=== PATIENT | female | born 1950 | race Caucasian/White ===

== ENCOUNTER 2021-04-10 11:03 | Inpatient (IN) | payer MEDICARE, BC ==
[~2021-04-10] VITALS: Ht 165.1 cm; Wt 72.9 kg
[2021-04-10] MEDS ORDERED: METF-397 PO (12:20)
[2021-04-10] MEDS ORDERED: LEVO75CA5 PO (12:20)
[2021-04-10] MEDS ORDERED: HYDR200T46 PO (12:20)
[2021-04-10] MEDS ORDERED: ADAL80PE2 SQ (12:20)
[2021-04-10] MEDS ORDERED: MONT10TA32 PO (12:20)
[2021-04-10] MEDS ORDERED: CHOL-34 PO (12:20)
[2021-04-10] MEDS ORDERED: PREG75CA75 PO (12:20)
[2021-04-10] MEDS ORDERED: ASPI-1238 PO (12:20)
[2021-04-10] MEDS ORDERED: EZET10TA49 PO ×2 (12:20)
[2021-04-10] MEDS ORDERED: ROPI0.253 PO (12:20)
[2021-04-10] MEDS ORDERED: TRAM50TA3 PO (12:20)
[2021-04-10] MEDS ORDERED: MELO7.5T46 PO (12:20)
[2021-04-10] MEDS ORDERED: LEUC5TAB PO (12:20)
[2021-04-10] MEDS ORDERED: AMIT100T2 PO (12:20)
[2021-04-10] MEDS ORDERED: PANT40TA52 PO (12:20)
[2021-04-10] MEDS ORDERED: ZOLP10TA PO (12:20)
[2021-04-10] MEDS ORDERED: FOLI1TAB33 PO (12:20)
[2021-04-10] MEDS ORDERED: RT-ALBUINH IH (12:20)
[2021-04-10] MEDS ORDERED: METH25VI15 IJ (12:20)
[2021-04-10 15:51] VITALS: BP 121/81
--- OUTSIDE RECORDS SUMMARY | 2021-04-10 16:06 | XMS REPORT | Clinical Summary ---
Author Author [facility] Organization [facility] Address Unknown Phone Unavailable Care Team Providers Care [employer] Name Role Phone Dae Jacinto MD Unavailable Rigo Fierro MD PCP Anita Mondragon MD Unavailable Unavailable Source Comments Some departments are not documenting in the electronic medical record. If you d o not see the information that you expected, contact Release of Information in [facility] Information Management department at [phone] for further assistan ce in locating additional records.[facility] Allergies No Known Active Allergies Medications End Date Status Medication Sig Dispensed Refills Start Date Active pantoprazole DR Take 40 mg by 0 (PROTONIX) 40 mg tablet mouth twice daily. Active metFORMIN-XR(+) Take 500 mg 0 (GLUCOPHAGE XR) 500 mg by mouth tablet twice daily with meals. Active hydroxychloroquine Take 200 mg 0 (PLAQUENIL) 200 mg tablet by mouth twice daily. Active simvastatin (ZOCOR) 40 mg Take 40 mg by 0 tablet mouth at bedtime daily. Active levothyroxine (SYNTHROID) Take 50 mcg 0 50 mcg tablet by mouth daily. Active predniSONE (DELTASONE) 5 Take 7.5 mg 0 mg tablet by mouth daily. Patient takes 1 1/5 tabs daily Active nitrofurantoin SR Take 100 mg 0 (MACROBID) 100 mg capsule by mouth daily. Active traMADol (ULTRAM) 50 mg Take 50 mg by 0 tablet mouth twice daily. Active folic acid (FOLVITE) 1 mg Take 1 mg by 0 tablet mouth daily. Active amitriptyline (ELAVIL) 50 Take 50 mg by 0 mg tablet mouth at bedtime daily. Active montelukast (SINGULAIR) Take 10 mg by 0 10 mg tablet mouth daily. Active Leucovorin Calcium 10 mg Take 0.5 Tabs 0 tab by mouth every 7 days. Active methotrexate PF 25 mg/mL Inject 50 0 injection mg/m2 into area(s) as directed every 7 days. Active pregabalin (LYRICA) 75 mg Take 75 mg by 0 capsule mouth three times daily. Active sodium phosphate Insert or 0 (FLEET'S) 19-7 gram/118 Apply 1 Enema mL enema to rectal area as directed as directed. follow package directions and take every 3-4 days as needed for constipation Active lubiprostone (AMITIZA) 24 Take 1 Cap by 180 Cap 1 12/06/201 mcg cap mouth twice 6 daily with meals. Active Problems Problem Noted Date Urge incontinence 12/17/2015 Overview: Formatting of this note might be differ ent from the original. Extensive surgical hx including KATE, BS O, bladder neck sling, perirectal mass excision. L$/5 back surgery (no pe rineal sensation postop) Chronic constipation L ast Assessment & Plan: Formatting of this note might be differ ent from the original. - VUDS, patient to schedule closer to D ec - cysto - renal US - restart cic q3h Surgical History Surgery Date Site/Laterality Comments HX CHOLECYSTECTOMY 1993 HX SECTION 1976, 1978 HX APPENDECTOMY 1982 HX HYSTERECTOMY 1982 total abdominal LYSIS OF ADHESIONS 2009 HX ENDOSCOPY UPPER GASTROINTESTINAL 06/17/2016 N/A EGD, Fl ex Sig, ARM all in the same day nilda with ENDOSCOPY any provider for dysphagia and obstructive defecation performed by Matteo Jacinto MD at ENDO/GI SIGMOIDOSCOPY 06/17/2016 N/A Flex Sig, EGD, ARM all in the same day nilda with any provider for dysphagia and obstruct carmella defecation performed by Matteo Jacinto MD at ENDO/GI UPPER GASTROINTESTINAL 06/17/2016 N/A ESOPHAG OGASTRODUODENOSCOPY BALLOON DILATATION ENDOSCOPY performed by Manuel Jacinto MD at ENDO/GI UPPER GASTROINTESTINAL 06/17/2016 ESOPHAGOGASTROD UODENOSCOPY BIOPSY performed by ENDOSCOPY Dae Jacinto MD at END O/GI SIGMOIDOSCOPY 06/17/2016 SIGMOIDOSCOPY BIOPS Y performed by Dae Jacinto MD at ENDO/GI ANORECTAL MANOMETRY 06/17/2016 N/A MANOMETRY ANORECTAL, EGD, Flex Sig all on same day nilda with any provider for obstructive defecation and dysphagia per Dr. Jacinto perform ed by Sonia Doyle MD at ENDO/GI Medical History Medical History Date Comments Type II diabetes mellitus (HCC) Essential hypertension Acid reflux Asthma Arthritis 2011 rheumatoid Depression Hyperlipemia Thyroid disorder Family History Medical History Relation Name Comments Autoimmune Disease Daughter lupus Autoimmune Disease Daughter esosinophilic esoph agitis Emphysema Father Autoimmune Disease Maternal rheumtatoid Grandmother Autoimmune Disease Mother rheumatoid GI Cancer Mother Pancreatic Relation Name Status Comments Brother Alive Brother Alive Daughter Alive Daughter Alive Father Maternal Grandfather Maternal Grandmother Mother Paternal Grandfather Paternal Grandmother Social History Date Tobacco Use Types Packs/Day Years Used Never Smoker Smokeless Tobacco: Never Used Comments Alcohol Use Standard Drinks/Week No 0 (1 standard drink = 0.6 o z pure alcohol) Sex Assigned at Date Recorded Not on file Last Filed Vital Signs Reading Time Taken Comments Vital Sign 120/80 06/17/2016 3:11 PM [employer] Blood Pressure 82 06/17/2016 3:11 PM [employer]IST Pulse 37 C (98.6 F) 06/17/2016 1:56 PM [employer] SPECIALIST Temperature 14 04/23/2016 9:56 AM CDT Respiratory Rate 97% 06/17/2016 3:11 PM [employer] SPECIALIST Oxygen Saturation - - Inhaled Oxygen Concentration 74.8 kg (165 lb) 06/17/2016 1:56 PM [employer] SPECIALIST Weight 165.1 cm (5' 5") 06/17/2016 1:56 PM [employer] SPECIALIST Height 27.46 06/17/2016 1:56 PM [employer] SPECIALIST Body Mass Index Plan of Treatment Health Maintenance Due Date Last Done Comments DTAP/TDAP VACCINES (1 - 1969 Tdap) HEPATITIS C SCREENING 1969 PHYSICAL (COMPREHENSIVE) 1969 EXAM BREAST CANCER SCREENING 1991 COLORECTAL CANCER 2001 SCREENING SHINGLES RECOMBINANT 2001 VACCINE (1 of 2) OSTEOPOROSIS 2016 SCREENING/MONITORING PNEUMONIA (PPSV23) 2016 VACCINE (1 of 1 - PPSV23) INFLUENZA VACCINE 02/03/2021 Results Not on filefrom Last 3 Months Insurance Type Payer Benefit Subscriber ID Effective Phone Address Plan / Dates Group PPO BCBS TEDDY BCBS TEDDY [id number] 2001- FED EMP Present PROGRAM Medicare MEDICARE MEDICARE [id number] 2016- PART A AND Present B Advance Directives 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
--- OUTSIDE RECORDS SUMMARY | 2021-04-10 16:06 | XMS REPORT | Clinical Summary ---
Author Author [facility] Organization [facility] Address Unknown Phone Unavailable Care Team Providers Care [employer] Name Role Phone PCP Unavailable Allergies Not on File Medications Not on file Active Problems Not on file Social History Date Tobacco Use Types Packs/Day Years Used Never Assessed Sex Assigned at Date Recorded Not on file Last Filed Vital Signs Not on file Plan of Treatment Not on file Results Not on filefrom Last 3 Months
[2021-04-10] MEDS ORDERED: BISACODYL 10 MG SUPP (DULCOLAX) PR PRN (17:00)
[2021-04-10] MEDS ORDERED: guaiFENesin/CODEINE (ROBITUSSIN AC) 10ML UDC PO PRN (17:00)
[2021-04-10] MEDS ORDERED: DOCUSATE SODIUM 100 MG (COLACE) CAP PO PRN (17:00)
[2021-04-10] MEDS ORDERED: LOPERAMIDE 2 MG (IMODIUM) TABLET PO PRN (17:00)
[2021-04-10] MEDS ORDERED: LACTULOSE SYRUP 10GM/15ML (ENULOSE) 30ML UDC PO PRN (17:00)
[2021-04-10] MEDS ORDERED: ALPRAZolam 0.25 MG (XANAX) TAB PO PRN (17:00)
[2021-04-10] MEDS ORDERED: CALCIUM CARBONATE 500 MG (TUMS) TAB.CHEW PO PRN (17:00)
[2021-04-10] MEDS ORDERED: ONDANSETRON 4 MG (ZOFRAN) ORAL DISSOLVE TAB PO PRN (17:00)
[2021-04-10] MEDS ORDERED: FLEET ENEMA ADULT 1 EA BTL PR PRN (17:00)
[2021-04-10] MEDS ORDERED: diphenhydrAMINE 25 MG TAB (BENADRYL) PO PRN (17:00)
[2021-04-10] MEDS ORDERED: MELATONIN 3 MG TABLET PO PRN (17:00)
[2021-04-10] MEDS ORDERED: METHOTREXATE 50 MG/2 ML PF IJ SCH (17:15)
[2021-04-10] MEDS ORDERED: RT-ALBUTEROL SULF 2.5 MG/3 ML PRE-MIX VIAL IH PRN (17:15)
[2021-04-10] MEDS ORDERED: ACETAMINOPHEN 500 MG TAB (TYLENOL) PO PRN (17:15)
[2021-04-10] MEDS ORDERED: NON-FORMULARY MEDICATION 1 EA EA (Zolpidem Tartrate (Ambien) 10 MG) PO PRN (17:15)
[2021-04-10] MEDS ORDERED: ACETAMINOPHEN 325 MG TABLET PO PRN (17:15)
[2021-04-10] MEDS ORDERED: ADALIMUMAB 40 MG SQ SCH (17:15)
[2021-04-10] MEDS ORDERED: LEUCOVORIN CALCIUM 5 MG PO SCH (17:15)
[2021-04-10] MEDS: MELOXICAM 7.5 MG (MOBIC) TABLET PO SCH (18:26)
[2021-04-10] MEDS: metFORMIN 500 MG (GLUCOPHAGE) TAB PO SCH (18:26)
[2021-04-10] MEDS: HYDROXYCHLOROQUINE 200 MG (PLAQUENIL) TAB PO SCH (18:26)
--- NOTE | 2021-04-10 18:34 | History & Physical ---
ILIRSepidehKHAI LAMBERT 04/10/21 1834: History of Present Illness History of Present Illness Reason for visit/HPI CC: Fall resulting in L closed femur fx s/p MICHAEL HPI: Estefania Erazo is a 70 yo female with a history of RA, T2DM, GERD, hypothyroidism, and hypercholesterolemia, who presents of evaluation and management of rehabilitation s/p MICHAEL. 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 Estefania also states that she has had multiple falls in the recent past d/t L foot deformity 2/2 RA, as well as general gait instability. She since had a MICHAEL on 04/08/[address] Montalvo. Estefania further states that Dr. Montalvo recommended referral to a hand surgeon within the next couple of weeks to address RA-related debility of hands. She states she has a history of constipation, and has not had a bowel movement since Thursday, but has passed flatus. Her appetite is currently good, and is pleasant to converse with. Today she is accompanied by her daughter, who is a pharmacist. 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 She enjoys gardening, and states that she is normally independent and active. CLOF consists of minimal gait (25ft, b/l platform walker), and minimal bed mobility. Date of Admission Apr 10, 2021 at 15:35 Date Seen by a Provider: Apr 10, 2021 Time Seen by a Provider: 17:22 I consulted on this patient on 04/10/21 18:22 Attending Physician Delphine Vargas DO Admitting Physician Pravin Pfeiffer MD Consult Allergies and Home Medications Allergies Coded Allergies: No Known Drug Allergies (Unverified , 04/10/21) Patient Home Medication List Home Medication List Reviewed: Yes Adalimumab (Humira(Cf) Pen) 80 Mg/0.8 Ml Pen.ij.kit, 40 MG SQ EVERY 2 WEEKS, (Reported) Entered as Reported by: CHINTAN COWART on 04/10/21 1220 Last Action: Converted Albuterol Sulfate (Proair Hfa) 1 Puff Puff, 2 PUFF IH Q6H PRN for SHORTNESS OF BREATH, (Reported) Entered as Reported by: CHINTAN COWART on 04/10/211219 Last Action: Continued Amitriptyline HCl (Amitriptyline HCl) 100 Mg Tablet, 100 MG PO HS, (Reported) Entered as Reported by: CHINTAN COWART on 04/10/211219 Last Action: Converted Aspirin (Aspirin EC) 81 Mg Tablet.dr, 81 MG PO BID, (Reported) Entered as Reported by: CHINTAN COWART on 04/10/211219 Last Action: Continued Cholecalciferol (Vitamin D3) (Vitamin D3) 25 Mcg Tablet, 25 MCG PO DAILY, (Reported) Entered as Reported by: CHINTAN COWART on 04/10/211219 Last Action: Continued Ezetimibe (Ezetimibe) 10 Mg Tablet, 10 MG PO DAILY, (Reported) Entered as Reported by: CHINTAN COWART on 04/10/211219 Last Action: Continued Folic Acid (Folic Acid) 1 Mg Tablet, 1 MG PO DAILY, (Reported) Entered as Reported by: CHINTAN COWART on 04/10/211219 Last Action: Continued Hydroxychloroquine Sulfate (Hydroxychloroquine Sulfate) 200 Mg Tablet, 200 MG PO BID, (Reported) Entered as Reported by: CHINTAN COWART on 04/10/211219 Last Action: Continued Leucovorin Calcium (Leucovorin Calcium) 5 Mg Tablet, 5 MG PO FRI, (Reported) Entered as Reported by: CHINTAN COWART on 04/10/211219 Last Action: Converted Levothyroxine Sodium (Levothyroxine) 75 Mcg Capsule, 75 MCG PO DAILY, (Reported) Entered as Reported by: CHINTAN COWART on 04/10/211219 Last Action: Converted Meloxicam (Meloxicam) 7.5 Mg Tablet, 7.5 MG PO Q12H, (Reported) Entered as Reported by: CHINTAN COWART on 04/10/211219 Last Action: Continued Metformin HCl (Metformin HCl) 500 Mg Tablet, 500 MG PO BID, (Reported) Entered as Reported by: CHINTAN COWART on 04/10/211219 Last Action: Continued Methotrexate Sodium/Pf (Methotrexate 25 mg/ml Vial) 25 Mg/1 Ml Vial, 20 MG IJ FRI, (Reported) Entered as Reported by: CHINTAN COWART on 04/10/211219 Last Action: Continued Montelukast Sodium (Montelukast Sodium) 10 Mg Tablet, 10 MG PO DAILY, (Reported) Entered as Reported by: CHINTAN COWART on 04/10/211219 Last Action: Continued Pantoprazole Sodium (Pantoprazole Sodium) 40 Mg Tablet.dr, 40 MG PO BID, (Reported) Entered as Reported by: CHINTAN COWART on 04/10/211219 Last Action: Continued Pregabalin (Pregabalin) 75 Mg Capsule, 75 MG PO Q8H, (Reported) Entered as Reported by: CHINTAN COWART on 04/10/211219 Last Action: Continued Ropinirole HCl (Ropinirole HCl) 0.25 Mg Tablet, 0.25 MG PO HS, (Reported) Entered as Reported by: CHINTAN COWART on 04/10/211219 Last Action: Continued Tramadol HCl (Tramadol HCl) 50 Mg Tablet, 50 MG PO Q6H PRN for PAIN-MODERATE (5- 7), (Reported) Entered as Reported by: CHINTAN COWART on 04/10/211219 Last Action: Continued Zolpidem Tartrate (Ambien) 10 Mg Tablet, 10 MG PO HS PRN for INSOMNIA, (Reported) Entered as Reported by: CHINTAN COWART on 04/10/211219 Last Action: Converted Discontinued Medications Ezetimibe (Ezetimibe) 10 Mg Tablet, 10 MG PO DAILY, (Reported) Discontinued Reason: Duplicate Order Entered as Reported by: CHINTAN COWART on 04/10/211219 Last Action: Discontinued Past Czimsnl-Nbpwmt-Eentse Hx Patient Social History Number of Children: 2 Employed/Student: retired Tobacco Use?: No Use of E-Cig and/or Vaping dev: No Substance use?: No Alcohol Use?: No Pt feels they are or have been: No Current Status Advance Directives: Yes Advance Directive Location: Family to bring in copy Communicates: Verbally Primary Language: Niuean Preferred Spoken Language: Niuean Is interpretation needed?: No Sensory deficits: Vision impairment Implanted or Applied Medical D: None Past Medical History Surgeries: Orthopedic, Rectal Currently Using BIPAP: No (Needs sleep study, and states she requires oxygen at night per Dr. Montalvo) Hypertension Chronic Constipation Degenerate Disk Disease, Rheumatoid Arthritis, Chronic Back Pain, Fractures Hypothyroidsim Review of Systems Constitutional: see HPI Respiratory: cough (Has tickle in throat, causing cough. Daughter wishes to have this monitored) Cardiovascular: no symptoms reported Physical Exam Vital Signs Vital Signs - First Documented 04/10/21 15:51 Temp 36.4 Pulse 91 Resp 20 B/P (MAP) 121/81 (94) Pulse Ox 93 O2 Delivery Room Air Capillary Refill : Height, Weight, BMI Height: '" Weight: lbs. oz. kg; 26.34 BMI Method: General Appearance: No Apparent Distress, WD/WN Respiratory: Lungs Clear, No Accessory Muscle Use, No Respiratory Distress Cardiovascular: Regular Rate, Rhythm Extremity: Normal Capillary Refill Neurologic/Psychiatric: Alert, Oriented x3, Normal Mood/Affect Skin: Pallor (Patient states she has been anemic ) Assessment/Plan Assessment and Plan Debility and minimal gait 2/2 fall resulting in L closed femur fracture s/p MICHAEL 1. Improve mobility, strengthen gait and endurance 2. Follow PT and OT 3. [facility] goal of independence and improved mobility Admission Diagnosis Debility and minimal gait 2/2 fall resulting in L closed femur fracture s/p MICHAEL Admission Status: Other (Inpatient Rehab) DELPHINE VARGAS DO 04/11/21 0558: Allergies and Home Medications Allergies Coded Allergies: No Known Drug Allergies (Unverified , 04/10/21) Patient Home Medication List Adalimumab (Humira(Cf) Pen) 80 Mg/0.8 Ml Pen.ij.kit, 40 MG SQ EVERY 2 WEEKS, (Reported) Entered as Reported by: CHINTAN COWART on 04/10/211219 Last Action: Converted Albuterol Sulfate (Proair Hfa) 1 Puff Puff, 2 PUFF IH Q6H PRN for SHORTNESS OF BREATH, (Reported) Entered as Reported by: CHINTAN COWART on 04/10/211219 Last Action: Continued Amitriptyline HCl (Amitriptyline HCl) 100 Mg Tablet, 100 MG PO HS, (Reported) Entered as Reported by: CHINTAN COWART on 04/10/211219 Last Action: Converted Aspirin (Aspirin EC) 81 Mg Tablet.dr, 81 MG PO BID, (Reported) Entered as Reported by: CHINTAN COWART on 04/10/211219 Last Action: Continued Cholecalciferol (Vitamin D3) (Vitamin D3) 25 Mcg Tablet, 25 MCG PO DAILY, (Reported) Entered as Reported by: CHINTAN COWART on 04/10/211219 Last Action: Continued Ezetimibe (Ezetimibe) 10 Mg Tablet, 10 MG PO DAILY, (Reported) Entered as Reported by: CHINTAN COWART on 04/10/211219 Last Action: Continued Folic Acid (Folic Acid) 1 Mg Tablet, 1 MG PO DAILY, (Reported) Entered as Reported by: CHINTAN COWART on 04/10/211219 Last Action: Continued Hydroxychloroquine Sulfate (Hydroxychloroquine Sulfate) 200 Mg Tablet, 200 MG PO BID, (Reported) Entered as Reported by: CHINTAN COWART on 04/10/211219 Last Action: Continued Leucovorin Calcium (Leucovorin Calcium) 5 Mg Tablet, 5 MG PO FRI, (Reported) Entered as Reported by: CHINTAN COWART on 04/10/211219 Last Action: Converted Levothyroxine Sodium (Levothyroxine) 75 Mcg Capsule, 75 MCG PO DAILY, (Reported) Entered as Reported by: CHINTAN COWART on 04/10/211219 Last Action: Converted Meloxicam (Meloxicam) 7.5 Mg Tablet, 7.5 MG PO Q12H, (Reported) Entered as Reported by: CHINTAN COWART on 04/10/211219 Last Action: Continued Metformin HCl (Metformin HCl) 500 Mg Tablet, 500 MG PO BID, (Reported) Entered as Reported by: CHINTAN COWART on 04/10/211219 Last Action: Continued Methotrexate Sodium/Pf (Methotrexate 25 mg/ml Vial) 25 Mg/1 Ml Vial, 20 MG IJ FRI, (Reported) Entered as Reported by: CHINTAN COWART on 04/10/211219 Last Action: Continued Montelukast Sodium (Montelukast Sodium) 10 Mg Tablet, 10 MG PO DAILY, (Reported) Entered as Reported by: CHINTAN COWART on 04/10/211219 Last Action: Continued Pantoprazole Sodium (Pantoprazole Sodium) 40 Mg Tablet.dr, 40 MG PO BID, (Reported) Entered as Reported by: CHINTAN COWART on 04/10/211219 Last Action: Continued Pregabalin (Pregabalin) 75 Mg Capsule, 75 MG PO Q8H, (Reported) Entered as Reported by: CHINTAN COWART on 04/10/211219 Last Action: Continued Ropinirole HCl (Ropinirole HCl) 0.25 Mg Tablet, 0.25 MG PO HS, (Reported) Entered as Reported by: CHINTAN COWART on 04/10/211219 Last Action: Continued Tramadol HCl (Tramadol HCl) 50 Mg Tablet, 50 MG PO Q6H PRN for PAIN-MODERATE (5- 7), (Reported) Entered as Reported by: CHINTAN COWART on 04/10/211219 Last Action: Continued Zolpidem Tartrate (Ambien) 10 Mg Tablet, 10 MG PO HS PRN for INSOMNIA, (Reported) Entered as Reported by: CHINTAN COWART on 04/10/211219 Last Action: Converted Discontinued Medications Ezetimibe (Ezetimibe) 10 Mg Tablet, 10 MG PO DAILY, (Reported) Discontinued Reason: Duplicate Order Entered as Reported by: CHINTAN COWART on 04/10/211219 Last Action: Discontinued Supervisory-Addendum Brief Verification & Attestation Participated in pt care: history, MDM, physical Personally performed: exam, history, MDM, supervision of care Care discussed with: Medical Student Procedures: n/a Results interpretation: Verified all documentation Verification and Attestation of Medical Student E/M Service A medical student performed and documented this service in my presence. I reviewed and verified all information documented by the medical student and made modifications to such information, when appropriate. I personally performed the physical exam and medical decision making. Delphine Vargas, Apr 11, 2021,05:58 KHAI HDZ Apr 10, 2021 18:34 DELPHINE VARGAS DO Apr 11, 2021 05:58
[2021-04-10 20:38] VITALS: BP 147/71
--- NOTE | 2021-04-10 20:41 | PM&R Post Admission Assessment ---
PM&R HP Date of Visit: Apr 10, 2021 Time of Visit: 18:00 History of Present Illness CC: Left femur fracture repair HPI: This is a 70yoWF pt of Dr. Pfeiffer who sustained a fall and a closed left femur fracture s/p left total hip arthroplasty by Dr. Montalvo. She has a hx of rheumatoid arthritis, DM, GERD, hypothyroidism, and hyperlipidemia. 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 Her current level of functioning is minimal, gait 25 feet, and she will go home alone. History and physical from medical student Cayla Salamanca, [facility] CC: Fall resulting in L closed femur fx s/p MICHAEL HPI: Estefania Erazo is a 70 yo female with a history of RA, T2DM, GERD, hypothyroidism, and hypercholesterolemia, who presents of evaluation and management of rehabilitation s/p MICHAEL. 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 Estefania also states that she has had multiple falls in the recent past d/t L foot deformity 2/2 RA, as well as general gait instability. She since had a MICHAEL on 04/08/[address] Montalvo. Estefania further states that Dr. Montalvo recommended referral to a hand surgeon within the next couple of weeks to address RA-related debility of hands. She states she has a history of constipation, and has not had a bowel movement since Thursday, but has passed flatus. Her appetite is currently good, and is pleasant to converse with. Today she is accompanied by her daughter, who is a pharmacist. 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 She enjoys gardening, and states that she is normally independent and active. CLOF consists of minimal gait (25ft, b/l platform walker), and minimal bed mobility. Past Kanotfz-Yzzjat-Czoqhz Hx Past Med/Social Hx: Reviewed Nursing Past Med/Soc Hx, Reviewed and Corrections made Patient Social History Marrital Status: single Number of Children: 2 Employed/Student: retired Smoking Status: Never a Smoker Past Medical History Surgeries: Orthopedic, Rectal Currently Using BIPAP: No (Needs sleep study, and states she requires oxygen at night per Dr. Montalvo) Cardiac: Hypertension Gastrointestinal: Chronic Constipation Musculoskeletal: Degenerate Disk Disease, Rheumatoid Arthritis, Chronic Back Pain, Fractures Endocrine: Hypothyroidsim PM&R Allergy/Meds/Data Review Allergies Coded Allergies: No Known Drug Allergies (Unverified , 04/10/21) Home Medications Scheduled Adalimumab (Humira(Cf) Pen), 40 MG SQ EVERY 2 WEEKS, (Reported) Amitriptyline HCl (Amitriptyline HCl), 100 MG PO HS, (Reported) Aspirin (Aspirin EC), 81 MG PO BID, (Reported) Cholecalciferol (Vitamin D3) (Vitamin D3), 25 MCG PO DAILY, (Reported) Ezetimibe (Ezetimibe), 10 MG PO DAILY, (Reported) Folic Acid (Folic Acid), 1 MG PO DAILY, (Reported) Hydroxychloroquine Sulfate (Hydroxychloroquine Sulfate), 200 MG PO BID, (Reported) Leucovorin Calcium (Leucovorin Calcium), 5 MG PO FRI, (Reported) Levothyroxine Sodium (Levothyroxine), 75 MCG PO DAILY, (Reported) Meloxicam (Meloxicam), 7.5 MG PO Q12H, (Reported) Metformin HCl (Metformin HCl), 500 MG PO BID, (Reported) Methotrexate Sodium/Pf (Methotrexate 25 mg/ml Vial), 20 MG IJ FRI, (Reported) Montelukast Sodium (Montelukast Sodium), 10 MG PO DAILY, (Reported) Pantoprazole Sodium (Pantoprazole Sodium), 40 MG PO BID, (Reported) Pregabalin (Pregabalin), 75 MG PO Q8H, (Reported) Ropinirole HCl (Ropinirole HCl), 0.25 MG PO HS, (Reported) Scheduled PRN Albuterol Sulfate (Proair Hfa), 2 PUFF IH Q6H PRN for SHORTNESS OF BREATH, (Reported) Tramadol HCl (Tramadol HCl), 50 MG PO Q6H PRN for PAIN-MODERATE (5-7), (Reported) Zolpidem Tartrate (Ambien), 10 MG PO HS PRN for INSOMNIA, (Reported) Discontinued Medications Ezetimibe (Ezetimibe), 10 MG PO DAILY, (Reported) Discontinued Reason: Duplicate Order Current Medications Current Medications Reviewed Review of Systems Constitutional: see HPI, malaise, weakness EENTM: no symptoms reported Respiratory: no symptoms reported Cardiovascular: no symptoms reported Gastrointestinal: no symptoms reported Genitourinary: no symptoms reported Musculoskeletal: back pain, joint pain, muscle pain, muscle stiffness, muscle cramps Skin: no symptoms reported Psychiatric/Neurological: No Symptoms Reported All Other Systems Reviewed Negative Unless Noted: Yes Physical Exam Physical Exam Vital Signs Vital Signs - First Documented 04/10/21 15:51 Temp 36.4 Pulse 91 Resp 20 B/P (MAP) 121/81 (94) Pulse Ox 93 O2 Delivery Room Air Capillary Refill : Height, Weight, BMI Height: '" Weight: lbs. oz. kg; 26.34 BMI Method: General Appearance: No Apparent Distress, WD/WN, Chronically ill HEENT: PERRL/EOMI, Normal ENT Inspection, Pharynx Normal Neck: Full Range of Motion, Normal Inspection, Non Tender, Supple, Carotid Bruit Respiratory: Chest Non Tender, Lungs Clear, Normal Breath Sounds, No Accessory Muscle Use, No Respiratory Distress Cardiovascular: Regular Rate, Rhythm, No Edema, No Gallop, No JVD, No Murmur Back: Normal Inspection, No CVA Tenderness, No Vertebral Tenderness Extremity: Normal Capillary Refill, Normal Inspection, Normal Range of Motion (Except left leg), Non Tender, No Calf Tenderness Neurologic/Psychiatric: Alert, Oriented x3, No Motor/Sensory Deficits, Normal Mood/Affect, Abnormal Gait, Motor Weakness (Generalized) Skin: Pallor (Patient states she has been anemic ) PM&R Medical Assessment & Plan REHAB/MEDICAL ASSESSMENT AND PLAN: REHAB IMPAIRMENT GROUP: Left hip fracture ETIOLOGIC DIAGNOSIS: Left hip fracture The comorbidities that impact the patients function and/or functional outcome by: Severe arthritis rheumatoid type, immunosuppression holding, dislocated thumbs REHAB PLAN: The patient is being admitted to our comprehensive inpatient rehabilitation facility and can tolerate the intensity of service consisting of at least: 180 minutes of therapy a day, 5 out of 7 days a week Rehab treatment will consist of: PT and OT will focus on increasing the use of assistive devices in order to regain independence and ambulatory skills and independent ADLs in order to return home The patient/family has a good understanding of our discharge process and will benefit from an interdisciplinary inpatient rehabilitation program. The patient has potential to make improvement and is in need of at least two of the following multidisciplinary therapies including but not limited to physical, occupational, speech, and prosthetics and orthotics. Additionally the patient will need services from respiratory, nutritional services, wound care, psychology, etc. (Customize this to each patient). Given the patients complex condition and risk of further medical complications, rehabilitation services cannot be safely or effectively provided at a lower level of care such as a nursing home facility. BARRIERS TO DISCHARGE: Severe RA ESTIMATED LOS: 2 weeks DISPOSITION: Home RELEVANT CHANGES SINCE PREADMISSION SCREENING: I have compared the patients medical and functional status at the time of the preadmission screening and there are: No changes PROGNOSIS: Good REHABILITATION GOALS: 1. PT and OT will focus on increasing the use of assistive devices in order to regain independence and ambulatory skills and independent ADLs in order to return home All the above goals were reviewed with the patient and he/she is in agreement. By signing this document, I acknowledge that I have personally performed a full physical examination on this patient within 24 hours of admission to this inpatient rehabilitation facility and have determined the patient to be able to tolerate the above course of treatment at an intensive level for a reasonable period of time. I will be completing a detailed individualized Plan of Care for this patient by day #4 of the patients stay based upon the Preadmission Screen, the Post-Admission Evaluation, and the therapy evaluations. Admission Dx/Comorbidities: (1) Hip fracture ICD Codes: S72.009A - Fracture of unspecified part of neck of unspecified femur , initial encounter for closed fracture Assessment/Plan Assessment and Plan Assess & Plan/Chief Complaint Assessment: Left hip fracture status post repair by Dr. Montalvo uncomplicated Severe rheumatoid arthritis Holding immunosuppressive meds Constipation Hypothyroidism GERD Hyperlipidemia Dislocated thumbs from RA getting x-ray and referral with Dr. GAMBLE Plan: Inpatient rehab protocol Supportive care Monitor pain Bowel regimen LU VARGAS DO Apr 10, 2021 20:41
[2021-04-10] MEDS ORDERED: NON-FORMULARY MEDICATION 1 EA EA (Amitriptyline HCl 100 MG) PO SCH (21:00)
[2021-04-10] MEDS: SENNA W/DOCUSATE (SENOKOT S) TABLET PO SCH (21:02)
[2021-04-10] MEDS: AMITRIPTYLINE 50 MG (ELAVIL) TAB PO SCH (21:03)
[2021-04-10] MEDS: PREGABALIN 75 MG (LYRICA) CAP PO SCH (21:04)
[2021-04-10] MEDS: ZOLPIDEM 5 MG (AMBIEN) TAB PO PRN (21:04)
[2021-04-10] MEDS: ASPIRIN E.C. 81 MG (ECOTRIN) TAB PO SCH (21:04)
[2021-04-10] MEDS: DOCUSATE SODIUM 100 MG (COLACE) CAP PO SCH (21:04)
[2021-04-10] MEDS: PANTOPRAZOLE 40 MG (PROTONIX) TAB PO SCH (21:05)
[2021-04-10] MEDS: polyethylene glycoL POWDER 17 GM (MIRALAX) PACK PO SCH (21:05)
[2021-04-10] MEDS: rOPINIRole 0.25 MG (REQUIP) TAB PO SCH (21:05)
[2021-04-11] MEDS: PREGABALIN 75 MG (LYRICA) CAP PO SCH ×3 (06:01→21:01)
[2021-04-11] MEDS: MELOXICAM 7.5 MG (MOBIC) TABLET PO SCH ×2 (06:03→17:39)
[2021-04-11] MEDS: LEVOTHYROXINE 75 MCG (LEVOTHROID) TABLET PO SCH (06:03)
[2021-04-11 06:30] LABS: BASOPHILS # (AUTO) 0.1 10^3/uL (0.0-0.1); BASOPHILS % (AUTO) 1 % (0-10); EOSINOPHILS # (AUTO) 0.4 10^3/uL (0.0-0.3); EOSINOPHILS % (AUTO) 4 % (0-10); HEMATOCRIT 25 % (35-52); HEMOGLOBIN 7.9 g/dL (11.5-16.0); LYMPHOCYTES # (AUTO) 3.3 10^3/uL (1.0-4.0); LYMPHOCYTES % (AUTO) 34 % (12-44); MEAN CORPUSCULAR HEMOGLOBIN 26 pg (25-34); MEAN CORPUSCULAR HGB CONC 32 g/dL (32-36); MEAN CORPUSCULAR VOLUME 84 fL (80-99); MEAN PLATELET VOLUME 11.7 fL (9.0-12.2); MONOCYTES % (AUTO) 10 % (0-12); NEUTROPHILS # (AUTO) 4.9 10^3/uL (1.8-7.8); NEUTROPHILS % (AUTO) 50 % (42-75); PLATELET COUNT 227 10^3/uL (130-400); WHITE BLOOD COUNT 9.9 10^3/uL (4.3-11.0)
[2021-04-11 06:43] LABS: ALBUMIN 3.4 GM/DL (3.2-4.5); POTASSIUM 4.2 MMOL/L (3.6-5.0)
[2021-04-11 06:44] LABS: CALCIUM 9.1 MG/DL (8.5-10.1)
[2021-04-11 06:45] LABS: TOTAL PROTEIN 6.2 GM/DL (6.4-8.2)
[2021-04-11 06:47] LABS: BILIRUBIN,TOTAL 0.4 MG/DL (0.1-1.0)
[2021-04-11 06:49] LABS: CREATININE SERUM 0.78 MG/DL (0.60-1.30)
[2021-04-11 07:58] VITALS: BP 129/74
[2021-04-11] MEDS: ASPIRIN E.C. 81 MG (ECOTRIN) TAB PO SCH ×2 (08:16→20:42)
[2021-04-11] MEDS: PANTOPRAZOLE 40 MG (PROTONIX) TAB PO SCH ×2 (08:16→20:41)
[2021-04-11] MEDS: VITAMIN D3 25 MCG (1,000 UNITS) TABLET PO SCH (08:16)
[2021-04-11] MEDS: HYDROXYCHLOROQUINE 200 MG (PLAQUENIL) TAB PO SCH ×2 (08:17→17:39)
[2021-04-11] MEDS: FOLIC ACID 1 MG TAB PO SCH (08:17)
[2021-04-11] MEDS: metFORMIN 500 MG (GLUCOPHAGE) TAB PO SCH ×2 (08:17→17:39)
[2021-04-11] MEDS: SENNA W/DOCUSATE (SENOKOT S) TABLET PO SCH ×2 (08:17→20:42)
[2021-04-11] MEDS: eZETimibe 10 MG (ZETIA) TABLET PO SCH (08:17)
[2021-04-11] MEDS: MONTELUKAST 10 MG (SINGULAIR) TAB PO SCH (08:17)
[2021-04-11] MEDS: DOCUSATE SODIUM 100 MG (COLACE) CAP PO SCH ×2 (08:17→20:42)
[2021-04-11] MEDS: polyethylene glycoL POWDER 17 GM (MIRALAX) PACK PO SCH ×2 (08:18→20:59)
[2021-04-11 08:44] VITALS: BP 126/72
[2021-04-11] MEDS ORDERED: NON-FORMULARY MEDICATION 1 EA EA (Levothyroxine Sodium (Levothyroxine) 75 MCG) PO SCH (09:00)
--- NOTE | 2021-04-11 09:00 | Occupational Therapy Eval ---
OT Evaluation-General/PLF Medical Diagnosis Admission Date Apr 10, 2021 at 15:35 Medical Diagnosis: L MICHAEL Onset Date: Apr 08, 2021 Therapy Diagnosis Therapy Diagnosis: decreased ADL status Precautions Precautions/Isolations: Fall Prevention, Standard Precautions Weight Bear Status Weight Bearing Restriction: Weight Bearing/Tolerated Location Restriction: L LE Referral Physician: Kathy Lieberman Reason: Evaluation/Treatment Medical History Pertinent Medical History: Arthritis, DM, GERD Additional Medical History asthma, broken nose, depression, HLD, thyroid disease, R carpal tunnel surgery, b/l rotator cuff surgery, lumbar disc surgery. 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 She has everything she needs on main level. ADL-Prior Level of Function SCALE: Activities may be completed with or without assistive devices. 9-Dispfsowfg-rhqbkdi completes the activity by him/herself with no assistance from a helper. 5-Set-up or Clean-up Assistance-helper sets up or cleans up; patient completes activity. [place] assists only prior to or following the activity. 4-Supervision or Touching Assistance-helper provides verbal cues and/or touching/steadying and/or contact guard assistance as patient completes activity. Assistance may be provided throughout the activity or intermittently. 3-Partial/Moderate Assistance-helper does LESS THAN HALF the effort. [place] lifts, holds or supports trunk or limbs, but provides less than half the effort. 2-Substantial/Maximal Assistance-helper does MORE THAN HALF the effort. [place] lifts or holds trunk or limbs and provides more than half the effort. 1-Rhcawijdo-fplxhc does ALL the effort. Patient does none of the effort to complete the activity. Or, the assistance of 2 or more helpers is required for the patient to complete the activity. If activity was not attempted, code reason: 7-Patient Refused. 9-Not Applicable-not attempted and the patient did not perform the activity before the current illness, exacerbation or injury. 10-Not Attempted due to Environmental Limitations-(lack of equipment, weather restraints, etc.). 88-Not Attempted due to Medical Conditions or Safety Concerns. ADL PLOF Comments IND with I/ADLs at PLOF and IND with functional mobility. She has a walking stick she uses outside but has been unable to hold onto it lately due to RA and ruptured tendons at thumb. Self Care: Independent Functional Cognition: Independent DME/Equipment: Bath Chair, Grab Bars, Shower OT Current Status Subjective Pt in bed, agreeable to OT Tx. Pt did not verbalize pain rating, but states she has pain only at incision. Mental Status/Objective Patient Orientation: Person, Place, Time, Situation Current Glasses/Contacts: Yes Hearing Aids: No Dentures/Partials: No Hand Dominance: Right Upper Extremity ROM WFL at shoulders, BUE shoulder flexion to approx 140 degrees, WFL at elbows. Decreased gross grasp bilaterally, and decreased thumb movements bilaterally due to ruptured tendons. Pt unable to make full fist bilaterally. Upper Extremity Coordination decreased. Upper Extremity Sensation WFL Upper Extremity Strength grossly 3+/5 ADL-Treatment Eating (QC): 5 (set up assistance. Pt able to use universal cuff to eat meals. Requires assistance opening containers and cutting food.) Oral Hygiene (QC): 4 (CGA in standing. Pt able to put toothpaste onto toothbrush and brush teeth. pt required assistance turning off electric toothbrush. ) Shower/Bathe Self (QC): 3 (Assist LLE lower legs/feet. Pt able to wash all other parts, CGA in stand to wash buttocks.) Upper Body Dressing (QC): 5 (set up ) Lower Body Dressing (QC): 3 (Assistance doffing/donning LLE, pt able to manage RLE and pant hike.) On/Off Footwear (QC): 3 (Mod A. Pt able to complete RLE, assistance LLE) Toileting Hygiene (QC): 3 (Min A standing balance during pant hike. Pt able to complete hyiene.) Other Treatments Pt in bed, transferred supine to sit EOB at [facility]. Pt used bilateral platform walker in order to perform functional mobility to bathroom and onto RI, [facility]. Pt doffed clothes, completed shower, then transferred to chair to dry off and don clothes. Pt stood at sink to complete oral care, required clean up assistance in order to turn off electric toothbrush. Pt attempted to turn it off but unable to push button hard enough. Pt used platform walker to return to recliner, CGA. Post tx, pt seated in recliner, call light in reach and all needs met. Education OT Patient Education: Correct positioning, Energy conservation, Modified ADL techniques, Progress toward Goal/Update tx plan, Purpose of tx/functional activities, Rehab process Teaching Recipient: Patient Teaching Methods: Discussion Response to Teaching: Verbalize Understanding OT Short Term Goals Short Term Goals Time Frame: Apr 19, 2021 Toileting hygiene: 4 Shower/bathe self: 4 Lower body dressin Putting on/taking off footwear: 4 OT Call Or Contact Centre Manager Goals Fdc Goals Time Frame: May 03, 2021 Eating (QC): 6 Oral Hygiene (QC): 6 Toileting Hygiene (QC): 6 Shower/Bathe Self (QC): 6 Upper Body Dressing (QC): 6 Lower Body Dressing (QC): 6 On/Off Footwear (QC): 6 Additional Goals: 1-Demonstrate ADL Tasks, 2-Verbalize Understanding, 3- ImproveStrength/Juan 1=Demonstrate adherence to instructed precautions during ADL tasks. 2=Patient will verbalize/demonstrate understanding of assistive devices/modifications for ADL. 3=Patient will improve strength/tolerance for activity to enable patient to perform ADL's. OT Education/Plan Problem List/Assessment Assessment: Decreased Activ Tolerance, Decreased UE Strength, Impaired Funct Balance, Impaired I ADL's, Impaired Self-Care Skills, Restricted Funct UE ROM Discharge Recommendations Plan/Recommendations: Continue POC Treatment Plan/Plan of Care Patient would benefit from OT for education, treatment and training to promote independence in ADL's, mobility, safety and/or upper extremity function for ADL' s. Plan of Care: ADL Retraining, Functional Mobility, Group Exercise/Act as Ind, UE Funct Exercise/Act Treatment Duration: May 03, 2021 Frequency: At least 5 of 7 days/Wk (IRF) Estimated Hrs Per Day: 1.5 hours per day Time/GCodes Start Time: 08:00 Stop Time: 09:00 Total Time Billed (hr/min): 60 Billed Treatment Time 1, EVM (10'), ADL 3 (50') SARAN RODRIGUEZ OT Apr 11, 2021 09:00
--- NOTE | 2021-04-11 09:59 | PM&R Progress Note ---
Subjective HPI/CC On Admission Date Seen by Provider: Apr 11, 2021 Time Seen by Provider: 10:00 Subjective/Events-last exam 04/11/2021: Patient doing pretty well Hemoglobin 7.9 Oxygen at night used Hand x-rays reviewed with Dr. Mcnamara who will see her as an outpatient Pain is pretty significant since she is on her third day status post hip fracture repair Checking iron Review of Systems General: Fatigue, Malaise Musculoskeletal: leg pain, foot pain Objective Exam Vital Signs Vital Signs Date Time Temp Pulse Resp B/P (MAP) Pulse Ox O2 Delivery O2 Flow Rate FiO2 04/11/21 18:30 37.7 04/11/21 09:48 Room Air 04/11/21 08:44 103 16 126/72 (90) 92 Capillary Refill : General Appearance: No Apparent Distress, WD/WN, Chronically ill HEENT: PERRL/EOMI, Normal ENT Inspection, Pharynx Normal Neck: Full Range of Motion, Normal Inspection, Non Tender, Supple, Carotid Bruit Respiratory: Chest Non Tender, Lungs Clear, Normal Breath Sounds, No Accessory Muscle Use, No Respiratory Distress Cardiovascular: Regular Rate, Rhythm, No Edema, No Gallop, No JVD, No Murmur Back: Normal Inspection, No CVA Tenderness, No Vertebral Tenderness Extremity: Normal Capillary Refill, Normal Inspection, Normal Range of Motion (Except left leg), Non Tender, No Calf Tenderness Neurologic/Psychiatric: Alert, Oriented x3, No Motor/Sensory Deficits, Normal Mood/Affect, Abnormal Gait, Motor Weakness (Generalized) Skin: Pallor (Patient states she has been anemic ) Results/Procedures Lab Laboratory Tests 04/11/21 05:19 Patient resulted labs reviewed. FIM Transfers Therapy Code Descriptions/Definitions Functional [place] Measure: 0=Not Assessed/NA 4=Minimal Assistance 1=Total Assistance 5=Supervision or Setup 2=Maximal Assistance 6=Modified [place] 3=Moderate Assistance 7=Complete IndependenceSCALE: Activities may be completed with or without assistive devices. 4-Jfjtnztzkr-qakptnr completes the activity by him/herself with no assistance from a helper. 5-Set-up or Clean-up Assistance-helper sets up or cleans up; patient completes activity. [place] assists only prior to or following the activity. 4-Supervision or Touching Assistance-helper provides verbal cues and/or touching/steadying and/or contact guard assistance as patient completes activity. Assistance may be provided throughout the activity or intermittently. 3-Partial/Moderate Assistance-helper does LESS THAN HALF the effort. [place] lifts, holds or supports trunk or limbs, but provides less than half the effort. 2-Substantial/Maximal Assistance-helper does MORE THAN HALF the effort. [place] lifts or holds trunk or limbs and provides more than half the effort. 6-Tnzpncwat-bxbpdh does ALL the effort. Patient does none of the effort to complete the activity. Or, the assistance of 2 or more helpers is required for the patient to complete the activity. If activity was not attempted, code reason: 7-Patient Refused. 9-Not Applicable-not attempted and the patient did not perform the activity before the current illness, exacerbation or injury. 10-Not Attempted due to Environmental Limitations-(lack of equipment, weather restraints, etc.). 88-Not Attempted due to Medical Conditions or Safety Concerns. ADL-Treatment Eating (QC): 5 (set up assistance. Pt able to use universal cuff to eat meals. Requires assistance opening containers and cutting food.) Oral Hygiene (QC): 4 (CGA in standing. Pt able to put toothpaste onto toothbrush and brush teeth. pt required assistance turning off electric toothbrush. ) Shower/Bathe Self (QC): 3 (Assist LLE lower legs/feet. Pt able to wash all other parts, CGA in stand to wash buttocks.) Upper Body Dressing (QC): 5 (set up ) Lower Body Dressing (QC): 3 (Assistance doffing/donning LLE, pt able to manage RLE and pant hike.) On/Off Footwear (QC): 3 (Mod A. Pt able to complete RLE, assistance LLE) Toileting Hygiene (QC): 3 (Min A standing balance during pant hike. Pt able to complete hyiene.) Assessment/Plan Assessment and Plan Assess & Plan/Chief Complaint Assessment: Left hip fracture status post repair by Dr. Montalvo uncomplicated Severe rheumatoid arthritis Holding immunosuppressive meds Constipation Hypothyroidism GERD Hyperlipidemia Dislocated thumbs from RA getting x-ray and referral with Dr. GAMBLE Plan: Inpatient rehab protocol Supportive care Monitor pain Bowel regimen 04/11/2021: Monitor hemoglobin Check iron level Check B12 level (1) Hip fracture LU VARGAS DO Apr 11, 2021 09:59
--- NOTE | 2021-04-11 10:39 | Diagnostic Imaging Report ---
HISTORY: Rheumatoid arthritis, thumb dislocation. TECHNIQUE: 3 views of the right and left hands COMPARISON: None FINDINGS: Right hand: No acute fracture is seen in the right hand. There is slight ulnar deviation at the 2nd and 3rd PIP joints, otherwise alignment appears normal. There is severe, end-stage osteoarthritis at the base of the thumb and the triscaphe joint with severe degenerative changes in the distal interphalangeal joints as well as the 2nd, 3rd, and 5th proximal interphalangeal joints. The MCP joints and the radiocarpal joint are relatively preserved. Left hand: No acute fracture seen in the left hand. There is severe, end-stage osteoarthritis of the base of the left thumb with marked flattening and remodeling of the articular surfaces. There are severe degenerative changes in the distal interphalangeal joints and proximal interphalangeal joints of the 2nd through 5th fingers. MCP joints and radiocarpal joint are relatively preserved. Alignment otherwise appears normal. IMPRESSION: 1. 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 Dictated by: Dictated on workstation # [id number]
--- NOTE | 2021-04-11 11:51 | Physical Therapy Evaluation ---
PT Evaluation-General Medical Diagnosis Admission Date Apr 10, 2021 at 15:35 Medical Diagnosis: L MICHAEL (anterior) Onset Date: Apr 08, 2021 Therapy Diagnosis Therapy Diagnosis: impaired mobility, strength, endurance Precautions Precautions/Isolations: Fall Prevention, Standard Precautions Weight Bear Status Left Lower Extremity: Left Weight Bearing/Tolerated Referral Physician: Delphine Chavez DO Medical History Pertinent Medical History: Arthritis, DM, GERD, Rheumatoid Arthritis Additional Medical History depression, HLD, thyroid disease, R carpal tunnel surgery, b/l rotator cuff surgery, lumbar disc surgery Reviewed History: Yes Social History Home: Multilevel Current Living Status: Alone Entry Into Home: Stairs With Railing PT Steps Into Home: 2 Prior Prior Level of Function SCALE: Activities may be completed with or without assistive devices. 8-Gapskhpiva-tczihzt completes the activity by him/herself with no assistance from a helper. 5-Set-up or Clean-up Assistance-helper sets up or cleans up; patient completes activity. [place] assists only prior to or following the activity. 4-Supervision or Touching Assistance-helper provides verbal cues and/or touching/steadying and/or contact guard assistance as patient completes activity. Assistance may be provided throughout the activity or intermittently. 3-Partial/Moderate Assistance-helper does LESS THAN HALF the effort. [place] lifts, holds or supports trunk or limbs, but provides less than half the effort. 2-Substantial/Maximal Assistance-helper does MORE THAN HALF the effort. [place] lifts or holds trunk or limbs and provides more than half the effort. 4-Ftwcsfrnk-uworsl does ALL the effort. Patient does none of the effort to complete the activity. Or, the assistance of 2 or more helpers is required for the patient to complete the activity. If activity was not attempted, code reason: 7-Patient Refused. 9-Not Applicable-not attempted and the patient did not perform the activity before the current illness, exacerbation or injury. 10-Not Attempted due to Environmental Limitations-(lack of equipment, weather restraints, etc.). 88-Not Attempted due to Medical Conditions or Safety Concerns. Bed Mobility: 6 Transfers (B,C,W/C): 6 Gait: 6 Stairs: 6 Indoor Mobility (Ambulation): Independent Stairs: Independent PT Evaluation-Current Subjective Patient in recliner pre tx, agrees to PT, has 3/10 pain in left hip. She has some unrated low back pain too. Pt/Family Goals to be independent at home Objective Patient Orientation: Person, Place, Situation ROM/Strength ROM Lower Extremities WNL on RLE, LLE WNL but hip not tested due to pain Sensory Vision: Wears Glasses Hearing: Functional Hand Dominance: Right Sensation Right Lower Extremit: Intact Sensation Left Lower Extremity: Intact Transfers Roll Left & Right (QC): 6 Sit to Lying (QC): 3 Lying to Sitting/Side of Bed(Q: 3 Sit to Stand (QC): 3 Chair/Tft-ya-Hgxwo Xfer(QC): 4 Toilet Transfer (QC): 4 Car Transfer (QC): 3 Patient performs bed mobility with independence, supine <-> sit min assist, sit <-> stand min assist from lower surfaces but CGA for higher surfaces, transfers CGA, car transfer min assist. Cues for positioning and safety. Gait Does the Patient Walk?: Yes Mode of Locomotion: Walk Anticipated Mode of Locomotion: Walk Walk 10 feet (QC): 4 Walk 50 ft with 2 Turns(QC): 4 Walk 150 ft (QC): 4 Walking 10ft/uneven surface-QC: 4 Distance: 20', 150' Gait Assistive Device: Walker Platform (bilateral platform) Comments/Gait Description Patient can ambulate 150' with a rolling bilateral platform walker with CGA (including 50' with at least 2 turns of 90 degrees and 10' over an uneven surface), gait is slow and antalgic but she has good step through and weight bearing, patient has to use a bilateral platform walker because she cannot cut off man a normal walker's handles. Wheelchair Training Does the Pt Use a Wheelchair?: No Wheel 50 ft with 2 turns (QC): 9 Wheel 150 ft (QC): 9 Stairs #of Steps: 1 1 Step (curb) (QC): 4 4 Steps (QC): 88 12 Steps (QC): 88 Walking Assistive Device: Walker Patient can go up and down 1 step using a bilateral platform walker with CGA, cues for foot placement Balance Sitting Static: Normal Sitting Dynamic: Normal Standing Static: Good Standing Dynamic: Good Picking up an Object (QC): 88 Treatment supine total anterior hip protocol x20 (AP, QS, GS, HS, SAQ) Assessment/Needs Patient in bed post tx with nurse call, phone, tray, all needs met. Patient has impaired mobility, strength, endurance. She uses a bilateral platform walker for transfers and ambulation, needs min assist to stand from lower surfaces. Rehab Potential: Fair PT Short Term Goals Short Term Goals Time Frame: Apr 18, 2021 Roll Left & Right: 6 Sit to lyin Lying to sitting on side of be: 4 Sit to stand: 4 Walk 10 feet: 4 Walk 50 feet with two turns: 4 Walk 150 feet: 4 PT Learning Strategist Goals Learning Strategist Goals PT Learning Strategist Goals Time Frame: May 02, 2021 Roll Left & Right (QC): 6 Sit to Lying (QC): 6 Lying-Sitting on Side/Bed(QC): 6 Sit to Stand (QC): 6 Chair/Xpc-rb-Nzszg Xfer(QC): 6 Toilet Transfer (QC): 6 Car Transfer (QC): 6 Does the Patient Walk: Yes Walk 10 feet (QC): 6 Walk 50ft with 2 Turns (QC): 6 Walk 150 ft (QC): 6 Walking 10ft on Uneven Surface: 6 1 Step (curb) (QC): 4 4 Steps (QC): 4 12 Steps (QC): 88 Picking up an Object (QC): 88 Wheel 50 feet with 2 turns (QC: 9 Wheel 150 feet: 9 PT Plan Problem List Problem List: Activity Tolerance, Functional Strength, Safety, Balance, Gait, Transfer, Bed Mobility, ROM Treatment/Plan Treatment Plan: Continue Plan of Care Treatment Plan: Bed Mobility, Education, Functional Activity Juan, Functional Strength, Group Therapy, Gait, Safety, Therapeutic Exercise, Transfers Treatment Duration: May 02, 2021 Frequency: At least 5 of 7 days/Wk (IRF) Estimated Hrs Per Day: 1.5 hours per day Patient and/or Family Agrees t: Yes Safety Risks/Education Patient Education: Gait Training, Transfer Techniques, Steps, Reviewed Precautions, Correct Positioning, Safety Issues Teaching Recipient: Patient Teaching Methods: Demonstration, Discussion Response to Teaching: Reinforcement Needed Discharge Recommendations Plan Patient will perform bed mobility and transfer training, balance and endurance training, functional strengthening, stair training, gait training, and education, to improve functional mobility and independence at home. Therapy Discharge Recommendati: Home & Family, Post Acute PT Time/GCodes Time In: 1100 Time Out: 1200 Total Billed Treatment Time: 60 Total Billed Treatment 1 visit EVM 30' EX 15' FA 15' SHAY GIL PT Apr 11, 2021 11:51
--- NOTE | 2021-04-11 13:37 | IRF PAI BIMS ---
BIMS BIMS IRF ROXANE BIMS: IRF ROXANE BIMS Response (Comments) Value Expression of Ideas and Wants (Verbal/Non Verbal) Without Difficulty Understanding Verbal Content Understands Should Brief Interview for Mental Status be Conducted Yes 1 Repitition of Three Words Three 3 Year Correct Month Accurate Within 5 Days Day Correct Recalls Socks Yes, No Cue Required 2 Recalls Blue Yes, No Cue Required 2 Recalls Bed Yes, No Cue Required 2 Total 10 Notes: Pt correct with year (score 3), month (score 2), and day (score 1). Total score should be 15/15 SARAN RODRIGUEZ OT Apr 11, 2021 13:37
--- NOTE | 2021-04-11 14:19 | Occupational Ther Daily Note ---
OT Current Status-Daily Note Subjective Pt was setting up in bed upon OT arrival. Pt stated she was ready for her tx session today. Pt also stated she needed to use the bathroom during tx session. Mental Status/Objective Patient Orientation: Person, Place, Situation ADL-Treatment Therapy Code Descriptions/Definitions Functional [place] Measure: 0=Not Assessed/NA 4=Minimal Assistance 1=Total Assistance 5=Supervision or Setup 2=Maximal Assistance 6=Modified [place] 3=Moderate Assistance 7=Complete IndependenceSCALE: Activities may be completed with or without assistive devices. 3-Vgskmmhsuq-omfqhjv completes the activity by him/herself with no assistance from a helper. 5-Set-up or Clean-up Assistance-helper sets up or cleans up; patient completes activity. [place] assists only prior to or following the activity. 4-Supervision or Touching Assistance-helper provides verbal cues and/or touching/steadying and/or contact guard assistance as patient completes activity. Assistance may be provided throughout the activity or intermittently. 3-Partial/Moderate Assistance-helper does LESS THAN HALF the effort. [place] lifts, holds or supports trunk or limbs, but provides less than half the effort. 2-Substantial/Maximal Assistance-helper does MORE THAN HALF the effort. [place] lifts or holds trunk or limbs and provides more than half the effort. 5-Afudrmosq-rlrixp does ALL the effort. Patient does none of the effort to complete the activity. Or, the assistance of 2 or more helpers is required for the patient to complete the activity. If activity was not attempted, code reason: 7-Patient Refused. 9-Not Applicable-not attempted and the patient did not perform the activity before the current illness, exacerbation or injury. 10-Not Attempted due to Environmental Limitations-(lack of equipment, weather restraints, etc.). 88-Not Attempted due to Medical Conditions or Safety Concerns. Toileting Hygiene (QC): 4 (Pt able to complete hygiene and clothing management, CGA in stand for balance.) Toilet Transfer (QC): 4 (CGA on/off BSC over toilet) Other Treatment Pt was setting up in bed upon OT arrival. Pt stated she was ready for her tx session today. OT educated pt on AE devices available to purchase in order to increase pt's independence with ADLs/IADLs at home. Education provided on sock aide and dressing stick, rocker knife, and button hook, along with other items. Pt requested to use the bathroom. Pt participated in bed mobility from seated in bed to EOB at SBA. Pt transferred from EOB to standing w/ bilateral platform walker at [facility]. Pt then transferred into bathroom, see above for toileting task QCs. Pt then returned to bed, able to transfer sit to supine with SBA. Post tx, pt in bed, call light in reach and all needs met. Education OT Patient Education: Correct positioning, Energy conservation, Progress toward Goal/Update tx plan, Purpose of tx/functional activities, Safety issues, Transfer techniques Teaching Recipient: Patient Teaching Methods: Discussion Response to Teaching: Verbalize Understanding OT Short Term Goals Short Term Goals Time Frame: Apr 19, 2021 Toileting hygiene: 4 Shower/bathe self: 4 Lower body dressin Putting on/taking off footwear: 4 OT Stenciler Goals Stenciler Goals Time Frame: May 03, 2021 Eating (QC): 6 Oral Hygiene (QC): 6 Toileting Hygiene (QC): 6 Shower/Bathe Self (QC): 6 Upper Body Dressing (QC): 6 Lower Body Dressing (QC): 6 On/Off Footwear (QC): 6 Additional Goals: 1-Demonstrate ADL Tasks, 2-Verbalize Understanding, 3- ImproveStrength/Juan 1=Demonstrate adherence to instructed precautions during ADL tasks. 2=Patient will verbalize/demonstrate understanding of assistive devices/modifications for ADL. 3=Patient will improve strength/tolerance for activity to enable patient to perform ADL's. OT Education/Plan Problem List/Assessment Assessment: Decreased Activ Tolerance, Decreased UE Strength, Impaired Coordination, Impaired Funct Balance, Impaired I ADL's, Impaired Self-Care Skills Discharge Recommendations Plan/Recommendations: Continue POC Treatment Plan/Plan of Care Patient would benefit from OT for education, treatment and training to promote independence in ADL's, mobility, safety and/or upper extremity function for ADL's. Plan of Care: ADL Retraining, Functional Mobility, Group Exercise/Act as Ind, UE Funct Exercise/Act Treatment Duration: May 03, 2021 Frequency: At least 5 of 7 days/Wk (IRF) Estimated Hrs Per Day: 1.5 hours per day Rehab Potential: Fair Time/GCodes Start Time: 13:30 Stop Time: 14:10 Total Time Billed (hr/min): 40 Billed Treatment Time 1 Visit, ADL 3 (40') SARAN RODRIGUEZ OT Apr 11, 2021 14:19
--- NOTE | 2021-04-11 15:24 | Physical Therapy Daily Note ---
PT Daily Note-Current Subjective Patient reports almost no pain at this time. She states that she experiences some tightness in the incision, however reports that weight bearing doesn't aggravate the pain. Mental Status Patient Orientation: Person Transfers SCALE: Activities may be completed with or without assistive devices. 9-Xpucltpdko-aqadvgz completes the activity by him/herself with no assistance from a helper. 5-Set-up or Clean-up Assistance-helper sets up or cleans up; patient completes activity. [place] assists only prior to or following the activity. 4-Supervision or Touching Assistance-helper provides verbal cues and/or touching/steadying and/or contact guard assistance as patient completes activity. Assistance may be provided throughout the activity or intermittently. 3-Partial/Moderate Assistance-helper does LESS THAN HALF the effort. [place] lifts, holds or supports trunk or limbs, but provides less than half the effort. 2-Substantial/Maximal Assistance-helper does MORE THAN HALF the effort. [place] lifts or holds trunk or limbs and provides more than half the effort. 7-Hyozhnmsd-nomejl does ALL the effort. Patient does none of the effort to complete the activity. Or, the assistance of 2 or more helpers is required for the patient to complete the activity. If activity was not attempted, code reason: 7-Patient Refused. 9-Not Applicable-not attempted and the patient did not perform the activity before the current illness, exacerbation or injury. 10-Not Attempted due to Environmental Limitations-(lack of equipment, weather restraints, etc.). 88-Not Attempted due to Medical Conditions or Safety Concerns. Roll Left & Right (QC): 4 Sit to Lying (QC): 4 Lying to Sitting/Side of Bed(Q: 4 Sit to Stand (QC): 4 Chair/Bnp-lm-Beqex Xfer(QC): 4 Weight Bearing Left Lower Extremity: Left Weight Bearing/Tolerated Gait Training Does the Patient Walk?: Yes Distance: 75 feet x 2 Walk 10 feet (QC): 4 Walk 50 ft with 2 Turns(QC): 4 Gait Persons Needed: 1 Gait Assistive Device: FWW Exercises Supine Ex: Ankle pumps, Quad Set, Glut sets Supine Reps: 20 NuStep Minutes: 10 NuStep Workload: 4 Treatments Visit, Gait, Ex Assessment Current Status: Fair Progress Patient tolerated treatment well. Demonstrates SBA with with all observed bed mobility and transfers. She is able to use her right LE to assist her left LE into the bed. Patient ambulates 75 feet x 2 with platform FWW, with SBA and verbal cues for safety in progression. Patient ambulates from room to the PT gym to perform the Nu Step, then ambulates back to her room. Patient performs LE therapeutic exercise in supine as listed above. Patient in bed post treatment with all needs met, nursing notified, call light in reach. PT Short Term Goals Short Term Goals Time Frame: Apr 18, 2021 Roll Left & Right: 6 Sit to lyin Lying to sitting on side of be: 4 Sit to stand: 4 Walk 10 feet: 4 Walk 50 feet with two turns: 4 Walk 150 feet: 4 PT Manager Of Tax Goals Nursing Home Goals PT Nursing Home Goals Time Frame: May 02, 2021 Roll Left & Right (QC): 6 Sit to Lying (QC): 6 Lying-Sitting on Side/Bed(QC): 6 Sit to Stand (QC): 6 Chair/Asm-fy-Oucqf Xfer(QC): 6 Toilet Transfer (QC): 6 Car Transfer (QC): 6 Does the Patient Walk: Yes Walk 10 feet (QC): 6 Walk 50ft with 2 Turns (QC): 6 Walk 150 ft (QC): 6 Walking 10ft on Uneven Surface: 6 1 Step (curb) (QC): 4 4 Steps (QC): 4 12 Steps (QC): 88 Picking up an Object (QC): 88 Wheel 50 feet with 2 turns (QC: 9 Wheel 150 feet: 9 PT Plan Treatment/Plan Treatment Plan: Continue Plan of Care Treatment Plan: Bed Mobility, Education, Functional Activity Juan, Functional Strength, Group Therapy, Gait, Safety, Therapeutic Exercise, Transfers Treatment Duration: May 02, 2021 Frequency: At least 5 of 7 days/Wk (IRF) Estimated Hrs Per Day: 1.5 hours per day Patient and/or Family Agrees t: Yes Safety Risks/Education Patient Education: Gait Training, Transfer Techniques, Safety Issues Teaching Recipient: Patient, Family Teaching Methods: Demonstration, Discussion Response to Teaching: Verbalize Understanding, Return Demonstration Time/GCodes Time In: 1430 Time Out: 1500 Total Billed Treatment Time: 30 Total Billed Treatment Visit, gait, Ex JAMEY LUZ PT Apr 11, 2021 15:24
[2021-04-11] MEDS ORDERED: FLU QUAD HIGH DOSE 240 MCG/0.7 ML 2021-22 (FLUZONE) IM ONE (15:45)
[2021-04-11 20:00] VITALS: BP 143/74
[2021-04-11] MEDS: ZOLPIDEM 5 MG (AMBIEN) TAB PO PRN (20:40)
[2021-04-11] MEDS: AMITRIPTYLINE 50 MG (ELAVIL) TAB PO SCH (20:41)
[2021-04-11] MEDS: rOPINIRole 0.25 MG (REQUIP) TAB PO SCH (20:55)
[2021-04-12] MEDS: PREGABALIN 75 MG (LYRICA) CAP PO SCH ×3 (05:58→20:45)
[2021-04-12] MEDS: LEVOTHYROXINE 75 MCG (LEVOTHROID) TABLET PO SCH (05:58)
[2021-04-12] MEDS: MELOXICAM 7.5 MG (MOBIC) TABLET PO SCH ×2 (05:58→17:48)
[2021-04-12] MEDS ORDERED: CYANOCOBALAMIN INJ 1000 MCG/ML IM ONE (06:00)
[2021-04-12] MEDS: CYANOCOBALAMIN 1,000 MCG (VITAMIN B-12) TABLET PO SCH (06:24)
[2021-04-12 07:51] VITALS: BP 118/59
[2021-04-12] MEDS: FOLIC ACID 1 MG TAB PO SCH (08:05)
[2021-04-12] MEDS: metFORMIN 500 MG (GLUCOPHAGE) TAB PO SCH ×2 (08:06→17:48)
[2021-04-12] MEDS: VITAMIN D3 25 MCG (1,000 UNITS) TABLET PO SCH (08:06)
[2021-04-12] MEDS: PANTOPRAZOLE 40 MG (PROTONIX) TAB PO SCH ×2 (08:06→20:37)
[2021-04-12] MEDS: MONTELUKAST 10 MG (SINGULAIR) TAB PO SCH (08:06)
[2021-04-12] MEDS: ASPIRIN E.C. 81 MG (ECOTRIN) TAB PO SCH ×2 (08:06→20:36)
[2021-04-12] MEDS: HYDROXYCHLOROQUINE 200 MG (PLAQUENIL) TAB PO SCH ×2 (08:06→17:48)
[2021-04-12] MEDS: SENNA W/DOCUSATE (SENOKOT S) TABLET PO SCH ×2 (08:07→20:36)
[2021-04-12] MEDS: DOCUSATE SODIUM 100 MG (COLACE) CAP PO SCH ×2 (08:07→20:36)
[2021-04-12] MEDS: eZETimibe 10 MG (ZETIA) TABLET PO SCH (08:07)
[2021-04-12] MEDS: IRON SUCROSE 200 MG/10 ML (VENOFER) VIAL IV SCH (08:07)
[2021-04-12] MEDS: polyethylene glycoL POWDER 17 GM (MIRALAX) PACK PO SCH ×2 (08:09→20:43)
--- NOTE | 2021-04-12 08:16 | Individualized Plan of Care ---
Individualized Plan of Care Rehab Nursing IPOC Order Admission Date Apr 10, 2021 at 15:35 Current Orders Orders Admission Arrival Bed Request (04/10/21 15:28) Cho 60g/M 1snack (16-2000 Vern) (04/10/21 Dinner) Admission Order(Inpt,Obs,Sdc) (04/10/21 16:59) Vital Signs: Per Unit Policy ( , (04/10/21 16:59) Nico Hose (04/10/21 16:59) Sequential Compression Device .admit (04/10/21 16:59) Technical Assistance Consultant-Inpt Rehab Con (04/10/21 16:59) Rehab Nursing Orders-Ipoc (04/10/21 16:59) Physical Therapy Rehab Orders (04/10/21 16:59) Occupational Therapy Rehab Ord (04/10/21 16:59) Speech Therapy Rehab Orders (04/10/21 16:59) Cbc With Automated Diff (04/11/21 06:00) Comprehensive Metabolic Panel (04/11/21 06:00) Precautions (Aru) (04/10/21 16:59) Weekly Weight WEEK (04/10/21 16:59) Rehab-Intensity Of Therapy (04/10/21 16:59) Initiate Admission Nursing Pro .admission (04/10/21 16:59) Alprazolam Tablet (Xanax Tablet) (04/10/21 17:00) Calcium Carbonate Chew Tablet (Antacid C (04/10/21 17:00) Diphenhydramine Tablet (Benadryl Tablet) (04/10/21 17:00) Docusate Sodium Capsule (Colace Capsule) (04/10/21 21:00) Docusate Sodium Capsule (Colace Capsule) (04/10/21 17:00) Bisacodyl Suppository (Dulcolax Supposit (04/10/21 17:00) Lactulose Oral Solution (Enulose Oral So (04/10/21 17:00) Na Phos/Na Biphos Enema (Fleet Enema Arun (04/10/21 17:00) Guaifenesin/Codeine Syrup (Robitussin Ac (04/10/21 17:00) Loperamide Tablet (Imodium Tablet) (04/10/21 17:00) Melatonin Tablet (Melatonin Tablet) (04/10/21 17:00) Polyethylene Glycol Powder Pkt (Miralax (04/10/21 21:00) Ondansetron Oral Dissolve Tab (Zofran (04/10/21 17:00) Senna S Tablet (Senokot S Tablet) (04/10/21 21:00) Initiate Admission Nursing Pro .admission (04/10/21 16:59) Albuterol Pre-Mix Nebs (Rt) (Proventil (04/10/21 17:15) Aspirin Enteric Coated Tablet (Ecotrin T (04/10/21 21:00) Cholecalciferol Capsule/Tablet (Vitamin (04/11/21 09:00) Ezetimibe Tablet (Zetia Tablet) (04/11/21 09:00) Folic Acid Tablet (Folic Acid Tablet) (04/11/21 09:00) Hydroxychloroquine Sulfate (Plaquenil) (04/10/21 18:00) Meloxicam Tablet (Mobic Tablet) (04/10/21 18:00) Metformin Tablet (Glucophage Tablet) (04/10/21 18:00) Methotrexate Pf Injection (Methotrexate (04/10/21 17:15) Montelukast Tablet (Singulair Tablet) (04/11/21 09:00) Pantoprazole Tablet (Protonix Tablet) (04/10/21 21:00) Pregabalin Capsule (Lyrica Capsule) (04/10/21 22:00) Ropinirole Tablet (Requip Tablet) (04/10/21 21:00) Rx-Tramadol Hcl (Rx-Ultram) (04/10/21 17:15) (Nf) Adalimumab (Humira(Cf) Pen) (04/10/21 17:15) (Nf) Amitriptyline Hcl (04/10/21 21:00) (Nf) Leucovorin Calcium (04/10/21 17:15) (Nf) Levothyroxine Sodium (Levothyroxine (04/11/21 09:00) (Nf) Zolpidem Tartrate (Ambien) (04/10/21 17:15) Acetaminophen Tablet (Tylenol Tablet) (04/10/21 17:15) Acetaminophen Tablet/Caplet (Tylenol T (04/10/21 17:15) Levothyroxine Tablet (Synthroid Tablet) (04/11/21 06:30) Amitriptyline Tablet (Elavil Tablet) (04/10/21 21:00) Tramadol Tablet (Ultram Tablet) (04/10/21 17:30) Zolpidem Tablet (Ambien Tablet) (04/10/21 17:30) Hand, 3 Views, Bilateral (04/11/21 08:00) Iron Test (Fe) (04/11/21 10:13) Vitamin B 12 (04/11/21 10:13) Follow-Up Appointment (04/11/21 14:49) Nursing Communication (Order) (04/11/21 14:55) Patient Visit (04/11/21 ) Pt Eval Moderate Complexity (04/11/21 ) Exercise Therap, Ea 15 Min (04/11/21 ) Functional Activities, Ea 15 (04/11/21 ) Patient Visit (04/11/21 ) Gait Training, Ea 15 Min (04/11/21 ) Exercise Therap, Ea 15 Min (04/11/21 ) Flu Quad High Dose [id number] (Fluzone Hi (04/11/21 15:45) Incentive Spirometry Initial (04/11/21 17:40) Incentive Spirometry (Nursing) Q2H (04/11/21 17:40) Iron Sucrose Injection (Venofer Injectio (04/12/21 09:00) Cyanocobalamin Injection (Vitamin B-12 I (04/12/21 06:00) Cyanocobalamin Tablet (Vitamin B-12 Tabl (04/12/21 07:00) Diclofenac 1% Gel (Voltaren 1% Gel) (04/12/21 09:15) Patient Visit (04/12/21 ) Gait Training, Ea 15 Min (04/12/21 ) Exercise Therap, Ea 15 Min (04/12/21 ) Ex Neuromuscular, Ea 15 Min (04/12/21 ) Rehab Nursing Orders: Ongoing Assess. of Cognitive Status, Ongoing Assess. of Function Status, Bladder Management, Bladder Scan, Bladder Training, Bowel Management, Bowel Training, Disease Management & Educaiton, DVT Prophylaxis, Fall Prevention, Fluid/Electrolyte/Nutrition Mgmt, Infection Prevention, Medication Management & Education, Management of Risks & Complications, Management of Skin Intergrity, Nutrition Management, Pain Management, Patient/Family Support, Safety Management Intensity of Therapy to be met Patient to be seen: Min.3h per day/5 of 7d PT IPOC Problem List: Activity Tolerance, Functional Strength, Safety, Balance, Gait, Transfer, Bed Mobility, ROM Treatment Plan: Continue Plan of Care Bed Mobility, Education, Functional Activity Juan, Functional Strength, Group Therapy, Gait, Safety, Therapeutic Exercise, Transfers Treatment Duration: May 02, 2021 Frequency: At least 5 of 7 days/Wk (IRF) Estimated Hrs Per Day: 1.5 hours per day OT IPOC Problems: Decreased Activ Tolerance, Decreased UE Strength, Impaired Coordination, Impaired Funct Balance, Impaired I ADL's, Impaired Self-Care Skills OT Treatment, Training and Edu: Yes Plan of Care: ADL Retraining, Functional Mobility, Group Exercise/Act as Ind, UE Funct Exercise/Act Treatment Duration: May 03, 2021 Frequency: At least 5 of 7 days/Wk (IRF) Estimated Hrs Per Day: 1.[address] IPOC Speech Therapy Treatment Plan: Discontinue ST Treatment Duration: Apr 11, 2021 Frequency: Modified Program (IRF) Estimated Hrs Per Day: Other Technical Assistance Consultant/Case Mgmt Technical Assistance Consultant/Case Managemen: Discharge Planning Dietitian/Cigar Packing Examiner Dietitian/Cigar Packing Examiner to monitor nutritional status and make changes and/or recommendations as needed and work with speech pathology on dietary upgrades as the occur. Physician IPOC Medical Issues being managed closely and that require the 24 hour availability of a physician: Recent hip fracture with severe rheumatoid osteoarthritis causing significant debility due to hand dysfunction with postoperatively weakness from anemia requiring iron infusions will require close monitoring Medical Issues: Bowel/Bladder Function, DVT Prophylaxis, Falls Precautions, Fluid/Electrolyte/Nutrition Balance, Infection Protection, Pain Management, Wou nd Care Brief Synthesis of Preadmission Screen, Post-Admission Evaluation, and Therapy Evaluations: PT and OT will focus on regaining function with use of assistive devices in order to regain independent function of ADLs in order to return back to [facility] living Medical Prognosis: Good Anticipated Length of Stay: 10 days LU VARGAS DO Apr 12, 2021 08:16
--- NOTE | 2021-04-12 08:16 | PM&R Progress Note ---
Subjective HPI/CC On Admission Date Seen by Provider: Apr 12, 2021 Time Seen by Provider: 05:45 Subjective/Events-last exam 04/12/2021: Patient doing well Diclofenac gel will be used on hands Updated her on x-ray results and Dr. Davis evaluation for thumbs not to be dislocated just RA severe changes he will see her as an outpatient Hemoglobin will be checked periodically to prevent phlebotomy Ordered iron 04/11/2021: Patient doing pretty well Hemoglobin 7.9 Oxygen at night used Hand x-rays reviewed with Dr. Davis who will see her as an outpatient Pain is pretty significant since she is on her third day status post hip fracture repair Checking iron Review of Systems Musculoskeletal: arm pain, leg pain Objective Exam Vital Signs Vital Signs Date Time Temp Pulse Resp B/P (MAP) Pulse Ox O2 Delivery O2 Flow Rate FiO2 04/12/21 08:41 Room Air 04/12/21 07:51 36.6 88 16 118/59 (78) 92 04/11/21 21:29 2.00 Capillary Refill : General Appearance: No Apparent Distress, WD/WN, Chronically ill HEENT: PERRL/EOMI, Normal ENT Inspection, Pharynx Normal Neck: Full Range of Motion, Normal Inspection, Non Tender, Supple, Carotid Bruit Respiratory: Chest Non Tender, Lungs Clear, Normal Breath Sounds, No Accessory Muscle Use, No Respiratory Distress Cardiovascular: Regular Rate, Rhythm, No Edema, No Gallop, No JVD, No Murmur Back: Normal Inspection, No CVA Tenderness, No Vertebral Tenderness Extremity: Normal Capillary Refill, Normal Inspection, Normal Range of Motion (Except left leg), Non Tender, No Calf Tenderness Neurologic/Psychiatric: Alert, Oriented x3, No Motor/Sensory Deficits, Normal Mood/Affect, Abnormal Gait, Motor Weakness (Generalized) Skin: Pallor (Patient states she has been anemic ) Results/Procedures Lab Patient resulted labs reviewed. FIM Transfers Therapy Code Descriptions/Definitions Functional [place] Measure: 0=Not Assessed/NA 4=Minimal Assistance 1=Total Assistance 5=Supervision or Setup 2=Maximal Assistance 6=Modified [place] 3=Moderate Assistance 7=Complete IndependenceSCALE: Activities may be completed with or without assistive devices. 6-Drzrjscizx-tnzxcbi completes the activity by him/herself with no assistance from a helper. 5-Set-up or Clean-up Assistance-helper sets up or cleans up; patient completes activity. [place] assists only prior to or following the activity. 4-Supervision or Touching Assistance-helper provides verbal cues and/or touching/steadying and/or contact guard assistance as patient completes activity. Assistance may be provided throughout the activity or intermittently. 3-Partial/Moderate Assistance-helper does LESS THAN HALF the effort. [place] lifts, holds or supports trunk or limbs, but provides less than half the effort. 2-Substantial/Maximal Assistance-helper does MORE THAN HALF the effort. [place] lifts or holds trunk or limbs and provides more than half the effort. 5-Adexalwvq-grrzyt does ALL the effort. Patient does none of the effort to complete the activity. Or, the assistance of 2 or more helpers is required for the patient to complete the activity. If activity was not attempted, code reason: 7-Patient Refused. 9-Not Applicable-not attempted and the patient did not perform the activity before the current illness, exacerbation or injury. 10-Not Attempted due to Environmental Limitations-(lack of equipment, weather restraints, etc.). 88-Not Attempted due to Medical Conditions or Safety Concerns. Roll Left to Right (QC): 4 Sit to Lying (QC): 4 Sit to Stand (QC): 4 Chair/Pha-ky-Ihtfm Xfer(QC): 4 Car Transfer (QC): 3 Gait Training Does the Patient Walk?: Yes Distance: 75 feet x 2 Walk 10 feet (QC): 4 Walk 50 ft with 2 Turns(QC): 4 Walk 150 ft (QC): 4 Walking 10ft/uneven surface-QC: 4 Gait Persons Needed: 1 Gait Assistive Device: FWW Wheelchair Training Does the Pt Use a Wheelchair?: No Wheel 50 ft with 2 turns (QC): 9 Wheel 150 ft (QC): 9 Stair Training #of Steps: 1 1 Step (curb) (QC): 4 4 Steps (QC): 88 12 Steps (QC): 88 Balance Picking up an Object (QC): 88 ADL-Treatment Eating (QC): 5 (set up assistance. Pt able to use universal cuff to eat meals. Requires assistance opening containers and cutting food.) Oral Hygiene (QC): 4 (CGA in standing. Pt able to put toothpaste onto toothbrush and brush teeth. pt required assistance turning off electric toothbrush. ) Shower/Bathe Self (QC): 3 (Assist LLE lower legs/feet. Pt able to wash all other parts, CGA in stand to wash buttocks.) Upper Body Dressing (QC): 5 (set up ) Lower Body Dressing (QC): 3 (Assistance doffing/donning LLE, pt able to manage RLE and pant hike.) On/Off Footwear (QC): 3 (Mod A. Pt able to complete RLE, assistance LLE) Toileting Hygiene (QC): 4 (Pt able to complete hygiene and clothing management, CGA in stand for balance.) Toilet Transfer (QC): 4 (CGA on/off BSC over toilet) Assessment/Plan Assessment and Plan Assess & Plan/Chief Complaint Assessment: Left hip fracture status post repair by Dr. 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 DAVIS as an outpatient Plan: Inpatient rehab protocol Supportive care Monitor pain Bowel regimen 04/11/2021: Monitor hemoglobin Check iron level Check B12 level 04/12/2021: Iron infusions Hemoglobin checks periodically (1) Hip fracture LU VARGAS DO Apr 12, 2021 08:16
--- NOTE | 2021-04-12 10:58 | Physical Therapy Daily Note ---
PT Daily Note-Current Subjective Pt in bed and agrees to tx. Pt states pain in L hip 08/15, states post tx it's a little sore and only a slight increase in pain. Pain Numeric Pain Scale: 2 Location: Right Mental Status Patient Orientation: Person, Place, Time, Situation Transfers SCALE: Activities may be completed with or without assistive devices. 0-Vhxjecliwj-zkupmff completes the activity by him/herself with no assistance from a helper. 5-Set-up or Clean-up Assistance-helper sets up or cleans up; patient completes activity. [place] assists only prior to or following the activity. 4-Supervision or Touching Assistance-helper provides verbal cues and/or touching/steadying and/or contact guard assistance as patient completes activity. Assistance may be provided throughout the activity or intermittently. 3-Partial/Moderate Assistance-helper does LESS THAN HALF the effort. [place] lifts, holds or supports trunk or limbs, but provides less than half the effort. 2-Substantial/Maximal Assistance-helper does MORE THAN HALF the effort. [place] lifts or holds trunk or limbs and provides more than half the effort. 3-Hahvlsjvj-pitmik does ALL the effort. Patient does none of the effort to complete the activity. Or, the assistance of 2 or more helpers is required for the patient to complete the activity. If activity was not attempted, code reason: 7-Patient Refused. 9-Not Applicable-not attempted and the patient did not perform the activity before the current illness, exacerbation or injury. 10-Not Attempted due to Environmental Limitations-(lack of equipment, weather restraints, etc.). 88-Not Attempted due to Medical Conditions or Safety Concerns. Sit to Lying (QC): 5 Lying to Sitting/Side of Bed(Q: 5 Sit to Stand (QC): 3 CGA/Lance for sit to stand, dependent on height of surface Weight Bearing Left Lower Extremity: Left Weight Bearing/Tolerated Gait Training Does the Patient Walk?: Yes Distance: 250', 150' Walk 10 feet (QC): 4 Walk 50 ft with 2 Turns(QC): 4 Walk 150 ft (QC): 4 Gait Persons Needed: 1 Gait Assistive Device: Walker Platform Pt amb w/ steady gait, slight antalgic tendency d/t L sided pain Exercises NuStep Minutes: 15 NuStep Workload: 4 Treatments Pt supine to sit to stand from bed, Lance sit to stand and amb to bathroom. Pt able to doff/don pants, clean self, and wash hands CGA. Pt amb 150' on ARU to therapy gym and completes NuStep. Pt then completes dynamic standing balance activity, tossing 13 bridges bags x2. First set pt is supported w/ L UE and CGA, second set pt is unsupported from UE and CGA. Pt then amb 250' on ARU and returns to room. Pt EOB to supine SBA and is left with all needs met, call light in hand. Assessment Current Status: Good Progress Pt motivated to improve and go home. SBA/CGA for all transfers and amb, but CGA/Lance for sit to stand dependent on height of surface. PT Short Term Goals Short Term Goals Time Frame: Apr 18, 2021 Roll Left & Right: 6 Sit to lyin Lying to sitting on side of be: 4 Sit to stand: 4 Walk 10 feet: 4 Walk 50 feet with two turns: 4 Walk 150 feet: 4 PT Alf Goals Alf Goals PT Delic[employer]essen Slicer Goals Time Frame: May 02, 2021 Roll Left & Right (QC): 6 Sit to Lying (QC): 6 Lying-Sitting on Side/Bed(QC): 6 Sit to Stand (QC): 6 Chair/Kjl-ob-Carse Xfer(QC): 6 Toilet Transfer (QC): 6 Car Transfer (QC): 6 Does the Patient Walk: Yes Walk 10 feet (QC): 6 Walk 50ft with 2 Turns (QC): 6 Walk 150 ft (QC): 6 Walking 10ft on Uneven Surface: 6 1 Step (curb) (QC): 4 4 Steps (QC): 4 12 Steps (QC): 88 Picking up an Object (QC): 88 Wheel 50 feet with 2 turns (QC: 9 Wheel 150 feet: 9 PT Plan Treatment/Plan Treatment Plan: Continue Plan of Care Treatment Plan: Bed Mobility, Education, Functional Activity Juan, Functional Strength, Group Therapy, Gait, Safety, Therapeutic Exercise, Transfers Treatment Duration: May 02, 2021 Frequency: At least 5 of 7 days/Wk (IRF) Estimated Hrs Per Day: 1.5 hours per day Patient and/or Family Agrees t: Yes Time/GCodes Time In: 1000 Time Out: 1100 Total Billed Treatment Time: 60 Total Billed Treatment 1, GT x2, EX, NM AVERY,[facility] SENIOR MARKETING SPECIALIST Apr 12, 2021 10:58
--- NOTE | 2021-04-12 12:40 | Occupational Ther Daily Note ---
OT Current Status-Daily Note Subjective Pt seen in room, up in bed, agreeable to OT. No specific pain rated but she described pain in hands with use, R hand pain more acute than L. Appearance Alert, cooperative ADL-Treatment Pt described adaptations that she has made in her ADLs and IADLs but said things have been more difficult recently due to relatively new rupture of tendons R thumb. She does have some distal thumb flex/ext but is limited in abd/add and flex/ext at CMC joint. Discussed many optional adaptations and equipment that may be helpful, including seat belt extensions, bidet for toileting, walk-in bathtub with door. Pt concerned about being able to get in/out of tractor once she goes home. Verbalized loss of many ADLs and IADLs due to RA and other medical conditions, including gardening and lele, cooking with certain utensils, difficulty walking. She has been pleased with use of universal cuff for holding silverware. Pt left up in bed, all needs met. Therapy Code Descriptions/Definitions Functional [place] Measure: 0=Not Assessed/NA 4=Minimal Assistance 1=Total Assistance 5=Supervision or Setup 2=Maximal Assistance 6=Modified [place] 3=Moderate Assistance 7=Complete IndependenceSCALE: Activities may be completed with or without assistive devices. 3-Usmgmqbsgm-gsiffqp completes the activity by him/herself with no assistance from a helper. 5-Set-up or Clean-up Assistance-helper sets up or cleans up; patient completes activity. [place] assists only prior to or following the activity. 4-Supervision or Touching Assistance-helper provides verbal cues and/or touchin g/steadying and/or contact guard assistance as patient completes activity. Assistance may be provided throughout the activity or intermittently. 3-Partial/Moderate Assistance-helper does LESS THAN HALF the effort. [place] lifts, holds or supports trunk or limbs, but provides less than half the effort. 2-Substantial/Maximal Assistance-helper does MORE THAN HALF the effort. [place] lifts or holds trunk or limbs and provides more than half the effort. 7-Mmkivcnax-zderre does ALL the effort. Patient does none of the effort to complete the activity. Or, the assistance of 2 or more helpers is required for the patient to complete the activity. If activity was not attempted, code reason: 7-Patient Refused. 9-Not Applicable-not attempted and the patient did not perform the activity before the current illness, exacerbation or injury. 10-Not Attempted due to Environmental Limitations-(lack of equipment, weather restraints, etc.). 88-Not Attempted due to Medical Conditions or Safety Concerns. Education OT Patient Education: Modified ADL techniques, Purpose of tx/functional activities, Use of adapted equipment Teaching Recipient: Patient Teaching Methods: Discussion Response to Teaching: Verbalize Understanding OT Short Term Goals Short Term Goals Time Frame: Apr 19, 2021 Toileting hygiene: 4 Shower/bathe self: 4 Lower body dressin Putting on/taking off footwear: 4 OT Jail Goals Jail Goals Time Frame: May 03, 2021 Eating (QC): 6 Oral Hygiene (QC): 6 Toileting Hygiene (QC): 6 Shower/Bathe Self (QC): 6 Upper Body Dressing (QC): 6 Lower Body Dressing (QC): 6 On/Off Footwear (QC): 6 Additional Goals: 1-Demonstrate ADL Tasks, 2-Verbalize Understanding, 3- ImproveStrength/Juan 1=Demonstrate adherence to instructed precautions during ADL tasks. 2=Patient will verbalize/demonstrate understanding of assistive misty mitul/modifications for ADL. 3=Patient will improve strength/tolerance for activity to enable patient to perform ADL's. OT Education/Plan Discharge Recommendations Plan/Recommendations: Continue POC Treatment Plan/Plan of Care Patient would benefit from OT for education, treatment and training to promote independence in ADL's, mobility, safety and/or upper extremity function for ADL's. Plan of Care: ADL Retraining, Functional Mobility, Group Exercise/Act as Ind, UE Funct Exercise/Act Treatment Duration: May 03, 2021 Frequency: At least 5 of 7 days/Wk (IRF) Estimated Hrs Per Day: 1.5 hours per day Rehab Potential: Fair Time/GCodes Start Time: 11:00 Stop Time: 12:00 Total Time Billed (hr/min): 60 Billed Treatment Time visit, 60 minutes ADL RAFAEL MUELLER OT Apr 12, 2021 12:40
--- NOTE | 2021-04-12 15:12 | Physical Therapy Daily Note ---
PT Daily Note-Current Subjective Pt in bed upon arrival and agrees to tx. Pt states pain is low in L LE, doesn't rate out of 10. Mental Status Patient Orientation: Person, Place, Situation Transfers SCALE: Activities may be completed with or without assistive devices. 6-Jywhqhaong-eyldvzw completes the activity by him/herself with no assistance from a helper. 5-Set-up or Clean-up Assistance-helper sets up or cleans up; patient completes activity. [place] assists only prior to or following the activity. 4-Supervision or Touching Assistance-helper provides verbal cues and/or touching/steadying and/or contact guard assistance as patient completes activity. Assistance may be provided throughout the activity or intermittently. 3-Partial/Moderate Assistance-helper does LESS THAN HALF the effort. [place] lifts, holds or supports trunk or limbs, but provides less than half the effort. 2-Substantial/Maximal Assistance-helper does MORE THAN HALF the effort. [place] lifts or holds trunk or limbs and provides more than half the effort. 0-Dwzggavni-cfdjmv does ALL the effort. Patient does none of the effort to complete the activity. Or, the assistance of 2 or more helpers is required for the patient to complete the activity. If activity was not attempted, code reason: 7-Patient Refused. 9-Not Applicable-not attempted and the patient did not perform the activity before the current illness, exacerbation or injury. 10-Not Attempted due to Environmental Limitations-(lack of equipment, weather restraints, etc.). 88-Not Attempted due to Medical Conditions or Safety Concerns. Sit to Lying (QC): 4 Lying to Sitting/Side of Bed(Q: 4 Sit to Stand (QC): 3 sit to stand CGA/Lance dependent on height of surface and pt fatigue Weight Bearing Left Lower Extremity: Left Weight Bearing/Tolerated Gait Training Does the Patient Walk?: Yes Distance: 200' x2 Walk 10 feet (QC): 4 Walk 50 ft with 2 Turns(QC): 4 Walk 150 ft (QC): 4 Gait Assistive Device: Walker Platform Exercises Supine Ex: Ankle pumps Seated Therapy Exercises: Ankle pumps, Sit to stand, Long arc quads, Hip flexion Seated Reps: 10 Hip flexion AAROM on L LE Treatments Pt supine to sit to stand Lance and amb 200' to therapy gym. Pt completes seated ex and amb back to room. Pt sit to supine CGA and remains in bed, all needs met and call light in hand. Assessment Current Status: Good Progress Pt overall increasing strength, endurance, and mobility PT Short Term Goals Short Term Goals Time Frame: Apr 18, 2021 Roll Left & Right: 6 Sit to lyin Lying to sitting on side of be: 4 Sit to stand: 4 Walk 10 feet: 4 Walk 50 feet with two turns: 4 Walk 150 feet: 4 PT Fpc Goals Fpc Goals PT Fpc Goals Time Frame: May 02, 2021 Roll Left & Right (QC): 6 Sit to Lying (QC): 6 Lying-Sitting on Side/Bed(QC): 6 Sit to Stand (QC): 6 Chair/Uez-kv-Opdhq Xfer(QC): 6 Toilet Transfer (QC): 6 Car Transfer (QC): 6 Does the Patient Walk: Yes Walk 10 feet (QC): 6 Walk 50ft with 2 Turns (QC): 6 Walk 150 ft (QC): 6 Walking 10ft on Uneven Surface: 6 1 Step (curb) (QC): 4 4 Steps (QC): 4 12 Steps (QC): 88 Picking up an Object (QC): 88 Wheel 50 feet with 2 turns (QC: 9 Wheel 150 feet: 9 PT Plan Treatment/Plan Treatment Plan: Continue Plan of Care Treatment Plan: Bed Mobility, Education, Functional Activity Juan, Functional Strength, Group Therapy, Gait, Safety, Therapeutic Exercise, Transfers Treatment Duration: May 02, 2021 Frequency: At least 5 of 7 days/Wk (IRF) Estimated Hrs Per Day: 1.5 hours per day Patient and/or Family Agrees t: Yes Time/GCodes Time In: 1430 Time Out: 1500 Total Billed Treatment Time: 30 Total Billed Treatment 1, GT, Ex HESHAM AVERY CLINICAL SPECIALIST Apr 12, 2021 15:12
--- NOTE | 2021-04-12 15:42 | Occupational Ther Daily Note ---
OT Current Status-Daily Note Subjective Pt seen in room, up in bed, agreeable to OT. No pain mentioned but pain behaviors observed with some UE movements. Appearance Alert, cooperative ADL-Treatment Pt able to get to EOB with difficulty but not therapist assistance. Sat EOB without loss of balance. Able to take shirt off and don clean shirt with setup. Some discomfort R hand when reaching around to her back. Stood min assist at mynor tform walker but then able to maintain standing with SBA, with bed elevated. Able to push pants down, then sit to kick them off herself. Able to get feet into underwear and slacks with SBA, with more difficulty with underwear due to its smaller size. Min assist sit to stand, then able to pull pants up over bottom and tie string on pants waist, using platform walker. Pt education use of sock aid and she was able to don first sock. She needed a little help palming second sock onto device but was able to get sock over foot. Will work a little easier with not new socks. She was able to get her legs back into bed without help and was left up in bed, all needs met. Therapy Code Descriptions/Definitions Functional [place] Measure: 0=Not Assessed/NA 4=Minimal Assistance 1=Total Assistance 5=Supervision or Setup 2=Maximal Assistance 6=Modified [place] 3=Moderate Assistance 7=Complete IndependenceSCALE: Activities may be completed with or without assistive devices. 0-Smqrqnaaoj-nithurd completes the activity by him/herself with no assistance from a helper. 5-Set-up or Clean-up Assistance-helper sets up or cleans up; patient completes activity. [place] assists only prior to or following the activity. 4-Supervision or Touching Assistance-helper provides verbal cues and/or touching/steadying and/or contact guard assistance as patient completes activity. Assistance may be provided throughout the activity or intermittently. 3-Partial/Moderate Assistance-helper does LESS THAN HALF the effort. [place] lifts, holds or supports trunk or limbs, but provides less than half the effort. 2-Substantial/Maximal Assistance-helper does MORE THAN HALF the effort. [place] l ifts or holds trunk or limbs and provides more than half the effort. 2-Otauzjmyo-xnapgn does ALL the effort. Patient does none of the effort to complete the activity. Or, the assistance of 2 or more helpers is required for the patient to complete the activity. If activity was not attempted, code reason: 7-Patient Refused. 9-Not Applicable-not attempted and the patient did not perform the activity before the current illness, exacerbation or injury. 10-Not Attempted due to Environmental Limitations-(lack of equipment, weather restraints, etc.). 88-Not Attempted due to Medical Conditions or Safety Concerns. Education OT Patient Education: Modified ADL techniques, Purpose of tx/functional activities, Use of adapted equipment Teaching Recipient: Patient Teaching Methods: Demonstration, Discussion Response to Teaching: Verbalize Understanding, Return Demonstration, Reinforcement Needed OT Short Term Goals Short Term Goals Time Frame: Apr 19, 2021 Toileting hygiene: 4 Shower/bathe self: 4 Lower body dressin Putting on/taking off footwear: 4 OT Gold Wheel Blocker And Polisher Goals Halfway Goals Time Frame: May 03, 2021 Eating (QC): 6 Oral Hygiene (QC): 6 Toileting Hygiene (QC): 6 Shower/Bathe Self (QC): 6 Upper Body Dressing (QC): 6 Lower Body Dressing (QC): 6 On/Off Footwear (QC): 6 Additional Goals: 1-Demonstrate ADL Tasks, 2-Verbalize Understanding, 3- ImproveStrength/Juan 1=Demonstrate adherence to instructed precautions during ADL tasks. 2=Patient will verbalize/demonstrate understanding of assistive devices/modifications for ADL. 3=Patient will improve strength/tolerance for activity to enable patient to perform ADL's. OT Education/Plan Discharge Recommendations Plan/Recommendations: Continue POC Treatment Plan/Plan of Care Patient would benefit from OT for education, treatment and training to promote independence in ADL's, mobility, safety and/or upper extremity function for ADL's. Plan of Care: ADL Retraining, Functional Mobility, Group Exercise/Act as Ind, UE Funct Exercise/Act Treatment Duration: May 03, 2021 Frequency: At least 5 of 7 days/Wk (IRF) Estimated Hrs Per Day: 1.5 hours per day Rehab Potential: Fair Time/GCodes Start Time: 14:00 Stop Time: 14:30 Total Time Billed (hr/min): 30 Billed Treatment Time visit, 30 minutes ADL RAFAEL MUELLER OT Apr 12, 2021 15:42
[2021-04-12 19:56] VITALS: BP 142/67
[2021-04-12] MEDS: ZOLPIDEM 5 MG (AMBIEN) TAB PO PRN (20:37)
[2021-04-12] MEDS: rOPINIRole 0.25 MG (REQUIP) TAB PO SCH (20:42)
[2021-04-12] MEDS: AMITRIPTYLINE 50 MG (ELAVIL) TAB PO SCH (20:44)
--- NOTE | 2021-04-13 05:57 | PM&R Progress Note ---
Subjective HPI/CC On Admission Date Seen by Provider: Apr 13, 2021 Time Seen by Provider: 05:50 Subjective/Events-last exam 04/13/2021: Patient doing well Updated her on the iron infusion and B12 injection Talked about hand surgeon consult Denies any new issues 04/12/2021: Patient doing well Diclofenac gel will be used on hands Updated her on x-ray results and Dr. aDvis evaluation for thumbs not to be dislocated just RA severe changes he will see her as an outpatient Hemoglobin will be checked periodically to prevent phlebotomy Ordered iron 04/11/2021: Patient doing pretty well Hemoglobin 7.9 Oxygen at night used Hand x-rays reviewed with Dr. Davis who will see her as an outpatient Pain is pretty significant since she is on her third day status post hip fracture repair Checking iron Review of Systems General: Fatigue, Malaise Musculoskeletal: leg pain Objective Exam Vital Signs Vital Signs Date Time Temp Pulse Resp B/P (MAP) Pulse Ox O2 Delivery O2 Flow Rate FiO2 04/13/21 08:00 Room Air 04/13/21 07:30 36.6 82 20 110/64 (79) 93 04/11/21 21:29 2.00 Capillary Refill : Less Than 3 Seconds General Appearance: No Apparent Distress, WD/WN, Chronically ill HEENT: PERRL/EOMI, Normal ENT Inspection, Pharynx Normal Neck: Full Range of Motion, Normal Inspection, Non Tender, Supple, Carotid Bruit Respiratory: Chest Non Tender, Lungs Clear, Normal Breath Sounds, No Accessory Muscle Use, No Respiratory Distress Cardiovascular: Regular Rate, Rhythm, No Edema, No Gallop, No JVD, No Murmur Back: Normal Inspection, No CVA Tenderness, No Vertebral Tenderness Extremity: Normal Capillary Refill, Normal Inspection, Normal Range of Motion (Except left leg), Non Tender, No Calf Tenderness Neurologic/Psychiatric: Alert, Oriented x3, No Motor/Sensory Deficits, Normal Mood/Affect, Abnormal Gait, Motor Weakness (Generalized) Skin: Pallor (Patient states she has been anemic ) Results/Procedures Lab Patient resulted labs reviewed. FIM Transfers Therapy Code Descriptions/Definitions Functional [place] Measure: 0=Not Assessed/NA 4=Minimal Assistance 1=Total Assistance 5=Supervision or Setup 2=Maximal Assistance 6=Modified [place] 3=Moderate Assistance 7=Complete IndependenceSCALE: Activities may be completed with or without assistive devices. 1-Sqadpmnbtn-vypoviu completes the activity by him/herself with no assistance from a helper. 5-Set-up or Clean-up Assistance-helper sets up or cleans up; patient completes activity. [place] assists only prior to or following the activity. 4-Supervision or Touching Assistance-helper provides verbal cues and/or touching/steadying and/or contact guard assistance as patient completes activity. Assistance may be provided throughout the activity or intermittently. 3-Partial/Moderate Assistance-helper does LESS THAN HALF the effort. [place] lifts, holds or supports trunk or limbs, but provides less than half the effort. 2-Substantial/Maximal Assistance-helper does MORE THAN HALF the effort. [place] lifts or holds trunk or limbs and provides more than half the effort. 1-Coofxqwpk-jxsolb does ALL the effort. Patient does none of the effort to complete the activity. Or, the assistance of 2 or more helpers is required for the patient to complete the activity. If activity was not attempted, code reason: 7-Patient Refused. 9-Not Applicable-not attempted and the patient did not perform the activity b efore the current illness, exacerbation or injury. 10-Not Attempted due to Environmental Limitations-(lack of equipment, weather restraints, etc.). 88-Not Attempted due to Medical Conditions or Safety Concerns. Roll Left to Right (QC): 4 Sit to Lying (QC): 4 Sit to Stand (QC): 3 Chair/Zbz-cr-Fmigf Xfer(QC): 4 Car Transfer (QC): 3 Gait Training Does the Patient Walk?: Yes Distance: 200' x2 Walk 10 feet (QC): 4 Walk 50 ft with 2 Turns(QC): 4 Walk 150 ft (QC): 4 Walking 10ft/uneven surface-QC: 4 Gait Persons Needed: 1 Gait Assistive Device: Walker Platform Wheelchair Training Does the Pt Use a Wheelchair?: No Wheel 50 ft with 2 turns (QC): 9 Wheel 150 ft (QC): 9 Stair Training #of Steps: 1 1 Step (curb) (QC): 4 4 Steps (QC): 88 12 Steps (QC): 88 Balance Picking up an Object (QC): 88 ADL-Treatment Eating (QC): 5 (set up assistance. Pt able to use universal cuff to eat meals. Requires assistance opening containers and cutting food.) Oral Hygiene (QC): 4 (CGA in standing. Pt able to put toothpaste onto toothbrush and brush teeth. pt required assistance turning off electric toothbrush. ) Shower/Bathe Self (QC): 3 (Assist LLE lower legs/feet. Pt able to wash all other parts, CGA in stand to wash buttocks.) Upper Body Dressing (QC): 5 (set up ) Lower Body Dressing (QC): 3 (Assistance doffing/donning LLE, pt able to manage RLE and pant hike.) On/Off Footwear (QC): 3 (Mod A. Pt able to complete RLE, assistance LLE) Toileting Hygiene (QC): 4 (Pt able to complete hygiene and clothing management, CGA in stand for balance.) Toilet Transfer (QC): 4 (CGA on/off BSC over toilet) Assessment/Plan Assessment and Plan Assess & Plan/Chief Complaint Assessment: Left hip fracture status post repair by Dr. 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 DAVIS as an outpatient Plan: Inpatient rehab protocol Supportive care Monitor pain Bowel regimen 04/11/2021: Monitor hemoglobin Check iron level Check B12 level 04/12/2021: Iron infusions Hemoglobin checks periodically 04/13/2021: Continue iron infusions Pain control Monitor closely (1) Hip fracture LU VARGAS DO Apr 13, 2021 05:57
[2021-04-13] MEDS: PREGABALIN 75 MG (LYRICA) CAP PO SCH ×3 (06:13→20:28)
[2021-04-13] MEDS: CATHETER FLUSH 10 ML SYR IV SCH ×3 (06:13→20:31)
[2021-04-13] MEDS: LEVOTHYROXINE 75 MCG (LEVOTHROID) TABLET PO SCH (06:13)
[2021-04-13] MEDS: CYANOCOBALAMIN 1,000 MCG (VITAMIN B-12) TABLET PO SCH (06:13)
[2021-04-13] MEDS: MELOXICAM 7.5 MG (MOBIC) TABLET PO SCH ×2 (06:13→17:34)
[2021-04-13 07:30] VITALS: BP 110/64
[2021-04-13] MEDS: HYDROXYCHLOROQUINE 200 MG (PLAQUENIL) TAB PO SCH ×2 (09:27→17:34)
[2021-04-13] MEDS: metFORMIN 500 MG (GLUCOPHAGE) TAB PO SCH ×2 (09:27→17:34)
[2021-04-13] MEDS: MONTELUKAST 10 MG (SINGULAIR) TAB PO SCH (09:27)
[2021-04-13] MEDS: ASPIRIN E.C. 81 MG (ECOTRIN) TAB PO SCH ×2 (09:27→20:28)
[2021-04-13] MEDS: FOLIC ACID 1 MG TAB PO SCH (09:27)
[2021-04-13] MEDS: SENNA W/DOCUSATE (SENOKOT S) TABLET PO SCH ×2 (09:27→20:28)
[2021-04-13] MEDS: eZETimibe 10 MG (ZETIA) TABLET PO SCH (09:27)
[2021-04-13] MEDS: VITAMIN D3 25 MCG (1,000 UNITS) TABLET PO SCH (09:27)
[2021-04-13] MEDS: DOCUSATE SODIUM 100 MG (COLACE) CAP PO SCH ×2 (09:27→20:29)
--- NOTE | 2021-04-13 09:27 | Physical Therapy Daily Note ---
PT Daily Note-Current Subjective Pt says she slept well. Pain rated 3/10 (L) LE. Mental Status Patient Orientation: Person, Place, Situation Transfers SCALE: Activities may be completed with or without assistive devices. 7-Zsgqshgtzn-uyepctj completes the activity by him/herself with no assistance from a helper. 5-Set-up or Clean-up Assistance-helper sets up or cleans up; patient completes activity. [place] assists only prior to or following the activity. 4-Supervision or Touching Assistance-helper provides verbal cues and/or to uching/steadying and/or contact guard assistance as patient completes activity. Assistance may be provided throughout the activity or intermittently. 3-Partial/Moderate Assistance-helper does LESS THAN HALF the effort. [place] lifts, holds or supports trunk or limbs, but provides less than half the effort. 2-Substantial/Maximal Assistance-helper does MORE THAN HALF the effort. [place] lifts or holds trunk or limbs and provides more than half the effort. 0-Eufudczzo-kajbtd does ALL the effort. Patient does none of the effort to complete the activity. Or, the assistance of 2 or more helpers is required for the patient to complete the activity. If activity was not attempted, code reason: 7-Patient Refused. 9-Not Applicable-not attempted and the patient did not perform the activity before the current illness, exacerbation or injury. 10-Not Attempted due to Environmental Limitations-(lack of equipment, weather restraints, etc.). 88-Not Attempted due to Medical Conditions or Safety Concerns. Weight Bearing Left Lower Extremity: Left Weight Bearing/Tolerated Exercises Supine Ex: Ankle pumps, Quad Set, Short Arc Quads Supine Reps: 20 Treatments Pt performed (R) LE heel slide and hip abd x 20 Assessment Current Status: Good Progress [place] well. Pt resting in bed in care of OT. PT Short Term Goals Short Term Goals Time Frame: Apr 18, 2021 Roll Left & Right: 6 Sit to lyin Lying to sitting on side of be: 4 Sit to stand: 4 Walk 10 feet: 4 Walk 50 feet with two turns: 4 Walk 150 feet: 4 PT Skilled Nursing Goals [place] Operator Goals PT Skilled Nursing Goals Time Frame: May 02, 2021 Roll Left & Right (QC): 6 Sit to Lying (QC): 6 Lying-Sitting on Side/Bed(QC): 6 Sit to Stand (QC): 6 Chair/Qgp-fr-Rypoy Xfer(QC): 6 Toilet Transfer (QC): 6 Car Transfer (QC): 6 Does the Patient Walk: Yes Walk 10 feet (QC): 6 Walk 50ft with 2 Turns (QC): 6 Walk 150 ft (QC): 6 Walking 10ft on Uneven Surface: 6 1 Step (curb) (QC): 4 4 Steps (QC): 4 12 Steps (QC): 88 Picking up an Object (QC): 88 Wheel 50 feet with 2 turns (QC: 9 Wheel 150 feet: 9 PT Plan Treatment/Plan Treatment Plan: Continue Plan of Care Treatment Plan: Bed Mobility, Education, Functional Activity Juan, Functional Strength, Group Therapy, Gait, Safety, Therapeutic Exercise, Transfers Treatment Duration: May 02, 2021 Frequency: At least 5 of 7 days/Wk (IRF) Estimated Hrs Per Day: 1.5 hours per day Patient and/or Family Agrees t: Yes Time/GCodes Time In: 815 Time Out: 830 Total Billed Treatment Time: 15 Total Billed Treatment 1, ther ex 15' SIOBHAN PEÑA CPTA Apr 13, 2021 09:27
[2021-04-13] MEDS: polyethylene glycoL POWDER 17 GM (MIRALAX) PACK PO SCH ×2 (09:28→20:30)
[2021-04-13] MEDS: PANTOPRAZOLE 40 MG (PROTONIX) TAB PO SCH ×2 (09:28→20:29)
--- NOTE | 2021-04-13 10:26 | Occupational Ther Daily Note ---
OT Current Status-Daily Note Subjective Pt seen in bed, agreeable to OT. Wants to shower this am. Pain not mentioned until pt reported some discomfort during shower and nursing notified to please check on meds. Appearance Alert, cooperative ADL-Treatment Pt able to get to sit EOB without help and was able to sit to stand with SBA when bed elevated, unable to push up from bed due to hand pain. Walked SBA with FWW with platforms to bathroom and transferred to shower bench with CGA. Used grab bars to assist with sitting down. Pt provided with dressing stick to try to use to help take pants and socks off and she said it worked well. Also provided pt with long handled sponge to use to wash her lower legs. Pt educ on how to use it to dry lower legs as well. Pt found this very useful. She was able to wash and dry all parts except her back, using shower bench, grab bars, hand held shower. SBA when drying bottom. Sit to stand with min assist due to lower seat. She walked SBA, FWW to BSC over toilet to dress and toilet. Toilet transfer SBA. Managed clothing and hygiene with SBA. Used dressing stick to don panties and slacks with SBA when pulling pants up. Donned shirt with setup. Pt found BSC a little low so traded it out for a taller one which worked well. Pt transferred to chair with arms with SBA and was seated at sink. She was able to brush teeth, comb hair, dry her hair independently. Min assist needed to get up out of chair with arms. Walked back to bed to don socks. Pt was pale and fatigued after shower and requested to lie down for a few minutes. Vitals taken and nursing notified. While she recovered, we discussed transfer tub benches and bedside commodes and, per her request, sample photos send to her daughter. Pt sat EOB and was able to don both slipper socks with supervision, using sock aid, using palming motions to position socks on device. Pt was left up in bed, with all needs met. Staff researching making her a short thumb spica splint for L hand to stabilize and position L thumb in some flexion/abduction for functional use. Therapy Code Descriptions/Definitions Functional [place] Measure: 0=Not Assessed/NA 4=Minimal Assistance 1=Total Assistance 5=Supervision or Setup 2=Maximal Assistance 6=Modified [place] 3=Moderate Assistance 7=Complete IndependenceSCALE: Activities may be completed with or without assistive devices. 8-Zjpzvnxmcg-rbjuxbj completes the activity by him/herself with no assistance from a helper. 5-Set-up or Clean-up Assistance-helper sets up or cleans up; patient completes activity. [place] assists only prior to or following the activity. 4-Supervision or Touching Assistance-helper provides verbal cues and/or touching/steadying and/or contact guard assistance as patient completes a ctivity. Assistance may be provided throughout the activity or intermittently. 3-Partial/Moderate Assistance-helper does LESS THAN HALF the effort. [place] lifts, holds or supports trunk or limbs, but provides less than half the effort. 2-Substantial/Maximal Assistance-helper does MORE THAN HALF the effort. [place] lifts or holds trunk or limbs and provides more than half the effort. 0-Frtvylvrq-vfyirq does ALL the effort. Patient does none of the effort to complete the activity. Or, the assistance of 2 or more helpers is required for the patient to complete the activity. If activity was not attempted, code reason: 7-Patient Refused. 9-Not Applicable-not attempted and the patient did not perform the activity before the current illness, exacerbation or injury. 10-Not Attempted due to Environmental Limitations-(lack of equipment, weather restraints, etc.). 88-Not Attempted due to Medical Conditions or Safety Concerns. Oral Hygiene (QC): 6 Shower/Bathe Self (QC): 4 (SBA to dry bottom) Upper Body Dressing (QC): 5 Lower Body Dressing (QC): 4 (SBA to pull pants up) On/Off Footwear: 4 (supervision) Toileting Hygiene (QC): 4 (SBA) Toilet Transfer (QC): 4 (SBA) Education OT Patient Education: Modified ADL techniques, Progress toward Goal/Update tx plan, Purpose of tx/functional activities, Transfer techniques, Use of adapted equipment Teaching Recipient: Patient Teaching Methods: Demonstration, Discussion Response to Teaching: Verbalize Understanding, Return Demonstration OT Short Term Goals Short Term Goals Time Frame: Apr 19, 2021 Toileting hygiene: 4 Shower/bathe self: 4 Lower body dressin Putting on/taking off footwear: 4 OT Care Attendant Goals Long-Term Goals Time Frame: May 03, 2021 Eating (QC): 6 Oral Hygiene (QC): 6 Toileting Hygiene (QC): 6 Shower/Bathe Self (QC): 6 Upper Body Dressing (QC): 6 Lower Body Dressing (QC): 6 On/Off Footwear (QC): 6 Additional Goals: 1-Demonstrate ADL Tasks, 2-Verbalize Understanding, 3- ImproveStrength/Juan 1=Demonstrate adherence to instructed precautions during ADL tasks. 2=Patient will verbalize/demonstrate understanding of assistive devices/modifications for ADL. 3=Patient will improve strength/tolerance for activity to enable patient to perform ADL's. OT Education/Plan Discharge Recommendations Plan/Recommendations: Continue POC Treatment Plan/Plan of Care Patient would benefit from OT for education, treatment and training to promote independence in ADL's, mobility, safety and/or upper extremity function for ADL's. Plan of Care: ADL Retraining, Functional Mobility, Group Exercise/Act as Ind, UE Funct Exercise/Act Treatment Duration: May 03, 2021 Frequency: At least 5 of 7 days/Wk (IRF) Estimated Hrs Per Day: 1.5 hours per day Rehab Potential: Fair Time/GCodes Start Time: 08:30 Stop Time: 10:03 Total Time Billed (hr/min): 93 Billed Treatment Time visit, 93 minutes ADL RAFAEL MUELLER OT Apr 13, 2021 10:26
--- NOTE | 2021-04-13 11:37 | Physical Therapy Daily Note ---
PT Daily Note-Current Subjective Pt denies pain. Pt says "I am doing really well. I am just weaker today." Pt agreeable to treatment. Mental Status Patient Orientation: Person, Place, Situation Transfers SCALE: Activities may be completed with or without assistive devices. 0-Etfownzuwg-udervbd completes the activity by him/herself with no assistance from a helper. 5-Set-up or Clean-up Assistance-helper sets up or cleans up; patient completes activity. [place] assists only prior to or following the activity. 4-Supervision or Touching Assistance-helper provides verbal cues and/or touching/steadying and/or contact guard assistance as patient completes ac tivity. Assistance may be provided throughout the activity or intermittently. 3-Partial/Moderate Assistance-helper does LESS THAN HALF the effort. [place] lifts, holds or supports trunk or limbs, but provides less than half the effort. 2-Substantial/Maximal Assistance-helper does MORE THAN HALF the effort. [place] lifts or holds trunk or limbs and provides more than half the effort. 9-Wdhlcyabp-eiyajc does ALL the effort. Patient does none of the effort to complete the activity. Or, the assistance of 2 or more helpers is required for the patient to complete the activity. If activity was not attempted, code reason: 7-Patient Refused. 9-Not Applicable-not attempted and the patient did not perform the activity before the current illness, exacerbation or injury. 10-Not Attempted due to Environmental Limitations-(lack of equipment, weather restraints, etc.). 88-Not Attempted due to Medical Conditions or Safety Concerns. Pt mod (I) with transfers Weight Bearing Left Lower Extremity: Left Weight Bearing/Tolerated Gait Training Gait Assistive Device: Walker Platform Pt amb with PW and CGA 4 x 200' Exercises NuStep Minutes: 25 NuStep Workload: 2 Treatments seated ther ex 2 x 20 reps, heel raise, LAQ Assessment Current Status: Good Progress Pt barney very well with rest breaks as needed. Pt back to bed with call light and all needs met. Daughter present. PT Short Term Goals Short Term Goals Time Frame: Apr 18, 2021 Roll Left & Right: 6 Sit to lyin Lying to sitting on side of be: 4 Sit to stand: 4 Walk 10 feet: 4 Walk 50 feet with two turns: 4 Walk 150 feet: 4 PT Pellet Preparation Operator Goals Correction Goals PT Pellet Preparation Operator Goals Time Frame: May 02, 2021 Roll Left & Right (QC): 6 Sit to Lying (QC): 6 Lying-Sitting on Side/Bed(QC): 6 Sit to Stand (QC): 6 Chair/Wzj-sw-Vrhny Xfer(QC): 6 Toilet Transfer (QC): 6 Car Transfer (QC): 6 Does the Patient Walk: Yes Walk 10 feet (QC): 6 Walk 50ft with 2 Turns (QC): 6 Walk 150 ft (QC): 6 Walking 10ft on Uneven Surface: 6 1 Step (curb) (QC): 4 4 Steps (QC): 4 12 Steps (QC): 88 Picking up an Object (QC): 88 Wheel 50 feet with 2 turns (QC: 9 Wheel 150 feet: 9 PT Plan Treatment/Plan Treatment Plan: Continue Plan of Care Treatment Plan: Bed Mobility, Education, Functional Activity Juan, Functional Strength, Group Therapy, Gait, Safety, Therapeutic Exercise, Transfers Treatment Duration: May 02, 2021 Frequency: At least 5 of 7 days/Wk (IRF) Estimated Hrs Per Day: 1.5 hours per day Patient and/or Family Agrees t: Yes Time/GCodes Time In: 1100 Time Out: 1215 Total Billed Treatment Time: 75 Total Billed Treatment 1, ther ex 45', gait 30' SIOBHAN PEÑA CPTA Apr 13, 2021 11:37
[2021-04-13 20:00] VITALS: BP 123/69
[2021-04-13] MEDS: AMITRIPTYLINE 50 MG (ELAVIL) TAB PO SCH (20:29)
[2021-04-13] MEDS: rOPINIRole 0.25 MG (REQUIP) TAB PO SCH (20:29)
[2021-04-13] MEDS: ZOLPIDEM 5 MG (AMBIEN) TAB PO PRN (21:44)
--- NOTE | 2021-04-14 06:15 | PM&R Progress Note ---
Subjective HPI/CC On Admission Date Seen by Provider: Apr 14, 2021 Time Seen by Provider: 06:20 Subjective/Events-last exam 04/14/2021: Patient doing really well Trying to get Linzess started since she has chronic constipation issues Check meds and labs Pain is well controlled 04/13/2021: Patient doing well Updated her on the iron infusion and B12 injection Talked about hand surgeon consult Denies any new issues 04/12/2021: Patient doing well Diclofenac gel will be used on hands Updated her on x-ray results and Dr. Davis evaluation for thumbs not to be dislocated just RA severe changes he will see her as an outpatient Hemoglobin will be checked periodically to prevent phlebotomy Ordered iron 04/11/2021: Patient doing pretty well Hemoglobin 7.9 Oxygen at night used Hand x-rays reviewed with Dr. Davis who will see her as an outpatient Pain is pretty significant since she is on her third day status post hip fracture repair Checking iron Review of Systems General: Fatigue, Malaise Musculoskeletal: leg pain Objective Exam Vital Signs Vital Signs Date Time Temp Pulse Resp B/P (MAP) Pulse Ox O2 Delivery O2 Flow Rate FiO2 04/14/21 09:53 95 Room Air 04/14/21 07:30 37.5 100 20 134/65 (88) 04/11/21 21:29 2.00 Capillary Refill : Less Than 3 Seconds General Appearance: No Apparent Distress, WD/WN, Chronically ill HEENT: PERRL/EOMI, Normal ENT Inspection, Pharynx Normal Neck: Full Range of Motion, Normal Inspection, Non Tender, Supple, Carotid Bruit Respiratory: Chest Non Tender, Lungs Clear, Normal Breath Sounds, No Accessory Muscle Use, No Respiratory Distress Cardiovascular: Regular Rate, Rhythm, No Edema, No Gallop, No JVD, No Murmur Back: Normal Inspection, No CVA Tenderness, No Vertebral Tenderness Extremity: Normal Capillary Refill, Normal Inspection, Normal Range of Motion (Except left leg), Non Tender, No Calf Tenderness Neurologic/Psychiatric: Alert, Oriented x3, No Motor/Sensory Deficits, Normal Mood/Affect, Abnormal Gait, Motor Weakness (Generalized) Skin: Pallor (Patient states she has been anemic ) Results/Procedures Lab Patient resulted labs reviewed. FIM Transfers Therapy Code Descriptions/Definitions Functional [place] Measure: 0=Not Assessed/NA 4=Minimal Assistance 1=Total Assistance 5=Supervision or Setup 2=Maximal Assistance 6=Modified [place] 3=Moderate Assistance 7=Complete IndependenceSCALE: Activities may be completed with or without assistive devices. 1-Xkzauoaoct-iiktqfc completes the activity by him/herself with no assistance from a helper. 5-Set-up or Clean-up Assistance-helper sets up or cleans up; patient completes activity. [place] assists only prior to or following the activity. 4-Supervision or Touching Assistance-helper provides verbal cues and/or chapo esther/steadying and/or contact guard assistance as patient completes activity. Assistance may be provided throughout the activity or intermittently. 3-Partial/Moderate Assistance-helper does LESS THAN HALF the effort. [place] lifts, holds or supports trunk or limbs, but provides less than half the effort. 2-Substantial/Maximal Assistance-helper does MORE THAN HALF the effort. [place] lifts or holds trunk or limbs and provides more than half the effort. 2-Yvmktgfxc-tmdrkn does ALL the effort. Patient does none of the effort to complete the activity. Or, the assistance of 2 or more helpers is required for the patient to complete the activity. If activity was not attempted, code reason: 7-Patient Refused. 9-Not Applicable-not attempted and the patient did not perform the activity before the current illness, exacerbation or injury. 10-Not Attempted due to Environmental Limitations-(lack of equipment, weather restraints, etc.). 88-Not Attempted due to Medical Conditions or Safety Concerns. Roll Left to Right (QC): 4 Sit to Lying (QC): 4 Sit to Stand (QC): 3 Chair/Dmj-ou-Lddzj Xfer(QC): 4 Car Transfer (QC): 3 Gait Training Does the Patient Walk?: Yes Distance: 200' x2 Walk 10 feet (QC): 4 Walk 50 ft with 2 Turns(QC): 4 Walk 150 ft (QC): 4 Walking 10ft/uneven surface-QC: 4 Gait Persons Needed: 1 Gait Assistive Device: Walker Platform Wheelchair Training Does the Pt Use a Wheelchair?: No Wheel 50 ft with 2 turns (QC): 9 Wheel 150 ft (QC): 9 Stair Training #of Steps: 1 1 Step (curb) (QC): 4 4 Steps (QC): 88 12 Steps (QC): 88 Balance Picking up an Object (QC): 88 ADL-Treatment Eating (QC): 5 (set up assistance. Pt able to use universal cuff to eat meals. Requires assistance opening containers and cutting food.) Oral Hygiene (QC): 6 Shower/Bathe Self (QC): 4 (SBA to dry bottom) Upper Body Dressing (QC): 5 Lower Body Dressing (QC): 4 (SBA to pull pants up) On/Off Footwear (QC): 4 (supervision) Toileting Hygiene (QC): 4 (SBA) Toilet Transfer (QC): 4 (SBA) Assessment/Plan Assessment and Plan Assess & Plan/Chief Complaint Assessment: Left hip fracture status post repair by Dr. 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 DAVIS as an outpatient Iron deficiency anemia giving iron infusions Vitamin B12 deficiency started on supplement Plan: Inpatient rehab protocol Supportive care Monitor pain Bowel regimen 04/11/2021: Monitor hemoglobin Check iron level Check B12 level 04/12/2021: Iron infusions Hemoglobin checks periodically 04/13/2021: Continue iron infusions Pain control Monitor closely 04/14/2021: Supportive care B12 and iron supplements Start Linzess (1) Hip fracture LU VARGAS DO Apr 14, 2021 06:15
[2021-04-14] MEDS: MELOXICAM 7.5 MG (MOBIC) TABLET PO SCH ×2 (06:18→17:35)
[2021-04-14] MEDS: LEVOTHYROXINE 75 MCG (LEVOTHROID) TABLET PO SCH (06:18)
[2021-04-14] MEDS: CYANOCOBALAMIN 1,000 MCG (VITAMIN B-12) TABLET PO SCH (06:18)
[2021-04-14] MEDS: PREGABALIN 75 MG (LYRICA) CAP PO SCH ×3 (06:18→21:21)
[2021-04-14] MEDS: CATHETER FLUSH 10 ML SYR IV SCH ×3 (06:19→21:22)
[2021-04-14 07:30] VITALS: BP 134/65
[2021-04-14] MEDS: ASPIRIN E.C. 81 MG (ECOTRIN) TAB PO SCH ×2 (08:14→21:19)
[2021-04-14] MEDS: SENNA W/DOCUSATE (SENOKOT S) TABLET PO SCH ×2 (08:15→21:21)
[2021-04-14] MEDS: FOLIC ACID 1 MG TAB PO SCH (08:15)
[2021-04-14] MEDS: eZETimibe 10 MG (ZETIA) TABLET PO SCH (08:15)
[2021-04-14] MEDS: PANTOPRAZOLE 40 MG (PROTONIX) TAB PO SCH ×2 (08:15→21:19)
[2021-04-14] MEDS: polyethylene glycoL POWDER 17 GM (MIRALAX) PACK PO SCH ×2 (08:16→21:19)
[2021-04-14] MEDS: IRON SUCROSE 200 MG/10 ML (VENOFER) VIAL IV SCH (08:16)
[2021-04-14] MEDS: metFORMIN 500 MG (GLUCOPHAGE) TAB PO SCH ×2 (08:16→17:35)
[2021-04-14] MEDS: DOCUSATE SODIUM 100 MG (COLACE) CAP PO SCH ×2 (08:16→21:20)
[2021-04-14] MEDS: HYDROXYCHLOROQUINE 200 MG (PLAQUENIL) TAB PO SCH ×2 (08:16→17:35)
[2021-04-14] MEDS: VITAMIN D3 25 MCG (1,000 UNITS) TABLET PO SCH (08:16)
[2021-04-14] MEDS: MONTELUKAST 10 MG (SINGULAIR) TAB PO SCH (08:16)
[2021-04-14] MEDS: DICLOFENAC 1% GEL 100 GM (VOLTAREN) TUBE TOP PRN (09:37)
[2021-04-14 19:59] VITALS: BP 150/72
[2021-04-14] MEDS: AMITRIPTYLINE 50 MG (ELAVIL) TAB PO SCH (21:20)
[2021-04-14] MEDS: rOPINIRole 0.25 MG (REQUIP) TAB PO SCH (21:21)
[2021-04-14] MEDS: ZOLPIDEM 5 MG (AMBIEN) TAB PO PRN (21:21)
[2021-04-15] MEDS: PREGABALIN 75 MG (LYRICA) CAP PO SCH ×3 (06:08→21:27)
[2021-04-15] MEDS: CYANOCOBALAMIN 1,000 MCG (VITAMIN B-12) TABLET PO SCH (06:08)
[2021-04-15] MEDS: LEVOTHYROXINE 75 MCG (LEVOTHROID) TABLET PO SCH (06:08)
[2021-04-15] MEDS: CATHETER FLUSH 10 ML SYR IV SCH ×3 (06:08→22:17)
[2021-04-15] MEDS: MELOXICAM 7.5 MG (MOBIC) TABLET PO SCH ×2 (06:08→17:13)
[2021-04-15 06:13] LABS: BASOPHILS # (AUTO) 0.1 10^3/uL (0.0-0.1); BASOPHILS % (AUTO) 1 % (0-10); EOSINOPHILS # (AUTO) 0.5 10^3/uL (0.0-0.3); EOSINOPHILS % (AUTO) 4 % (0-10); HEMATOCRIT 28 % (35-52); HEMOGLOBIN 8.4 g/dL (11.5-16.0); LYMPHOCYTES # (AUTO) 3.8 10^3/uL (1.0-4.0); LYMPHOCYTES % (AUTO) 28 % (12-44); MEAN CORPUSCULAR HEMOGLOBIN 27 pg (25-34); MEAN CORPUSCULAR HGB CONC 30 g/dL (32-36); MEAN CORPUSCULAR VOLUME 87 fL (80-99); MEAN PLATELET VOLUME 11.2 fL (9.0-12.2); MONOCYTES # (AUTO) 1.5 10^3/uL (0.0-1.0); MONOCYTES % (AUTO) 11 % (0-12); NEUTROPHILS # (AUTO) 6.7 10^3/uL (1.8-7.8); NEUTROPHILS % (AUTO) 50 % (42-75); PLATELET COUNT 379 10^3/uL (130-400); WHITE BLOOD COUNT 13.5 10^3/uL (4.3-11.0)
[2021-04-15 06:49] LABS: ALBUMIN 3.4 GM/DL (3.2-4.5); POTASSIUM 4.1 MMOL/L (3.6-5.0)
[2021-04-15 06:51] LABS: CALCIUM 9.4 MG/DL (8.5-10.1)
[2021-04-15 06:52] LABS: TOTAL PROTEIN 6.4 GM/DL (6.4-8.2)
[2021-04-15 06:54] LABS: BILIRUBIN,TOTAL 0.6 MG/DL (0.1-1.0)
[2021-04-15 06:55] LABS: CREATININE SERUM 0.85 MG/DL (0.60-1.30)
[2021-04-15] MEDS: polyethylene glycoL POWDER 17 GM (MIRALAX) PACK PO SCH ×2 (07:59→21:12)
[2021-04-15 08:00] VITALS: BP 116/57
[2021-04-15] MEDS: ASPIRIN E.C. 81 MG (ECOTRIN) TAB PO SCH ×2 (08:00→21:11)
[2021-04-15] MEDS: SENNA W/DOCUSATE (SENOKOT S) TABLET PO SCH ×2 (08:00→21:11)
[2021-04-15] MEDS: HYDROXYCHLOROQUINE 200 MG (PLAQUENIL) TAB PO SCH ×2 (08:00→17:13)
[2021-04-15] MEDS: PANTOPRAZOLE 40 MG (PROTONIX) TAB PO SCH ×2 (08:00→21:11)
[2021-04-15] MEDS: MONTELUKAST 10 MG (SINGULAIR) TAB PO SCH (08:00)
[2021-04-15] MEDS: FOLIC ACID 1 MG TAB PO SCH (08:00)
[2021-04-15] MEDS: metFORMIN 500 MG (GLUCOPHAGE) TAB PO SCH ×2 (08:00→17:14)
[2021-04-15] MEDS: eZETimibe 10 MG (ZETIA) TABLET PO SCH (08:00)
[2021-04-15] MEDS: DOCUSATE SODIUM 100 MG (COLACE) CAP PO SCH ×2 (08:00→21:11)
[2021-04-15] MEDS: VITAMIN D3 25 MCG (1,000 UNITS) TABLET PO SCH (08:00)
--- NOTE | 2021-04-15 10:58 | PM&R Progress Note ---
Subjective HPI/CC On Admission Date Seen by Provider: Apr 15, 2021 Time Seen by Provider: 10:00 Subjective/Events-last exam 04/15/2021: Patient doing well Bowels moved after suppository and fleets Hemoglobin 8.4 White count 13.5 In and out cath obtained for urine since she does have chronic UTIs and she feels like she has 1 Levaquin is the only thing that works she reports 04/14/2021: Patient doing really well Trying to get Linzess started since she has chronic constipation issues Check meds and labs Pain is well controlled 04/13/2021: Patient doing well Updated her on the iron infusion and B12 injection Talked about hand surgeon consult Denies any new issues 04/12/2021: Patient doing well Diclofenac gel will be used on hands Updated her on x-ray results and Dr. Davis evaluation for thumbs not to be dislocated just RA severe changes he will see her as an outpatient Hemoglobin will be checked periodically to prevent phlebotomy Ordered iron 04/11/2021: Patient doing pretty well Hemoglobin 7.9 Oxygen at night used Hand x-rays reviewed with Dr. Davis who will see her as an outpatient Pain is pretty significant since she is on her third day status post hip fracture repair Checking iron Review of Systems General: Fatigue, Malaise Genitourinary: Frequency Objective Exam Vital Signs Vital Signs Date Time Temp Pulse Resp B/P (MAP) Pulse Ox O2 Delivery O2 Flow Rate FiO2 04/15/21 20:50 96 Room Air 04/15/21 19:45 36.6 96 16 113/65 (81) 04/15/21 07:03 1.50 Capillary Refill : Less Than 3 Seconds General Appearance: No Apparent Distress, WD/WN, Chronically ill HEENT: PERRL/EOMI, Normal ENT Inspection, Pharynx Normal Neck: Full Range of Motion, Normal Inspection, Non Tender, Supple, Carotid Bruit Respiratory: Chest Non Tender, Lungs Clear, Normal Breath Sounds, No Accessory Muscle Use, No Respiratory Distress Cardiovascular: Regular Rate, Rhythm, No Edema, No Gallop, No JVD, No Murmur Back: Normal Inspection, No CVA Tenderness, No Vertebral Tenderness Extremity: Normal Capillary Refill, Normal Inspection, Normal Range of Motion (Except left leg), Non Tender, No Calf Tenderness Neurologic/Psychiatric: Alert, Oriented x3, No Motor/Sensory Deficits, Normal Mood/Affect, Abnormal Gait, Motor Weakness (Generalized) Skin: Pallor (Patient states she has been anemic ) Results/Procedures Lab Laboratory Tests 04/15/21 05:44 Patient resulted labs reviewed. FIM Transfers Therapy Code Descriptions/Definitions Functional [place] Measure: 0=Not Assessed/NA 4=Minimal Assistance 1=Total Assistance 5=Supervision or Setup 2=Maximal Assistance 6=Modified [place] 3=Moderate Assistance 7=Complete IndependenceSCALE: Activities may be completed with or without assistive devices. 3-Surnoccjdf-cmeonmu completes the activity by him/herself with no assistance from a helper. 5-Set-up or Clean-up Assistance-helper sets up or cleans up; patient completes activity. [place] assists only prior to or following the activity. 4-Supervision or Touching Assistance-helper provides verbal cues and/or touching/steadying and/or contact guard assistance as patient completes activity. Assistance may be provided throughout the activity or intermittently. 3-Partial/Moderate Assistance-helper does LESS THAN HALF the effort. [place] lifts, holds or supports trunk or limbs, but provides less than half the effort. 2-Substantial/Maximal Assistance-helper does MORE THAN HALF the effort. [place] lifts or holds trunk or limbs and provides more than half the effort. 4-Cneclvurn-nodxte does ALL the effort. Patient does none of the effort to complete the activity. Or, the assistance of 2 or more helpers is required for the patient to complete the activity. If activity was not attempted, code reason: 7-Patient Refused. 9-Not Applicable-not attempted and the patient did not perform the activity before the current illness, exacerbation or injury. 10-Not Attempted due to Environmental Limitations-(lack of equipment, weather restraints, etc.). 88-Not Attempted due to Medical Conditions or Safety Concerns. Roll Left to Right (QC): 4 Sit to Lying (QC): 4 Sit to Stand (QC): 3 Chair/Bep-md-Bowkd Xfer(QC): 4 Car Transfer (QC): 3 Gait Training Does the Patient Walk?: Yes Distance: 200' x2 Walk 10 feet (QC): 4 Walk 50 ft with 2 Turns(QC): 4 Walk 150 ft (QC): 4 Walking 10ft/uneven surface-QC: 4 Gait Persons Needed: 1 Gait Assistive Device: Walker Platform Wheelchair Training Does the Pt Use a Wheelchair?: No Wheel 50 ft with 2 turns (QC): 9 Wheel 150 ft (QC): 9 Stair Training #of Steps: 1 1 Step (curb) (QC): 4 4 Steps (QC): 88 12 Steps (QC): 88 Balance Picking up an Object (QC): 88 ADL-Treatment Eating (QC): 5 (set up assistance. Pt able to use universal cuff to eat meals. Requires assistance opening containers and cutting food.) Oral Hygiene (QC): 6 Shower/Bathe Self (QC): 4 (SBA to dry bottom) Upper Body Dressing (QC): 5 Lower Body Dressing (QC): 4 (SBA to pull pants up) On/Off Footwear (QC): 4 (supervision) Toileting Hygiene (QC): 4 (SBA) Toilet Transfer (QC): 4 (SBA) Assessment/Plan Assessment and Plan Assess & Plan/Chief Complaint Assessment: Left hip fracture status post repair by Dr. 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 DAVIS as an outpatient Iron deficiency anemia giving iron infusions Vitamin B12 deficiency started on supplement Acute UTI history of UTIs started treatment 04/15/2021 Plan: Inpatient rehab protocol Supportive care Monitor pain Bowel regimen 04/11/2021: Monitor hemoglobin Check iron level Check B12 level 04/12/2021: Iron infusions Hemoglobin checks periodically 04/13/2021: Continue iron infusions Pain control Monitor closely 04/14/2021: Supportive care B12 and iron supplements Start Linzess 04/15/2021: Start Levaquin for UTI Supportive care Iron infusions (1) Hip fracture LU VARGAS DO Apr 15, 2021 10:58
--- NOTE | 2021-04-15 11:56 | Physical Therapy Daily Note ---
PT Daily Note-Current Subjective Pt in recliner upon arrival and agrees to tx. Pt states pain is low, doesn't rate out of 10. Mental Status Patient Orientation: Person, Place, Time, Situation Transfers SCALE: Activities may be completed with or without assistive devices. 3-Gbvimwvolg-ehsaqfq completes the activity by him/herself with no assistance from a helper. 5-Set-up or Clean-up Assistance-helper sets up or cleans up; patient completes activity. [place] assists only prior to or following the activity. 4-Supervision or Touching Assistance-helper provides verbal cues and/or touching/steadying and/or contact guard assistance as patient completes activit y. Assistance may be provided throughout the activity or intermittently. 3-Partial/Moderate Assistance-helper does LESS THAN HALF the effort. [place] lifts, holds or supports trunk or limbs, but provides less than half the effort. 2-Substantial/Maximal Assistance-helper does MORE THAN HALF the effort. [place] lifts or holds trunk or limbs and provides more than half the effort. 2-Uuirjrozj-tjmfxc does ALL the effort. Patient does none of the effort to complete the activity. Or, the assistance of 2 or more helpers is required for the patient to complete the activity. If activity was not attempted, code reason: 7-Patient Refused. 9-Not Applicable-not attempted and the patient did not perform the activity before the current illness, exacerbation or injury. 10-Not Attempted due to Environmental Limitations-(lack of equipment, weather restraints, etc.). 88-Not Attempted due to Medical Conditions or Safety Concerns. Sit to Stand (QC): 4 Weight Bearing Left Lower Extremity: Left Weight Bearing/Tolerated Gait Training Does the Patient Walk?: Yes Distance: 300', 100' x2 Walk 10 feet (QC): 5 Walk 50 ft with 2 Turns(QC): 5 Walk 150 ft (QC): 5 Gait Assistive Device: Walker Platform Pt amb w/ B platform walker, SBA throughout. Pt has no gait deviations noted at this time. Exercises NuStep Minutes: 13 NuStep Workload: 5 Treatments Pt sit to stand from recliner CGA, pulling up from FWW and amb to therapy gym. Pt completes NuStep, then amb 75' back to room to order lunch. Pt then amb 300' on ARU w/ SBA, then returns to therapy gym. Pt completes dynamic standing balance activity, weight shifting and using R UE to grab and toss bridges bags. Pt able to complete w/ CGA and no support from UE. Pt then amb back to room and returns to bed, left with all needs met and call light in hand. Assessment Current Status: Good Progress Pt increasing in strength and endurance, still fatigues quickly and is limited by pain. PT Short Term Goals Short Term Goals Time Frame: Apr 18, 2021 Roll Left & Right: 6 Sit to lyin Lying to sitting on side of be: 4 Sit to stand: 4 Walk 10 feet: 4 Walk 50 feet with two turns: 4 Walk 150 feet: 4 PT Appliance Tester Goals Appliance Tester Goals PT Appliance Tester Goals Time Frame: May 02, 2021 Roll Left & Right (QC): 6 Sit to Lying (QC): 6 Lying-Sitting on Side/Bed(QC): 6 Sit to Stand (QC): 6 Chair/Rbq-qq-Vbjoz Xfer(QC): 6 Toilet Transfer (QC): 6 Car Transfer (QC): 6 Does the Patient Walk: Yes Walk 10 feet (QC): 6 Walk 50ft with 2 Turns (QC): 6 Walk 150 ft (QC): 6 Walking 10ft on Uneven Surface: 6 1 Step (curb) (QC): 4 4 Steps (QC): 4 12 Steps (QC): 88 Picking up an Object (QC): 88 Wheel 50 feet with 2 turns (QC: 9 Wheel 150 feet: 9 PT Plan Treatment/Plan Treatment Plan: Continue Plan of Care Treatment Plan: Bed Mobility, Education, Functional Activity Juan, Functional Strength, Group Therapy, Gait, Safety, Therapeutic Exercise, Transfers Treatment Duration: May 02, 2021 Frequency: At least 5 of 7 days/Wk (IRF) Estimated Hrs Per Day: 1.5 hours per day Patient and/or Family Agrees t: Yes Time/GCodes Time In: 1100 Time Out: 1200 Total Billed Treatment Time: 60 Total Billed Treatment 1, GTx2, Ex, NM HESHAM AVERY WILDLIFE MANAGER Apr 15, 2021 11:56
[2021-04-15] MEDS: DICLOFENAC 1% GEL 100 GM (VOLTAREN) TUBE TOP PRN (12:03)
--- NOTE | 2021-04-15 12:10 | Occupational Ther Daily Note ---
OT Current Status-Daily Note Subjective Pt was seated in bed upon OT arrival. Pt stated she was ready for a shower and wanted to get dressed for the day. Mental Status/Objective Patient Orientation: Person, Place, Time, Situation ADL-Treatment Therapy Code Descriptions/Definitions Functional [place] Measure: 0=Not Assessed/NA 4=Minimal Assistance 1=Total Assistance 5=Supervision or Setup 2=Maximal Assistance 6=Modified [place] 3=Moderate Assistance 7=Complete IndependenceSCALE: Activities may be completed with or without assistive devices. 2-Ivefbdmgnl-orvpavg completes the activity by him/herself with no assistance from a helper. 5-Set-up or Clean-up Assistance-helper sets up or cleans up; patient completes activity. [place] assists only prior to or following the activity. 4-Supervision or Touching Assistance-helper provides verbal cues and/or touching/steadying and/or contact guard assistance as patient completes activity. Assistance may be provided throughout the activity or intermittently. 3-Partial/Moderate Assistance-helper does LESS THAN HALF the effort. [place] lifts, holds or supports trunk or limbs, but provides less than half the effort. 2-Substantial/Maximal Assistance-helper does MORE THAN HALF the effort. [place] lifts or holds trunk or limbs and provides more than half the effort. 2-Yqwngnkrw-ulbwcc does ALL the effort. Patient does none of the effort to complete the activity. Or, the assistance of 2 or more helpers is required for the patient to complete the activity. If activity was not attempted, code reason: 7-Patient Refused. 9-Not Applicable-not attempted and the patient did not perform the activity before the current illness, exacerbation or injury. 10-Not Attempted due to Environmental Limitations-(lack of equipment, weather restraints, etc.). 88-Not Attempted due to Medical Conditions or Safety Concerns. Oral Hygiene (QC): 6 (Pt performed while seated sink-side for task) Shower/Bathe Self (QC): 4 (Pt was able to wash all parts w/ a long handled sponge. Pt required CGA when standing to wash and dry backside for safety. ) Upper Body Dressing (QC): 5 (Pt required set up. ) Lower Body Dressing (QC): 4 (Pt was able to taniya/doff LBD w/ a dressing stick, requiring 5 VC's at CGA while standing. ) On/Off Footwear: 4 (Pt was able to doff footwear w/ a dressing stick. Pt was able to taniya footwear w/ a sock aide utilizing palming motions to position socks on device correctly. Pt requried 3 VC's. ) Toileting Hygiene (QC): 4 (Pt requried CGA when standing to perform hygiene) Toilet Transfer (QC): 4 (Pt requried CGA for balance w/ platform walker.) Other Treatment Pt was lying supine in bed upon OT arrival. Pt stated she was ready for a shower and wanted to get dressed for the day. Pt worked on bed mobility from supine to seated EOB at [facility]. Pt transferred from EOB to standing w/ platform walker at [facility] for balance and safety. Pt worked on functional mobility from bed to closet to retrieve clothing, then closet to toilet at [facility]. Pt performed toileting, UBD, LBD, and shower tasks, please see above for QC's. Pt worked on functional mobility from bathroom to chair at [facility]. Post tx session, pt was seated in chair, call light in reach, and all needs met. Education OT Patient Education: Correct positioning, Energy conservation, Modified ADL techniques, Progress toward Goal/Update tx plan, Purpose of tx/functional activities, Safety issues, Use of adapted equipment Teaching Recipient: Patient Teaching Methods: Demonstration, Discussion Response to Teaching: Verbalize Understanding, Return Demonstration OT Short Term Goals Short Term Goals Time Frame: Apr 19, 2021 Toileting hygiene: 4 Shower/bathe self: 4 Lower body dressin Putting on/taking off footwear: 4 OT Embedded Software Architect Goals Embedded Software Architect Goals Time Frame: May 03, 2021 Eating (QC): 6 Oral Hygiene (QC): 6 Toileting Hygiene (QC): 6 Shower/Bathe Self (QC): 6 Upper Body Dressing (QC): 6 Lower Body Dressing (QC): 6 On/Off Footwear (QC): 6 Additional Goals: 1-Demonstrate ADL Tasks, 2-Verbalize Understanding, 3- ImproveStrength/Juan 1=Demonstrate adherence to instructed precautions during ADL tasks. 2=Patient will verbalize/demonstrate understanding of assistive devices/modifications for ADL. 3=Patient will improve strength/tolerance for activity to enable patient to perform ADL's. OT Education/Plan Problem List/Assessment Assessment: Decreased Activ Tolerance, Decreased UE Strength, Impaired Coordination, Impaired Funct Balance, Impaired I ADL's, Impaired Self-Care S kills Discharge Recommendations Plan/Recommendations: Continue POC Treatment Plan/Plan of Care Patient would benefit from OT for education, treatment and training to promote independence in ADL's, mobility, safety and/or upper extremity function for ADL's. Plan of Care: ADL Retraining, Functional Mobility, Group Exercise/Act as Ind, UE Funct Exercise/Act Treatment Duration: May 03, 2021 Frequency: At least 5 of 7 days/Wk (IRF) Estimated Hrs Per Day: 1.5 hours per day Rehab Potential: Fair Time/GCodes Start Time: 10:00 Stop Time: 11:00 Total Time Billed (hr/min): 60 Billed Treatment Time 1 Visit, ADL 4 SARAN RODRIGUEZ OT Apr 15, 2021 12:10
[2021-04-15 12:23] LABS: BILIRUBIN,URINE NEGATIVE (NEGATIVE); CLARITY,URINE CLEAR; COLOR,URINE YELLOW; GLUCOSE, URINE (UA) NEGATIVE (NEGATIVE); KETONES,URINE NEGATIVE (NEGATIVE); LEUKOCYTE ESTERASE ,URINE 2+ (NEGATIVE); NITRITE,URINE POSITIVE (NEGATIVE); PROTEIN,URINE NEGATIVE (NEGATIVE)
[2021-04-15 12:53] LABS: BACTERIA,URINE LARGE /HPF; RBC,URINE RARE /HPF; WBC,URINE 25-50 /HPF
--- NOTE | 2021-04-15 15:00 | Occupational Ther Daily Note ---
OT Current Status-Daily Note Subjective Pt was lying supine upon OT arrival. Pt stated she was ready for her tx session. Mental Status/Objective Patient Orientation: Person, Place, Situation Attachments: IV ADL-Treatment Therapy Code Descriptions/Definitions Functional [place] Measure: 0=Not Assessed/NA 4=Minimal Assistance 1=Total Assistance 5=Supervision or Setup 2=Maximal Assistance 6=Modified [place] 3=Moderate Assistance 7=Complete IndependenceSCALE: Activities may be completed with or without assistive devices. 5-Wypphadlih-aqvrbsl completes the activity by him/herself with no assistance from a helper. 5-Set-up or Clean-up Assistance-helper sets up or cleans up; patient completes activity. [place] assists only prior to or following the activity. 4-Supervision or Touching Assistance-helper provides verbal cues and/or touching/steadying and/or contact guard assistance as patient completes activity. Assistance may be provided throughout the activity or intermittently. 3-Partial/Moderate Assistance-helper does LESS THAN HALF the effort. [place] lifts, holds or supports trunk or limbs, but provides less than half the effort. 2-Substantial/Maximal Assistance-helper does MORE THAN HALF the effort. [place] lifts or holds trunk or limbs and provides more than half the effort. 6-Fywbjdqjf-vvatbk does ALL the effort. Patient does none of the effort to complete the activity. Or, the assistance of 2 or more helpers is required for the patient to complete the activity. If activity was not attempted, code reason: 7-Patient Refused. 9-Not Applicable-not attempted and the patient did not perform the activity before the current illness, exacerbation or injury. 10-Not Attempted due to Environmental Limitations-(lack of equipment, weather restraints, etc.). 88-Not Attempted due to Medical Conditions or Safety Concerns. Other Treatment Pt was lying supine in bed upon OT arrival. Pt stated she was ready for her tx session. Pt performed BUE exercises while seated upright in bed x2 rounds of x10 reps, 1lb wrist cuff BUEs, w/ rest breaks between each exercise to support strength and endurance for ADLs: shoulder abduction, shoulder external rotation, shoulder horizontal abduction, elbow flexion, elbow extension. Post tx session, pt was seated upright in bed, call light within reach, and all needs met. Education OT Patient Education: Correct positioning, Energy conservation, Exercise program, Progress toward Goal/Update tx plan, Purpose of tx/functional activities Teaching Recipient: Patient Teaching Methods: Demonstration, Discussion Response to Teaching: Verbalize Understanding, Return Demonstration OT Short Term Goals Short Term Goals Time Frame: Apr 19, 2021 Toileting hygiene: 4 Shower/bathe self: 4 Lower body dressin Putting on/taking off footwear: 4 OT Teacher Adventure Education Goals Half-Way Goals Time Frame: May 03, 2021 Eating (QC): 6 Oral Hygiene (QC): 6 Toileting Hygiene (QC): 6 Shower/Bathe Self (QC): 6 Upper Body Dressing (QC): 6 Lower Body Dressing (QC): 6 On/Off Footwear (QC): 6 Additional Goals: 1-Demonstrate ADL Tasks, 2-Verbalize Understanding, 3- ImproveStrength/Juan 1=Demonstrate adherence to instructed precautions during ADL tasks. 2=Patient will verbalize/demonstrate understanding of assistive devices/modifications for ADL. 3=Patient will improve strength/tolerance for activity to enable patient to perform ADL's. OT Education/Plan Problem List/Assessment Assessment: Decreased Activ Tolerance, Decreased Safety Aware, Decreased UE Strength, Impaired Coordination, Impaired Funct Balance, Impaired I ADL's, Impaired Self-Care Skills, Restricted Funct UE ROM Discharge Recommendations Plan/Recommendations: Continue POC Treatment Plan/Plan of Care Patient would benefit from OT for education, treatment and training to promote independence in ADL's, mobility, safety and/or upper extremity function for ADL's. Plan of Care: ADL Retraining, Functional Mobility, Group Exercise/Act as Ind, UE Funct Exercise/Act Treatment Duration: May 03, 2021 Frequency: At least 5 of 7 days/Wk (IRF) Estimated Hrs Per Day: 1.5 hours per day Rehab Potential: Fair Time/GCodes Start Time: 14:00 Stop Time: 14:30 Total Time Billed (hr/min): 30 Billed Treatment Time 1 Visit, EX 2 SARAN RODRIGUEZ OT Apr 15, 2021 14:59
--- NOTE | 2021-04-15 15:02 | Physical Therapy Daily Note ---
PT Daily Note-Current Subjective Pt in bed upon arrival and agrees to tx. Pt has no c/o pain prior to tx, during bed mobility pt states it increases pain when laying on L side. Mental Status Patient Orientation: Person, Place, Situation Transfers SCALE: Activities may be completed with or without assistive devices. 0-Jj[place]aba-lxbmfpz completes the activity by him/herself with no assistance from a helper. 5-Set-up or Clean-up Assistance-helper sets up or cleans up; patient completes activity. [place] assists only prior to or following the activity. 4-Supervision or Touching Assistance-helper provides verbal cues and/or touching/steadying and/or contact guard assistance as patient completes activity. Assistance may be provided throughout the activity or intermittently. 3-Partial/Moderate Assistance-helper does LESS THAN HALF the effort. [place] lifts, holds or supports trunk or limbs, but provides less than half the effort. 2-Substantial/Maximal Assistance-helper does MORE THAN HALF the effort. [place] lifts or holds trunk or limbs and provides more than half the effort. 2-Ywbejeygf-eacxjm does ALL the effort. Patient does none of the effort to complete the activity. Or, the assistance of 2 or more helpers is required for the patient to complete the activity. If activity was not attempted, code reason: 7-Patient Refused. 9-Not Applicable-not attempted and the patient did not perform the activity before the current illness, exacerbation or injury. 10-Not Attempted due to Environmental Limitations-(lack of equipment, weather restraints, etc.). 88-Not Attempted due to Medical Conditions or Safety Concerns. Roll Left & Right (QC): 4 Sit to Lying (QC): 4 Lying to Sitting/Side of Bed(Q: 4 Sit to Stand (QC): 5 Weight Bearing Left Lower Extremity: Left Weight Bearing/Tolerated Gait Training Does the Patient Walk?: Yes Distance: 200' Walk 10 feet (QC): 4 Walk 50 ft with 2 Turns(QC): 4 Walk 150 ft (QC): 4 Gait Assistive Device: Walker Platform Treatments Pt supine to sit and sit to stand CGA and amb 200' to therapy gym. Pt completes 5 sit to stands from therapy mat at lowest height CGA/SBA. Pt then completes sit to stand from lower sitting chair x5. Pt then amb 200' back to bedroom and sits EOB. Pt attempts sit to supine on L side of bed, same side as at home. Pt completes bed mobility CGA, but causes pain on L side. Pt rolls and sits EOB again. Pt sit to supine and back to sit again, followed by sit to stand CGA. Pt amb to other side of bed and lays down. Pt remains in bed with all needs met, call light in hand. Assessment Current Status: Good Progress Pt increasing strength and improving transfers PT Short Term Goals Short Term Goals Time Frame: Apr 18, 2021 Roll Left & Right: 6 Sit to lyin Lying to sitting on side of be: 4 Sit to stand: 4 Walk 10 feet: 4 Walk 50 feet with two turns: 4 Walk 150 feet: 4 PT Mcfp Goals Mcfp Goals PT Mcfp Goals Time Frame: May 02, 2021 Roll Left & Right (QC): 6 Sit to Lying (QC): 6 Lying-Sitting on Side/Bed(QC): 6 Sit to Stand (QC): 6 Chair/Opw-rx-Cmypg Xfer(QC): 6 Toilet Transfer (QC): 6 Car Transfer (QC): 6 Does the Patient Walk: Yes Walk 10 feet (QC): 6 Walk 50ft with 2 Turns (QC): 6 Walk 150 ft (QC): 6 Walking 10ft on Uneven Surface: 6 1 Step (curb) (QC): 4 4 Steps (QC): 4 12 Steps (QC): 88 Picking up an Object (QC): 88 Wheel 50 feet with 2 turns (QC: 9 Wheel 150 feet: 9 PT Plan Treatment/Plan Treatment Plan: Continue Plan of Care Treatment Plan: Bed Mobility, Education, Functional Activity Juan, Functional Strength, Group Therapy, Gait, Safety, Therapeutic Exercise, Transfers Treatment Duration: May 02, 2021 Frequency: At least 5 of 7 days/Wk (IRF) Estimated Hrs Per Day: 1.5 hours per day Patient and/or Family Agrees t: Yes Time/GCodes Time In: 1430 Time Out: 1500 Total Billed Treatment 1, FA x2 HESHAM AVERY INDEPENDENT CONSULTANT Apr 15, 2021 15:02
[2021-04-15] MEDS ORDERED: PHENAZOPYRIDINE 100 MG (PYRIDIUM) TABLET PO NR (16:00)
[2021-04-15 19:45] VITALS: BP 113/65
[2021-04-15] MEDS: rOPINIRole 0.25 MG (REQUIP) TAB PO SCH (21:11)
[2021-04-15] MEDS: AMITRIPTYLINE 50 MG (ELAVIL) TAB PO SCH (21:11)
[2021-04-15] MEDS: PHENAZOPYRIDINE 100 MG (PYRIDIUM) TABLET PO PRN (21:27)
[2021-04-16] MEDS: CYANOCOBALAMIN 1,000 MCG (VITAMIN B-12) TABLET PO SCH (06:32)
[2021-04-16] MEDS: PREGABALIN 75 MG (LYRICA) CAP PO SCH ×3 (06:32→21:32)
[2021-04-16] MEDS: LEVOTHYROXINE 75 MCG (LEVOTHROID) TABLET PO SCH (06:32)
[2021-04-16] MEDS: MELOXICAM 7.5 MG (MOBIC) TABLET PO SCH ×2 (06:32→17:44)
[2021-04-16] MEDS: CATHETER FLUSH 10 ML SYR IV SCH ×3 (06:34→21:29)
[2021-04-16 08:02] VITALS: BP 119/60
[2021-04-16] MEDS: VITAMIN D3 25 MCG (1,000 UNITS) TABLET PO SCH (08:03)
[2021-04-16] MEDS: PHENAZOPYRIDINE 100 MG (PYRIDIUM) TABLET PO PRN ×3 (08:03→21:28)
[2021-04-16] MEDS: DOCUSATE SODIUM 100 MG (COLACE) CAP PO SCH ×2 (08:03→21:27)
[2021-04-16] MEDS: HYDROXYCHLOROQUINE 200 MG (PLAQUENIL) TAB PO SCH ×2 (08:03→17:44)
[2021-04-16] MEDS: PANTOPRAZOLE 40 MG (PROTONIX) TAB PO SCH ×2 (08:03→21:28)
[2021-04-16] MEDS: eZETimibe 10 MG (ZETIA) TABLET PO SCH (08:04)
[2021-04-16] MEDS: MONTELUKAST 10 MG (SINGULAIR) TAB PO SCH (08:04)
[2021-04-16] MEDS: SENNA W/DOCUSATE (SENOKOT S) TABLET PO SCH ×2 (08:04→21:28)
[2021-04-16] MEDS: FOLIC ACID 1 MG TAB PO SCH (08:04)
[2021-04-16] MEDS: metFORMIN 500 MG (GLUCOPHAGE) TAB PO SCH ×2 (08:04→17:44)
[2021-04-16] MEDS: ASPIRIN E.C. 81 MG (ECOTRIN) TAB PO SCH ×2 (08:04→21:28)
[2021-04-16] MEDS: IRON SUCROSE 200 MG/10 ML (VENOFER) VIAL IV SCH (08:08)
[2021-04-16] MEDS: polyethylene glycoL POWDER 17 GM (MIRALAX) PACK PO SCH ×2 (08:13→21:27)
--- NOTE | 2021-04-16 12:18 | Physical Therapy Daily Note ---
PT Daily Note-Current Subjective Pt sitting in chair in Therapy Gym after finishing w/OT. Pt agrees to PT and asks to try ambulating w/o AD. Pain Location: No Pain Reported Mental Status Patient Orientation: Person, Place, Time, Situation Transfers SCALE: Activities may be completed with or without assistive devices. 0-Vdrdjtdeud-yfflmvf completes the activity by him/herself with no assistance from a helper. 5-Set-up or Clean-up Assistance-helper sets up or cleans up; patient completes activity. [place] assists only prior to or following the activity. 4-Supervision or Touching Assistance-helper provides verbal cues and/or touching/steadying and/or contact guard assistance as patient completes activity. Assistance may be provided throughout the activity or intermittently. 3-Partial/Moderate Assistance-helper does LESS THAN HALF the effort. [place] lift s, holds or supports trunk or limbs, but provides less than half the effort. 2-Substantial/Maximal Assistance-helper does MORE THAN HALF the effort. [place] lifts or holds trunk or limbs and provides more than half the effort. 8-Pahddijsg-gqkazz does ALL the effort. Patient does none of the effort to complete the activity. Or, the assistance of 2 or more helpers is required for the patient to complete the activity. If activity was not attempted, code reason: 7-Patient Refused. 9-Not Applicable-not attempted and the patient did not perform the activity before the current illness, exacerbation or injury. 10-Not Attempted due to Environmental Limitations-(lack of equipment, weather restraints, etc.). 88-Not Attempted due to Medical Conditions or Safety Concerns. Sit to Stand (QC): 5 Weight Bearing Left Lower Extremity: Left Weight Bearing/Tolerated Gait Training Does the Patient Walk?: Yes Distance: 30' x2, 75', 150' Walk 10 feet (QC): 5 Walk 50 ft with 2 Turns(QC): 5 Walk 150 ft (QC): 5 Gait Persons Needed: 1 Gait Assistive Device: FWW Pt attempted walking w/o AD as she asks. Pt fatigues quicker so rest breaks taken and Platform walker used for longer distance (over 75'). Wheelchair Training Does the Pt Use a Wheelchair?: No Exercises Seated Therapy Exercises: Ankle pumps, Long arc quads, Hip flexion, Glut set Seated Reps: 15 Treatments [id number]: Seated Ex completed then amb. in hallway. RB taken as needed then amb. again w/o AD. Pt has FWW adjusted to comfort. Pt amb. using Platform walker in hallway then returns to room to rest at end of tx. All needs met, call light in hand. [id number]: SERVICE COORDINATOR issued written HEP for Supine & Seated Ex. Pt completes Supine EX. All needs met, call light in hand. Assessment Current Status: Good Progress Pt reports fatigue to start tx. Pt completes Ex well. PT Short Term Goals Short Term Goals Time Frame: Apr 18, 2021 Roll Left & Right: 6 Sit to lyin Lying to sitting on side of be: 4 Sit to stand: 4 Walk 10 feet: 4 Walk 50 feet with two turns: 4 Walk 150 feet: 4 PT Custodial Goals Intensivist Goals PT Intensivist Goals Time Frame: May 02, 2021 Roll Left & Right (QC): 6 Sit to Lying (QC): 6 Lying-Sitting on Side/Bed(QC): 6 Sit to Stand (QC): 6 Chair/Cvi-ax-Dyfdd Xfer(QC): 6 Toilet Transfer (QC): 6 Car Transfer (QC): 6 Does the Patient Walk: Yes Walk 10 feet (QC): 6 Walk 50ft with 2 Turns (QC): 6 Walk 150 ft (QC): 6 Walking 10ft on Uneven Surface: 6 1 Step (curb) (QC): 4 4 Steps (QC): 4 12 Steps (QC): 88 Picking up an Object (QC): 88 Wheel 50 feet with 2 turns (QC: 9 Wheel 150 feet: 9 PT Plan Problem List Problem List: Activity Tolerance Treatment/Plan Treatment Plan: Continue Plan of Care Treatment Plan: Bed Mobility, Education, Functional Activity Juan, Functional Strength, Group Therapy, Gait, Safety, Therapeutic Exercise, Transfers Treatment Duration: May 02, 2021 Frequency: At least 5 of 7 days/Wk (IRF) Estimated Hrs Per Day: 1.5 hours per day Patient and/or Family Agrees t: Yes Safety Risks/Education Patient Education: Issued Written HEP, Correct Positioning Teaching Recipient: Patient Teaching Methods: Demonstration, Discussion Response to Teaching: Verbalize Understanding, Return Demonstration Time/GCodes Time In: 1100 Time Out: 1200 Total Billed Treatment Time: 60 Total Billed Treatment [id number]: 1, GT x2 (30m), EX (15m) & FA (15m) [id number]: 1, EX x2 (30m) JUAN A DOBSON SERVICE COORDINATOR Apr 16, 2021 12:18
--- NOTE | 2021-04-16 13:02 | Occupational Ther Daily Note ---
OT Current Status-Daily Note Subjective Pt was lying supine in bed upon OT arrival. Pt stated she was ready to get ready for the day and do therapy. Mental Status/Objective Patient Orientation: Person, Place, Time, Situation ADL-Treatment Therapy Code Descriptions/Definitions Functional [place] Measure: 0=Not Assessed/NA 4=Minimal Assistance 1=Total Assistance 5=Supervision or Setup 2=Maximal Assistance 6=Modified [place] 3=Moderate Assistance 7=Complete IndependenceSCALE: Activities may be completed with or without assistive devices. 5-Tnanfndvif-mmiokzv completes the activity by him/herself with no assistance from a helper. 5-Set-up or Clean-up Assistance-helper sets up or cleans up; patient completes activity. [place] assists only prior to or following the activity. 4-Supervision or Touching Assistance-helper provides verbal cues and/or touching/steadying and/or contact guard assistance as patient completes activity. Assistance may be provided throughout the activity or intermittently. 3-Partial/Moderate Assistance-helper does LESS THAN HALF the effort. [place] lifts, holds or supports trunk or limbs, but provides less than half the effort. 2-Substantial/Maximal Assistance-helper does MORE THAN HALF the effort. [place] lifts or holds trunk or limbs and provides more than half the effort. 3-Hufsystko-fistrt does ALL the effort. Patient does none of the effort to complete the activity. Or, the assistance of 2 or more helpers is required for the patient to complete the activity. If activity was not attempted, code reason: 7-Patient Refused. 9-Not Applicable-not attempted and the patient did not perform the activity before the current illness, exacerbation or injury. 10-Not Attempted due to Environmental Limitations-(lack of equipment, weather restraints, etc.). 88-Not Attempted due to Medical Conditions or Safety Concerns. Oral Hygiene (QC): 4 (Pt performed task while standing w/ platform walker at SBA for safety.) Upper Body Dressing (QC): 6 (Pt was able to taniya/doff UB IND while seated.) Lower Body Dressing (QC): 4 (Pt was able to taniya/doff LB at SBA for safety while standing w/ platform walker during task, utilizing a dressing stick. ) On/Off Footwear: 6 (Pt was able to taniya/doff footwear IND while seated w/ sock aide and dressing stick.) Toileting Hygiene (QC): 4 (SBA during stand for clothing management, pt able to perform hygiene. AE utilized PRN) Toilet Transfer (QC): 4 (Pt performed task at SBA for safety. ) Other Treatment Pt was lying supine in bed upon OT arrival. Pt stated she was ready to get ready for the day and do therapy. Pt worked on bed mobility from lying supine to sitting [facility], [facility]. Pt transferred from EOB to standing w/ platform walker at [facility]. Pt performed functional mobility from side of bed to closet, closet to toilet, toilet to sink-side, sink-side to Therapy Gym; all at [facility]. Pt performed toileting, UBD, LBD, footwear, and hygiene tasks, please see above QC's. Pt then performed a functional activity in Gym, while standing, taking seated rest breaks after each: x2 rounds hit balloon w/ R hand; x2 rounds hit balloon w/ L hand; x 2 rounds catching balloon w/ BUE's at SBA only. Post tx, pt remained in gym, PT present for continued tx, all needs met. Education OT Patient Education: Energy conservation, Progress toward Goal/Update tx plan, Purpose of tx/functional activities, Use of adapted equipment Teaching Recipient: Patient Teaching Methods: Demonstration, Discussion Response to Teaching: Verbalize Understanding, Return Demonstration OT Short Term Goals Short Term Goals Time Frame: Apr 19, 2021 Toileting hygiene: 4 Shower/bathe self: 4 Lower body dressin Putting on/taking off footwear: 4 OT Assisted Goals Assisted Goals Time Frame: May 03, 2021 Eating (QC): 6 Oral Hygiene (QC): 6 Toileting Hygiene (QC): 6 Shower/Bathe Self (QC): 6 Upper Body Dressing (QC): 6 Lower Body Dressing (QC): 6 On/Off Footwear (QC): 6 Additional Goals: 1-Demonstrate ADL Tasks, 2-Verbalize Understanding, 3- ImproveStrength/Juan 1=Demonstrate adherence to instructed precautions during ADL tasks. 2=Patient will verbalize/demonstrate understanding of assistive devices/modifications for ADL. 3=Patient will improve strength/tolerance for activity to enable patient to perform ADL's. OT Education/Plan Problem List/Assessment Assessment: Decreased Activ Tolerance, Decreased UE Strength, Impaired Funct Balance, Impaired I ADL's, Impaired Self-Care Skills Discharge Recommendations Plan/Recommendations: Continue POC Treatment Plan/Plan of Care Patient would benefit from OT for education, treatment and training to promote independence in ADL's, mobility, safety and/or upper extremity function for ADL's. Plan of Care: ADL Retraining, Functional Mobility, Group Exercise/Act as Ind, UE Funct Exercise/Act Treatment Duration: May 03, 2021 Frequency: At least 5 of 7 days/Wk (IRF) Estimated Hrs Per Day: 1.5 hours per day Rehab Potential: Fair Time/GCodes Start Time: 10:00 Stop Time: 11:00 Total Time Billed (hr/min): 60 Billed Treatment Time 1 Visit, ADL 2 (30'), FA 2 (30') SARAN RODRIGUEZ OT Apr 16, 2021 13:02
--- NOTE | 2021-04-16 14:12 | ST Cognitive Linguistic Eval ---
Speech Evaluation-General Medical Diagnosis L MICHAEL (anterior) Onset Date: Apr 08, 2021 Medical History Pertinent Medical History: Arthritis, DM, GERD, Rheumatoid Arthritis Reviewed History: Yes Social History Current Living Status: Alone Speech PLF-Current Status Language Eval: Auditory Comprehends Simple Yes/No Ques: Functional Indent/Objects Multiple [place]: Functional Ident/Pics in Multiple [place]: Functional Follows 1-Step Commands: Functional Follows Complex Directions: Functional Follows General Conversations: Functional Language Eval: Verbal Language Completes Spontaneous Greeting: Functional Produces Auto, Serial Info: Functional Imitates Simple Words/Phrases: Functional Word Finding: Functional Requests Basic Needs: Functional States Basic Personal Info: Functional Expresses Complex Ideas: Functional Objective Formal/Standardized Tests [facility] Mental Status Exam (UMS) completed. Results correct Impression Pt presents within normal limits for cognitive function. No speech therapy warranted at this time. Pt with no questions or concerns. Speech Patient Assess Expression of Ideas/Wants: Expression (4) (without difficulty and with) Understanding Verbal Content: Understands (4) (Clear comprehension without) Brief Interview-Mental Status: Yes (Three Words) Repetition of Three Words: Three (3) Temporal Orientation: Year: Correct (3) Temporal Orientation: Month: Accurate within 5 days(2) Temporal Orientation: Day: Correct (1) Recall : Wear to say "Sock": Yes, no cue required (2) Recall : Color: Yes, no cue required (2) Recall : Bed: Yes, no cue required (2) Memory/Recall Ability: Current season, Staff names and faces, That he or she is in a hsp/hsp unit Speech-Plan Treatment Plan Speech Therapy Treatment Plan: Discontinue ST Treatment Duration: Apr 11, 2021 Frequency: Modified Program (IRF) Estimated Hrs Per Day: Other Rehab Potential: Fair Time Speech Therapy Time In: 13:00 Speech Therapy Time Out: 13:30 Billed Treatment Time 1, COGN TEST 30 MINS ALDAIR BERNARD Apr 16, 2021 14:12
--- NOTE | 2021-04-16 14:58 | Occupational Ther Daily Note ---
OT Current Status-Daily Note Subjective Pt in bed, agreeable to OT Tx. Mental Status/Objective Patient Orientation: Normal For Age ADL-Treatment Therapy Code Descriptions/Definitions Functional [place] Measure: 0=Not Assessed/NA 4=Minimal Assistance 1=Total Assistance 5=Supervision or Setup 2=Maximal Assistance 6=Modified [place] 3=Moderate Assistance 7=Complete IndependenceSCALE: Activities may be completed with or without assistive devices. 8-Rkjngkjlmx-iwmdxhl completes the activity by him/herself with no assistance from a helper. 5-Set-up or Clean-up Assistance-helper sets up or cleans up; patient completes activity. [place] assists only prior to or following the activity. 4-Supervision or Touching Assistance-helper provides verbal cues and/or touching/steadying and/or contact guard assistance as patient completes activity. Assistance may be provided throughout the activity or intermittently. 3-Partial/Moderate Assistance-helper does LESS THAN HALF the effort. [place] lifts, holds or supports trunk or limbs, but provides less than half the effort. 2-Substantial/Maximal Assistance-helper does MORE THAN HALF the effort. [place] lifts or holds trunk or limbs and provides more than half the effort. 6-Cfzqluumm-kuaxcd does ALL the effort. Patient does none of the effort to complete the activity. Or, the assistance of 2 or more helpers is required for the patient to complete the activity. If activity was not attempted, code reason: 7-Patient Refused. 9-Not Applicable-not attempted and the patient did not perform the activity before the current illness, exacerbation or injury. 10-Not Attempted due to Environmental Limitations-(lack of equipment, weather restraints, etc.). 88-Not Attempted due to Medical Conditions or Safety Concerns. Other Treatment Pt in bed, OT educated pt on joint protection techniques and activity modifications, including pain management, balancing rest/activity, maintaining strength/ROM, reducing effort of the job, body mechanics, and avoiding pushing towards little finger. OT provided pt with printed handouts and also educated pt on benefits of heat vs ice to decrease pain and increase mobility. Education was provided in order for pt to increase independence with ADLs/IADLs upon returning home. Pt verbalized understanding. Post tx, pt in bed, call light in reach and all needs met. Education OT Patient Education: Correct positioning, Modified ADL techniques, Progress toward Goal/Update tx plan, Purpose of tx/functional activities, Rehab process Teaching Recipient: Patient Teaching Methods: Handout, Discussion Response to Teaching: Verbalize Understanding OT Short Term Goals Short Term Goals Time Frame: Apr 19, 2021 Toileting hygiene: 4 Shower/bathe self: 4 Lower body dressin Putting on/taking off footwear: 4 OT Chcf Goals Commercial Maintenance Technician Goals Time Frame: May 03, 2021 Eating (QC): 6 Oral Hygiene (QC): 6 Toileting Hygiene (QC): 6 Shower/Bathe Self (QC): 6 Upper Body Dressing (QC): 6 Lower Body Dressing (QC): 6 On/Off Footwear (QC): 6 Additional Goals: 1-Demonstrate ADL Tasks, 2-Verbalize Understanding, 3- ImproveStrength/Juan 1=Demonstrate adherence to instructed precautions during ADL tasks. 2=Patient will verbalize/demonstrate understanding of assistive devices/modifications for ADL. 3=Patient will improve strength/tolerance for activity to enable patient to perform ADL's. OT Education/Plan Problem List/Assessment Assessment: Decreased Activ Tolerance, Decreased UE Strength, Impaired Funct Balance, Impaired I ADL's, Impaired Self-Care Skills, Restricted Funct UE ROM Discharge Recommendations Plan/Recommendations: Continue POC Treatment Plan/Plan of Care Patient would benefit from OT for education, treatment and training to promote independence in ADL's, mobility, safety and/or upper extremity function for ADL's. Plan of Care: ADL Retraining, Functional Mobility, Group Exercise/Act as Ind, UE Funct Exercise/Act Treatment Duration: May 03, 2021 Frequency: At least 5 of 7 days/Wk (IRF) Estimated Hrs Per Day: 1.5 hours per day Rehab Potential: Fair Time/GCodes Start Time: 13:30 Stop Time: 13:45 Total Time Billed (hr/min): 15 Billed Treatment Time 1, ADL SARAN RODRIGUEZ OT Apr 16, 2021 14:58
[2021-04-16 20:05] VITALS: BP 110/67
--- NOTE | 2021-04-16 20:48 | PM&R Progress Note ---
Subjective HPI/CC On Admission Date Seen by Provider: Apr 16, 2021 Time Seen by Provider: 10:30 Subjective/Events-last exam 04/16/2021: Patient doing well UTI treated with Levaquin Awaiting microbiology urine culture Bowels are moving with laxatives Third dose of iron infusion 04/15/2021: Patient doing well Bowels moved after suppository and fleets Hemoglobin 8.4 White count 13.5 In and out cath obtained for urine since she does have chronic UTIs and she feels like she has 1 Levaquin is the only thing that works she reports 04/14/2021: Patient doing really well Trying to get Linzess started since she has chronic constipation issues Check meds and labs Pain is well controlled 04/13/2021: Patient doing well Updated her on the iron infusion and B12 injection Talked about hand surgeon consult Denies any new issues 04/12/2021: Patient doing well Diclofenac gel will be used on hands Updated her on x-ray results and Dr. Davis evaluation for thumbs not to be dislocated just RA severe changes he will see her as an outpatient Hemoglobin will be checked periodically to prevent phlebotomy Ordered iron 04/11/2021: Patient doing pretty well Hemoglobin 7.9 Oxygen at night used Hand x-rays reviewed with Dr. Davis who will see her as an outpatient Pain is pretty significant since she is on her third day status post hip fracture repair Checking iron Review of Systems General: Fatigue, Malaise Objective Exam Vital Signs Vital Signs Date Time Temp Pulse Resp B/P (MAP) Pulse Ox O2 Delivery O2 Flow Rate FiO2 04/16/21 20:05 36.2 87 19 110/67 (81) 93 Room Air 04/15/21 07:03 1.50 Capillary Refill : Less Than 3 Seconds General Appearance: No Apparent Distress, WD/WN, Chronically ill HEENT: PERRL/EOMI, Normal ENT Inspection, Pharynx Normal Neck: Full Range of Motion, Normal Inspection, Non Tender, Supple, Carotid Bruit Respiratory: Chest Non Tender, Lungs Clear, Normal Breath Sounds, No Accessory Muscle Use, No Respiratory Distress Cardiovascular: Regular Rate, Rhythm, No Edema, No Gallop, No JVD, No Murmur Back: Normal Inspection, No CVA Tenderness, No Vertebral Tenderness Extremity: Normal Capillary Refill, Normal Inspection, Normal Range of Motion (Except left leg), Non Tender, No Calf Tenderness Neurologic/Psychiatric: Alert, Oriented x3, No Motor/Sensory Deficits, Normal Mood/Affect, Abnormal Gait, Motor Weakness (Generalized) Skin: Pallor (Patient states she has been anemic ) Results/Procedures Lab Patient resulted labs reviewed. FIM Transfers Therapy Code Descriptions/Definitions Functional [place] Measure: 0=Not Assessed/NA 4=Minimal Assistance 1=Total Assistance 5=Supervision or Setup 2=Maximal Assistance 6=Modified [place] 3=Moderate Assistance 7=Complete IndependenceSCALE: Activities may be completed with or without assistive devices. 3-Rmwvymmpts-auayykn completes the activity by him/herself with no assistance from a helper. 5-Set-up or Clean-up Assistance-helper sets up or cleans up; patient completes activity. [place] assists only prior to or following the activity. 4-Supervision or Touching Assistance-helper provides verbal cues and/or touching/steadying and/or contact guard assistance as patient completes activity. Assistance may be provided throughout the activity or intermittently. 3-Partial/Moderate Assistance-helper does LESS THAN HALF the effort. [place] lifts, holds or supports trunk or limbs, but provides less than half the effort. 2-Substantial/Maximal Assistance-helper does MORE THAN HALF the effort. [place] lifts or holds trunk or limbs and provides more than half the effort. 2-Cnxzexqtn-tqxxls does ALL the effort. Patient does none of the effort to complete the activity. Or, the assistance of 2 or more helpers is required for the patient to complete the activity. If activity was not attempted, code reason: 7-Patient Refused. 9-Not Applicable-not attempted and the patient did not perform the activity before the current illness, exacerbation or injury. 10-Not Attempted due to Environmental Limitations-(lack of equipment, weather restraints, etc.). 88-Not Attempted due to Medical Conditions or Safety Concerns. Roll Left to Right (QC): 4 Sit to Lying (QC): 4 Sit to Stand (QC): 5 Chair/Gur-sw-Ckxtf Xfer(QC): 4 Car Transfer (QC): 3 Gait Training Does the Patient Walk?: Yes Distance: 30' x2, 75', 150' Walk 10 feet (QC): 5 Walk 50 ft with 2 Turns(QC): 5 Walk 150 ft (QC): 5 Walking 10ft/uneven surface-QC: 4 Gait Persons Needed: 1 Gait Assistive Device: FWW Wheelchair Training Does the Pt Use a Wheelchair?: No Wheel 50 ft with 2 turns (QC): 9 Wheel 150 ft (QC): 9 Stair Training #of Steps: 1 1 Step (curb) (QC): 4 4 Steps (QC): 88 12 Steps (QC): 88 Balance Picking up an Object (QC): 88 ADL-Treatment Eating (QC): 5 (set up assistance. Pt able to use universal cuff to eat meals. Requires assistance opening containers and cutting food.) Oral Hygiene (QC): 4 (Pt performed task while standing w/ platform walker at SBA for safety.) Shower/Bathe Self (QC): 4 (Pt was able to wash all parts w/ a long handled sponge. Pt required CGA when standing to wash and dry backside for safety. ) Upper Body Dressing (QC): 6 (Pt was able to taniya/doff UB IND while seated.) Lower Body Dressing (QC): 4 (Pt was able to taniya/doff LB at SBA for safety while standing w/ platform walker during task, utilizing a dressing stick. ) On/Off Footwear (QC): 6 (Pt was able to taniya/doff footwear IND while seated w/ sock aide and dressing stick.) Toileting Hygiene (QC): 4 (SBA during stand for clothing management, pt able to perform hygiene. AE utilized PRN) Toilet Transfer (QC): 4 (Pt performed task at SBA for safety. ) Assessment/Plan Assessment and Plan Assess & Plan/Chief Complaint Assessment: Left hip fracture status post repair by Dr. 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 DAVIS as an outpatient Iron deficiency anemia giving iron infusions Vitamin B12 deficiency started on supplement Acute UTI history of UTIs started treatment 04/15/2021 Plan: Inpatient rehab protocol Supportive care Monitor pain Bowel regimen 04/11/2021: Monitor hemoglobin Check iron level Check B12 level 04/12/2021: Iron infusions Hemoglobin checks periodically 04/13/2021: Continue iron infusions Pain control Monitor closely 04/14/2021: Supportive care B12 and iron supplements Start Linzess 04/15/2021: Start Levaquin for UTI Supportive care Iron infusions 04/16/2021: UTI treatment Iron infusion (1) Hip fracture LU VARGAS DO Apr 16, 2021 20:48
[2021-04-16] MEDS: ZOLPIDEM 5 MG (AMBIEN) TAB PO PRN (21:27)
[2021-04-16] MEDS: AMITRIPTYLINE 50 MG (ELAVIL) TAB PO SCH (21:28)
[2021-04-16] MEDS: rOPINIRole 0.25 MG (REQUIP) TAB PO SCH (21:28)
[2021-04-17] MEDS: CYANOCOBALAMIN 1,000 MCG (VITAMIN B-12) TABLET PO SCH (06:40)
[2021-04-17] MEDS: PREGABALIN 75 MG (LYRICA) CAP PO SCH ×3 (06:40→21:46)
[2021-04-17] MEDS: MELOXICAM 7.5 MG (MOBIC) TABLET PO SCH ×2 (06:40→17:43)
[2021-04-17] MEDS: LEVOTHYROXINE 75 MCG (LEVOTHROID) TABLET PO SCH (06:40)
[2021-04-17] MEDS: CATHETER FLUSH 10 ML SYR IV SCH ×3 (06:41→21:46)
--- NOTE | 2021-04-17 08:40 | PM&R Progress Note ---
Subjective HPI/CC On Admission Date Seen by Provider: Apr 17, 2021 Time Seen by Provider: 08:45 Subjective/Events-last exam 04/17/2021: Patient doing well Low oxygen noted which appears to be ongoing to be rheumatoid lung issue Bowels moved 3 days ago will initiate laxatives Discharge planned on Thursday IV iron infusion tolerated 04/16/2021: Patient doing well UTI treated with Levaquin Awaiting microbiology urine culture Bowels are moving with laxatives Third dose of iron infusion 04/15/2021: Patient doing well Bowels moved after suppository and fleets Hemoglobin 8.4 White count 13.5 In and out cath obtained for urine since she does have chronic UTIs and she feels like she has 1 Levaquin is the only thing that works she reports 04/14/2021: Patient doing really well Trying to get Linzess started since she has chronic constipation issues Check meds and labs Pain is well controlled 04/13/2021: Patient doing well Updated her on the iron infusion and B12 injection Talked about hand surgeon consult Denies any new issues 04/12/2021: Patient doing well Diclofenac gel will be used on hands Updated her on x-ray results and Dr. Davis evaluation for thumbs not to be dislocated just RA severe changes he will see her as an outpatient Hemoglobin will be checked periodically to prevent phlebotomy Ordered iron 04/11/2021: Patient doing pretty well Hemoglobin 7.9 Oxygen at night used Hand x-rays reviewed with Dr. Davis who will see her as an outpatient Pain is pretty significant since she is on her third day status post hip fracture repair Checking iron Review of Systems General: Fatigue Objective Exam Vital Signs Vital Signs Date Time Temp Pulse Resp B/P (MAP) Pulse Ox O2 Delivery O2 Flow Rate FiO2 04/17/21 20:10 93 Room Air 04/17/21 20:06 36.7 96 19 127/72 (90) 04/15/21 07:03 1.50 Capillary Refill : Less Than 3 Seconds General Appearance: No Apparent Distress, WD/WN, Chronically ill HEENT: PERRL/EOMI, Normal ENT Inspection, Pharynx Normal Neck: Full Range of Motion, Normal Inspection, Non Tender, Supple, Carotid Bruit Respiratory: Chest Non Tender, Lungs Clear, Normal Breath Sounds, No Accessory Muscle Use, No Respiratory Distress Cardiovascular: Regular Rate, Rhythm, No Edema, No Gallop, No JVD, No Murmur Back: Normal Inspection, No CVA Tenderness, No Vertebral Tenderness Extremity: Normal Capillary Refill, Normal Inspection, Normal Range of Motion (Except left leg), Non Tender, No Calf Tenderness Neurologic/Psychiatric: Alert, Oriented x3, No Motor/Sensory Deficits, Normal Mood/Affect, Abnormal Gait, Motor Weakness (Generalized) Skin: Pallor (Patient states she has been anemic ) Results/Procedures Lab Patient resulted labs reviewed. FIM Transfers Therapy Code Descriptions/Definitions Functional [place] Measure: 0=Not Assessed/NA 4=Minimal Assistance 1=Total Assistance 5=Supervision or Setup 2=Maximal Assistance 6=Modified [place] 3=Moderate Assistance 7=Complete IndependenceSCALE: Activities may be completed with or without assistive devices. 6-Cbjqejrvpm-trwajju completes the activity by him/herself with no assistance from a helper. 5-Set-up or Clean-up Assistance-helper sets up or cleans up; patient completes activity. [place] assists only prior to or following the activity. 4-Supervision or Touching Assistance-helper provides verbal cues and/or touching/steadying and/or contact guard assistance as patient completes activit y. Assistance may be provided throughout the activity or intermittently. 3-Partial/Moderate Assistance-helper does LESS THAN HALF the effort. [place] lifts, holds or supports trunk or limbs, but provides less than half the effort. 2-Substantial/Maximal Assistance-helper does MORE THAN HALF the effort. [place] lifts or holds trunk or limbs and provides more than half the effort. 3-Fvgraluuw-ubspgg does ALL the effort. Patient does none of the effort to complete the activity. Or, the assistance of 2 or more helpers is required for the patient to complete the activity. If activity was not attempted, code reason: 7-Patient Refused. 9-Not Applicable-not attempted and the patient did not perform the activity before the current illness, exacerbation or injury. 10-Not Attempted due to Environmental Limitations-(lack of equipment, weather restraints, etc.). 88-Not Attempted due to Medical Conditions or Safety Concerns. Roll Left to Right (QC): 4 Sit to Lying (QC): 4 Sit to Stand (QC): 5 Chair/Ory-vy-Mujxk Xfer(QC): 4 Car Transfer (QC): 3 Gait Training Does the Patient Walk?: Yes Distance: 30' x2, 75', 150' Walk 10 feet (QC): 5 Walk 50 ft with 2 Turns(QC): 5 Walk 150 ft (QC): 5 Walking 10ft/uneven surface-QC: 4 Gait Persons Needed: 1 Gait Assistive Device: FWW Wheelchair Training Does the Pt Use a Wheelchair?: No Wheel 50 ft with 2 turns (QC): 9 Wheel 150 ft (QC): 9 Stair Training #of Steps: 1 1 Step (curb) (QC): 4 4 Steps (QC): 88 12 Steps (QC): 88 Balance Picking up an Object (QC): 88 ADL-Treatment Eating (QC): 5 (set up assistance. Pt able to use universal cuff to eat meals. Requires assistance opening containers and cutting food.) Oral Hygiene (QC): 4 (Pt performed task while standing w/ platform walker at SBA for safety.) Shower/Bathe Self (QC): 4 (Pt was able to wash all parts w/ a long handled sponge. Pt required CGA when standing to wash and dry backside for safety. ) Upper Body Dressing (QC): 6 (Pt was able to taniya/doff UB IND while seated.) Lower Body Dressing (QC): 4 (Pt was able to taniya/doff LB at SBA for safety while standing w/ platform walker during task, utilizing a dressing stick. ) On/Off Footwear (QC): 6 (Pt was able to taniya/doff footwear IND while seated w/ sock aide and dressing stick.) Toileting Hygiene (QC): 4 (SBA during stand for clothing management, pt able to perform hygiene. AE utilized PRN) Toilet Transfer (QC): 4 (Pt performed task at SBA for safety. ) Assessment/Plan Assessment and Plan Assess & Plan/Chief Complaint Assessment: Left hip fracture status post repair by Dr. 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 DAVIS as an outpatient Iron deficiency anemia giving iron infusions Vitamin B12 deficiency started on supplement Acute UTI history of UTIs started treatment 04/15/2021 Pseudomonas noted on urine culture Plan: Inpatient rehab protocol Supportive care Monitor pain Bowel regimen 04/11/2021: Monitor hemoglobin Check iron level Check B12 level 04/12/2021: Iron infusions Hemoglobin checks periodically 04/13/2021: Continue iron infusions Pain control Monitor closely 04/14/2021: Supportive care B12 and iron supplements Start Linzess 04/15/2021: Start Levaquin for UTI Supportive care Iron infusions 04/16/2021: UTI treatment Iron infusion 04/17/2021: Follow-up in urine culture it is Pseudomonas Discharge Thursday (1) Hip fracture LU VARGAS DO Apr 17, 2021 08:40
[2021-04-17] MEDS: DOCUSATE SODIUM 100 MG (COLACE) CAP PO SCH ×2 (09:08→21:45)
[2021-04-17] MEDS: HYDROXYCHLOROQUINE 200 MG (PLAQUENIL) TAB PO SCH ×2 (09:08→17:43)
[2021-04-17] MEDS: eZETimibe 10 MG (ZETIA) TABLET PO SCH (09:08)
[2021-04-17] MEDS: PHENAZOPYRIDINE 100 MG (PYRIDIUM) TABLET PO PRN ×3 (09:08→21:45)
[2021-04-17] MEDS: metFORMIN 500 MG (GLUCOPHAGE) TAB PO SCH ×2 (09:08→17:43)
[2021-04-17] MEDS: FOLIC ACID 1 MG TAB PO SCH (09:08)
[2021-04-17] MEDS: PANTOPRAZOLE 40 MG (PROTONIX) TAB PO SCH ×2 (09:08→21:45)
[2021-04-17] MEDS: ASPIRIN E.C. 81 MG (ECOTRIN) TAB PO SCH ×2 (09:08→21:45)
[2021-04-17] MEDS: MONTELUKAST 10 MG (SINGULAIR) TAB PO SCH (09:09)
[2021-04-17] MEDS: VITAMIN D3 25 MCG (1,000 UNITS) TABLET PO SCH (09:09)
[2021-04-17] MEDS: polyethylene glycoL POWDER 17 GM (MIRALAX) PACK PO SCH ×2 (09:09→21:43)
[2021-04-17] MEDS: SENNA W/DOCUSATE (SENOKOT S) TABLET PO SCH ×2 (09:09→21:46)
[2021-04-17 09:49] VITALS: BP 102/62
--- NOTE | 2021-04-17 10:04 | Physical Therapy Daily Note ---
PT Daily Note-Current Subjective Pt laying Supine in bed upon arrival. Pt declines need for BR and agrees to PT. Pain Location: No Pain Reported Mental Status Patient Orientation: Person, Place, Time, Situation Transfers SCALE: Activities may be completed with or without assistive devices. 8-Aecflwaglk-xfmtqnz completes the activity by him/herself with no assistance from a helper. 5-Set-up or Clean-up Assistance-helper sets up or cleans up; patient completes activity. [place] assists only prior to or following the activity. 4-Supervision or Touching Assistance-helper provides verbal cues and/or touching/steadying and/or contact guard assistance as patient completes activity. Assistance may be provided throughout the activity or intermittently. 3-Partial/Moderate Assistance-helper does LESS THAN HALF the effort. [place] lifts, holds or supports trunk or limbs, but provides less than half the effort. 2-Substantial/Maximal Assistance-helper does MORE THAN HALF the effort. [place] lifts or holds trunk or limbs and provides more than half the effort. 2-Xtxjbgkoy-qstbwc does ALL the effort. Patient does none of the effort to complete the activity. Or, the assistance of 2 or more helpers is required for the patient to complete the activity. If activity was not attempted, code reason: 7-Patient Refused. 9-Not Applicable-not attempted and the patient did not perform the activity before the current illness, exacerbation or injury. 10-Not Attempted due to Environmental Limitations-(lack of equipment, weather restraints, etc.). 88-Not Attempted due to Medical Conditions or Safety Concerns. Lying to Sitting/Side of Bed(Q: 6 Sit to Stand (QC): 6 Weight Bearing Left Lower Extremity: Left Weight Bearing/Tolerated Gait Training Does the Patient Walk?: Yes Distance: 150', 250' x2 Walk 10 feet (QC): 6 Walk 50 ft with 2 Turns(QC): 5 Walk 150 ft (QC): 5 Gait Persons Needed: 1 Gait Assistive Device: None Started walk w/B platform FWW but walked w/o AD again today to work on activity tolerance and balance. Wheelchair Training Does the Pt Use a Wheelchair?: No Stair Training Stair Training: Handrails/: 1 handrail #of Steps: 8 1 Step (curb) (QC): 6 4 Steps (QC): 5 Stairs: Pattern: Step to Exercises NuStep Minutes: 17 NuStep Workload: 5 Treatments TF from Supine to EOB to Standing. Declines need for BR. Pt amb. in hallway then uses NuStep before short RB. Pt amb. in hallway, taking RB during then amb. back to room. Pt rests in bed with all needs met, call light in hand. Assessment Current Status: Good Progress Pt is improving w/ambulation lele. w/o AD. Pt takes occasional RB as needed for fatigue. PT Short Term Goals Short Term Goals Time Frame: Apr 18, 2021 Roll Left & Right: 6 Sit to lyin Lying to sitting on side of be: 4 Sit to stand: 4 Walk 10 feet: 4 Walk 50 feet with two turns: 4 Walk 150 feet: 4 PT Retirement Goals Profile Saw Operator Goals PT Retirement Goals Time Frame: May 02, 2021 Roll Left & Right (QC): 6 Sit to Lying (QC): 6 Lying-Sitting on Side/Bed(QC): 6 Sit to Stand (QC): 6 Chair/Vib-eq-Jckzt Xfer(QC): 6 Toilet Transfer (QC): 6 Car Transfer (QC): 6 Does the Patient Walk: Yes Walk 10 feet (QC): 6 Walk 50ft with 2 Turns (QC): 6 Walk 150 ft (QC): 6 Walking 10ft on Uneven Surface: 6 1 Step (curb) (QC): 4 4 Steps (QC): 4 12 Steps (QC): 88 Picking up an Object (QC): 88 Wheel 50 feet with 2 turns (QC: 9 Wheel 150 feet: 9 PT Plan Problem List Problem List: Activity Tolerance Treatment/Plan Treatment Plan: Continue Plan of Care Treatment Plan: Bed Mobility, Education, Functional Activity Juan, Functional Strength, Group Therapy, Gait, Safety, Therapeutic Exercise, Transfers Treatment Duration: May 02, 2021 Frequency: At least 5 of 7 days/Wk (IRF) Estimated Hrs Per Day: 1.5 hours per day Patient and/or Family Agrees t: Yes Safety Risks/Education Patient Education: Gait Training, Correct Positioning, Safety Issues Teaching Recipient: Patient Teaching Methods: Discussion Response to Teaching: Verbalize Understanding Time/GCodes Time In: 800 Time Out: 900 Total Billed Treatment Time: 60 Total Billed Treatment 1, GT x2 (30m) & EX x2 (30m) JUAN A DOBSON HYDRAULICS TEACHER Apr 17, 2021 10:04
--- NOTE | 2021-04-17 10:12 | Occupational Ther Daily Note ---
OT Current Status-Daily Note Subjective Pt was sitting up in bed upon OT arrival. Pt stated she was ready to get ready for the day. Pt wanted to walk w/o platform walker, conversed w/ PT and made a professional decision to not utilize it during tx session. Pt daughter was present midway through tx session on this date. Mental Status/Objective Patient Orientation: Person, Place, Time, Situation ADL-Treatment Therapy Code Descriptions/Definitions Functional [place] Measure: 0=Not Assessed/NA 4=Minimal Assistance 1=Total Assistance 5=Supervision or Setup 2=Maximal Assistance 6=Modified [place] 3=Moderate Assistance 7=Complete IndependenceSCALE: Activities may be completed with or without assistive devices. 7-Ajlcmllncm-sopuptb completes the activity by him/herself with no assistance from a helper. 5-Set-up or Clean-up Assistance-helper sets up or cleans up; patient completes activity. [place] assists only prior to or following the activity. 4-Supervision or Touching Assistance-helper provides verbal cues and/or touching/steadying and/or contact guard assistance as patient completes activity. Assistance may be provided throughout the activity or intermittently. 3-Partial/Moderate Assistance-helper does LESS THAN HALF the effort. [place] lifts, holds or supports trunk or limbs, but provides less than half the effort. 2-Substantial/Maximal Assistance-helper does MORE THAN HALF the effort. [place] lifts or holds trunk or limbs and provides more than half the effort. 4-Exjfrpbti-mxqkio does ALL the effort. Patient does none of the effort to complete the activity. Or, the assistance of 2 or more helpers is required for the patient to complete the activity. If activity was not attempted, code reason: 7-Patient Refused. 9-Not Applicable-not attempted and the patient did not perform the activity before the current illness, exacerbation or injury. 10-Not Attempted due to Environmental Limitations-(lack of equipment, weather restraints, etc.). 88-Not Attempted due to Medical Conditions or Safety Concerns. Oral Hygiene (QC): 6 (Pt performed IND w/ task while seated in chair sink- side.) Shower/Bathe Self (QC): 4 (Pt was able to wash all parts, requried SBA when standing to wash backside and abe area for safety.) Upper Body Dressing (QC): 6 (Pt performed IND w/ task.) Lower Body Dressing (QC): 4 (Pt performed at SBA for clothing management w/ task. ) On/Off Footwear: 6 (Pt performed IND w/ task utilizing sock aide w/ hand palming motions. ) Toileting Hygiene (QC): 4 (Pt performed task SBA w/ grab bars and over toilet commode. ) Toilet Transfer (QC): 4 (Pt performed at A utilizing grab bars.) Other Treatment Pt was sitting up in bed upon OT arrival. Pt stated she was ready to get ready for the day. Pt wanted to walk w/o platform walker, conversed w/ PT and made a professional decision to not utilize it during tx session. Pt daughter was present midway through tx session on this date. Pt performed bed mobility from sitting upright in bed to EOB IND. Pt transferred from EOB to closet to retrieve clothing, from closet to toilet, toilet to shower bench, shower bench to chair sink side for grooming at A w/ no platform walker utilized. Pt performed toileting task, doffing/donning UB/LB, showering, and oral hygiene tasks, see above QC's for scores. Pt performed functional mobility from chair sink side to chair in room, then from chiar to chair sink side. Post tx session, pt was instructed to press call light when wanting to ambulate in room, seated in chair sink side, all needs met. Education OT Patient Education: Energy conservation, Modified ADL techniques, Progress toward Goal/Update tx plan, Purpose of tx/functional activities, Transfer techniques, Use of adapted equipment Teaching Recipient: Patient, Family Teaching Methods: Discussion Response to Teaching: Verbalize Understanding OT Short Term Goals Short Term Goals Time Frame: Apr 19, 2021 Toileting hygiene: 4 Shower/bathe self: 4 Lower body dressin Putting on/taking off footwear: 4 OT Intermediate Goals Machine Bender Goals Time Frame: May 03, 2021 Eating (QC): 6 Oral Hygiene (QC): 6 Toileting Hygiene (QC): 6 Shower/Bathe Self (QC): 6 Upper Body Dressing (QC): 6 Lower Body Dressing (QC): 6 On/Off Footwear (QC): 6 Additional Goals: 1-Demonstrate ADL Tasks, 2-Verbalize Understanding, 3- ImproveStrength/Juan 1=Demonstrate adherence to instructed precautions during ADL tasks. 2=Patient will verbalize/demonstrate understanding of assistive devices/modifications for ADL. 3=Patient will improve strength/tolerance for activity to enable patient to perform ADL's. OT Education/Plan Problem List/Assessment Assessment: Decreased UE Strength, Impaired I ADL's, Impaired Self-Care Skills Discharge Recommendations Plan/Recommendations: Continue POC Treatment Plan/Plan of Care Patient would benefit from OT for education, treatment and training to promote independence in ADL's, mobility, safety and/or upper extremity function for ADL's. Plan of Care: ADL Retraining, Functional Mobility, Group Exercise/Act as Ind, UE Funct Exercise/Act Treatment Duration: May 03, 2021 Frequency: At least 5 of 7 days/Wk (IRF) Estimated Hrs Per Day: 1.5 hours per day Rehab Potential: Fair Time/GCodes Start Time: 09:00 Stop Time: 10:00 Total Time Billed (hr/min): 60 Billed Treatment Time 1 Visit, ADL 4 SARAN RODRIGUEZ OT Apr 17, 2021 10:12
[2021-04-17] MEDS ORDERED: BISA-65 PO (13:42)
[2021-04-17] MEDS ORDERED: POLY17PO6 PO (13:42)
[2021-04-17] MEDS ORDERED: DOCU100T7 PO (13:42)
--- NOTE | 2021-04-17 14:12 | Physical Therapy Daily Note ---
PT Daily Note-Current Subjective Pt laying Supine in bed visiting w/daughter upon arrival. Pt agrees to PT. Pain Location: No Pain Reported Mental Status Patient Orientation: Person, Place, Time, Situation Transfers SCALE: Activities may be completed with or without assistive devices. 1-Qjiqgawzim-yyceyde completes the activity by him/herself with no assistance from a helper. 5-Set-up or Clean-up Assistance-helper sets up or cleans up; patient completes activity. [place] assists only prior to or following the activity. 4-Supervision or Touching Assistance-helper provides verbal cues and/or touching/steadying and/or contact guard assistance as patient completes activity. Assistance may be provided throughout the activity or intermittently. 3-Partial/Moderate Assistance-helper does LESS THAN HALF the effort. [place] lifts, holds or supports trunk or limbs, but provides less than half the effort. 2-Substantial/Maximal Assistance-helper does MORE THAN HALF the effort. [place] lifts or holds trunk or limbs and provides more than half the effort. 7-Ukswiudsr-rvkkcy does ALL the effort. Patient does none of the effort to complete the activity. Or, the assistance of 2 or more helpers is required for the patient to complete the activity. If activity was not attempted, code reason: 7-Patient Refused. 9-Not Applicable-not attempted and the patient did not perform the activity before the current illness, exacerbation or injury. 10-Not Attempted due to Environmental Limitations-(lack of equipment, weather restraints, etc.). 88-Not Attempted due to Medical Conditions or Safety Concerns. Lying to Sitting/Side of Bed(Q: 6 Sit to Stand (QC): 6 Toilet Transfer (QC): 6 Weight Bearing Left Lower Extremity: Left Weight Bearing/Tolerated Gait Training Does the Patient Walk?: Yes Distance: 250' Walk 10 feet (QC): 6 Walk 50 ft with 2 Turns(QC): 6 Walk 150 ft (QC): 5 Gait Persons Needed: 1 Gait Assistive Device: None Wheelchair Training Does the Pt Use a Wheelchair?: No Treatments TF to standing and amb. to BR. Pt amb. in hallway. Pt is made Ad tarun in room due to improved balance, although still asking for B platform FWW for extended distances. FITTING ROOM SUPERVISOR gives pt educ. to pt & daughter over Ad tarun in room and progress made as well as continued Therapy and to check w/surgeon for any restrictions that they may have (ie. driving, etc). Pt resting in room awaiting OT tx. All needs met, call light next to pt. Assessment Current Status: Good Progress Pt & FITTING ROOM SUPERVISOR advising daughter of progress made. Pt TF to standing to use BR. Pt amb. in hallway w/o AD with FITTING ROOM SUPERVISOR & pt's daughter. Pt returns to room at end of tx so OT can start tx. All needs met. Pt is made Ad tarun in room. PT Short Term Goals Short Term Goals Time Frame: Apr 18, 2021 Roll Left & Right: 6 Sit to lyin Lying to sitting on side of be: 4 Sit to stand: 4 Walk 10 feet: 4 Walk 50 feet with two turns: 4 Walk 150 feet: 4 PT [employer]iztalk Consultant Goals Prison Goals PT Prison Goals Time Frame: May 02, 2021 Roll Left & Right (QC): 6 Sit to Lying (QC): 6 Lying-Sitting on Side/Bed(QC): 6 Sit to Stand (QC): 6 Chair/Jlr-ob-Pnfjd Xfer(QC): 6 Toilet Transfer (QC): 6 Car Transfer (QC): 6 Does the Patient Walk: Yes Walk 10 feet (QC): 6 Walk 50ft with 2 Turns (QC): 6 Walk 150 ft (QC): 6 Walking 10ft on Uneven Surface: 6 1 Step (curb) (QC): 4 4 Steps (QC): 4 12 Steps (QC): 88 Picking up an Object (QC): 88 Wheel 50 feet with 2 turns (QC: 9 Wheel 150 feet: 9 PT Plan Problem List Problem List: Activity Tolerance Occasional rest break needed. Treatment/Plan Treatment Plan: Continue Plan of Care Treatment Plan: Bed Mobility, Education, Functional Activity Juan, Functional Strength, Group Therapy, Gait, Safety, Therapeutic Exercise, Transfers Treatment Duration: May 02, 2021 Frequency: At least 5 of 7 days/Wk (IRF) Estimated Hrs Per Day: 1.5 hours per day Patient and/or Family Agrees t: Yes Safety Risks/Education Patient Education: Gait Training, Correct Positioning, Safety Issues Teaching Recipient: Patient, Family Teaching Methods: Discussion Response to Teaching: Verbalize Understanding Time/GCodes Time In: 1330 Time Out: 1400 Total Billed Treatment Time: 30 Total Billed Treatment 1, FA (15m) & GT (15m) JUAN A DOBSON FITTING ROOM SUPERVISOR Apr 17, 2021 14:12
--- NOTE | 2021-04-17 15:04 | Occupational Ther Daily Note ---
OT Current Status-Daily Note Subjective Pt was seated in chair upon OT arrival. Pt's daughter was in room and left right when we began tx session. Pt was in good spirits and was ready for her afternoon tx session. Mental Status/Objective Patient Orientation: Person, Place, Time, Situation ADL-Treatment Therapy Code Descriptions/Definitions Functional [place] Measure: 0=Not Assessed/NA 4=Minimal Assistance 1=Total Assistance 5=Supervision or Setup 2=Maximal Assistance 6=Modified [place] 3=Moderate Assistance 7=Complete IndependenceSCALE: Activities may be completed with or without assistive devices. 9-Mooqfdrcrv-yexfdll completes the activity by him/herself with no assistance from a helper. 5-Set-up or Clean-up Assistance-helper sets up or cleans up; patient completes activity. [place] assists only prior to or following the activity. 4-Supervision or Touching Assistance-helper provides verbal cues and/or touching/steadying and/or contact guard assistance as patient completes activity. Assistance may be provided throughout the activity or intermittently. 3-Partial/Moderate Assistance-helper does LESS THAN HALF the effort. [place] lifts, holds or supports trunk or limbs, but provides less than half the effort. 2-Substantial/Maximal Assistance-helper does MORE THAN HALF the effort. [place] lifts or holds trunk or limbs and provides more than half the effort. 1-Rfozquqgc-zcznnl does ALL the effort. Patient does none of the effort to complete the activity. Or, the assistance of 2 or more helpers is required for the patient to complete the activity. If activity was not attempted, code reason: 7-Patient Refused. 9-Not Applicable-not attempted and the patient did not perform the activity before the current illness, exacerbation or injury. 10-Not Attempted due to Environmental Limitations-(lack of equipment, weather restraints, etc.). 88-Not Attempted due to Medical Conditions or Safety Concerns. Other Treatment Pt was seated in chair upon OT arrival. Pt's daughter was in room and left right when we began tx session. Pt was in good spirits and was ready for her afternoon tx session. Pt wanted to wash her personal laundry. Pt performed functional mobility from room to therapy laundry room, therapy laundry room to therapy gym, therapy gym to bed at [facility], no platform walker was utilized. Pt performed laundry activity, placing dirty clothes into washer one at a time and starting the load. In the gym pt participated in a balloon activity while seated in chair to support wrist flexion/extension, finger flexion/extension, crossing midline, sitting balance, cognition, UB strength and endurance for ADL's: Activity 1: Hitting balloon with R hand. Activity 2: Hitting balloon with L hand. Activity 3: Catching balloon and tossing back. Activity 4: Catching balloon overhead and tossing back. Post tx session, pt was seated in bed for an afternoon nap, call light in reach, and all needs met. Education OT Patient Education: Energy conservation, Modified ADL techniques, Progress toward Goal/Update tx plan, Purpose of tx/functional activities, Safety issues, Use of adapted equipment Teaching Recipient: Patient Teaching Methods: Demonstration, Discussion Response to Teaching: Verbalize Understanding, Return Demonstration OT Short Term Goals Short Term Goals Time Frame: Apr 19, 2021 Toileting hygiene: 4 Shower/bathe self: 4 Lower body dressin Putting on/taking off footwear: 4 OT Halfway Goals Flat Surfacer Jewel Goals Time Frame: May 03, 2021 Eating (QC): 6 Oral Hygiene (QC): 6 Toileting Hygiene (QC): 6 Shower/Bathe Self (QC): 6 Upper Body Dressing (QC): 6 Lower Body Dressing (QC): 6 On/Off Footwear (QC): 6 Additional Goals: 1-Demonstrate ADL Tasks, 2-Verbalize Understanding, 3- ImproveStrength/Juan 1=Demonstrate adherence to instructed precautions during ADL tasks. 2=Patient will verbalize/demonstrate understanding of assistive devices/modifications for ADL. 3=Patient will improve strength/tolerance for activity to enable patient to perform ADL's. OT Education/Plan Problem List/Assessment Assessment: Decreased Activ Tolerance, Decreased UE Strength, Impaired I ADL's, Impaired Self-Care Skills Discharge Recommendations Plan/Recommendations: Continue POC Treatment Plan/Plan of Care Patient would benefit from OT for education, treatment and training to promote independence in ADL's, mobility, safety and/or upper extremity function for ADL's. Plan of Care: ADL Retraining, Functional Mobility, Group Exercise/Act as Ind, UE Funct Exercise/Act Treatment Duration: May 03, 2021 Frequency: At least 5 of 7 days/Wk (IRF) Estimated Hrs Per Day: 1.5 hours per day Rehab Potential: Fair Time/GCodes Start Time: 14:00 Stop Time: 14:30 Total Time Billed (hr/min): 30 Billed Treatment Time 1 Visit, ADL (15'), FA (15') SARAN RODRIGUEZ OT Apr 17, 2021 15:03
[2021-04-17 20:06] VITALS: BP 127/72
[2021-04-17] MEDS: rOPINIRole 0.25 MG (REQUIP) TAB PO SCH (21:45)
[2021-04-17] MEDS: ZOLPIDEM 5 MG (AMBIEN) TAB PO PRN (21:45)
[2021-04-17] MEDS: AMITRIPTYLINE 50 MG (ELAVIL) TAB PO SCH (21:46)
[2021-04-18] MEDS: PREGABALIN 75 MG (LYRICA) CAP PO SCH ×3 (06:39→21:59)
[2021-04-18] MEDS: LEVOTHYROXINE 75 MCG (LEVOTHROID) TABLET PO SCH (06:39)
[2021-04-18] MEDS: CYANOCOBALAMIN 1,000 MCG (VITAMIN B-12) TABLET PO SCH (06:39)
[2021-04-18] MEDS: MELOXICAM 7.5 MG (MOBIC) TABLET PO SCH ×2 (06:39→17:42)
[2021-04-18] MEDS: CATHETER FLUSH 10 ML SYR IV SCH ×3 (06:40→23:08)
[2021-04-18 08:20] VITALS: BP 113/64
[2021-04-18] MEDS: eZETimibe 10 MG (ZETIA) TABLET PO SCH (08:24)
[2021-04-18] MEDS: VITAMIN D3 25 MCG (1,000 UNITS) TABLET PO SCH (08:24)
[2021-04-18] MEDS: SENNA W/DOCUSATE (SENOKOT S) TABLET PO SCH ×2 (08:24→21:59)
[2021-04-18] MEDS: PHENAZOPYRIDINE 100 MG (PYRIDIUM) TABLET PO PRN (08:24)
[2021-04-18] MEDS: FOLIC ACID 1 MG TAB PO SCH (08:24)
[2021-04-18] MEDS: polyethylene glycoL POWDER 17 GM (MIRALAX) PACK PO SCH ×2 (08:24→21:59)
[2021-04-18] MEDS: metFORMIN 500 MG (GLUCOPHAGE) TAB PO SCH ×2 (08:24→17:42)
[2021-04-18] MEDS: ASPIRIN E.C. 81 MG (ECOTRIN) TAB PO SCH ×2 (08:24→21:59)
[2021-04-18] MEDS: MONTELUKAST 10 MG (SINGULAIR) TAB PO SCH (08:24)
[2021-04-18] MEDS: HYDROXYCHLOROQUINE 200 MG (PLAQUENIL) TAB PO SCH ×2 (08:24→17:42)
[2021-04-18] MEDS: DOCUSATE SODIUM 100 MG (COLACE) CAP PO SCH ×2 (08:24→21:59)
[2021-04-18] MEDS: PANTOPRAZOLE 40 MG (PROTONIX) TAB PO SCH ×2 (08:24→21:59)
[2021-04-18] MEDS: IRON SUCROSE 200 MG/10 ML (VENOFER) VIAL IV SCH (08:24)
--- NOTE | 2021-04-18 10:37 | Occupational Ther Daily Note ---
OT Current Status-Daily Note Subjective Pt was sitting up in bed upon OT arrival. Pt stated she wanted to perform grooming tasks sink side and would then be ready for tx session. Mental Status/Objective Patient Orientation: Person, Place, Time, Situation ADL-Treatment Therapy Code Descriptions/Definitions Functional [place] Measure: 0=Not Assessed/NA 4=Minimal Assistance 1=Total Assistance 5=Supervision or Setup 2=Maximal Assistance 6=Modified [place] 3=Moderate Assistance 7=Complete IndependenceSCALE: Activities may be completed with or without assistive devices. 7-Bavhyyhglz-uylpbaz completes the activity by him/herself with no assistance from a helper. 5-Set-up or Clean-up Assistance-helper sets up or cleans up; patient completes activity. [place] assists only prior to or following the activity. 4-Supervision or Touching Assistance-helper provides verbal cues and/or touching/steadying and/or contact guard assistance as patient completes acti vity. Assistance may be provided throughout the activity or intermittently. 3-Partial/Moderate Assistance-helper does LESS THAN HALF the effort. [place] lifts, holds or supports trunk or limbs, but provides less than half the effort. 2-Substantial/Maximal Assistance-helper does MORE THAN HALF the effort. [place] lifts or holds trunk or limbs and provides more than half the effort. 5-Lpfbzywls-canwnw does ALL the effort. Patient does none of the effort to complete the activity. Or, the assistance of 2 or more helpers is required for the patient to complete the activity. If activity was not attempted, code reason: 7-Patient Refused. 9-Not Applicable-not attempted and the patient did not perform the activity before the current illness, exacerbation or injury. 10-Not Attempted due to Environmental Limitations-(lack of equipment, weather restraints, etc.). 88-Not Attempted due to Medical Conditions or Safety Concerns. Oral Hygiene (QC): 6 (Pt performed IND while standing sink side during task.) Other Treatment Pt was sitting up in bed upon OT arrival. Pt stated she wanted to perform groom tasks sink side and would then be ready for tx session. Pt performed bed mobility from sitting to sitting EOB, transferred EOB to standing, and functional mobility from bedside to sink, IND with all. Pt then performed grooming and oral care sink side while standing, see above QC. Pt performed functional mobility from sink to therapy kitchen. Pt performed w/ 1lb weighted wrist weights, x2 rounds, retrieving cone activity where x6 cones were hidden all over in the kitchen area to support functional mobility, UE ROM, bending waistline, core strengthening and endurance for ADL's. Pt located all cones independently. Pt performed functional mobility from therapy kitchen to therapy gym. Pt then participated in a bridges bag activity w/ 1lb weighted wrist weights, x2 rounds, consisting of x9 bags, while standing, reaching across midline, w/ rest breaks between each to support crossing midline, core strengthening, UE ROM, : Activity 1: Toss bridges bag underhanded at basket located on floor level w/ L hand. Activity 2: Toss bridges bag underhanded at basket located on floor level w/ R hand. Activity 3: Toss bridges bag overhanded at basket located on elevated tabletop surface w/ L hand. Activity 4: Toss bridges bag overhanded at basket located on elevated tabletop surface w/ R hand. Pt performed functional mobility from therapy gym to therapy kitchen to retrieve a "Coke", then to room seated in chair. Post tx session, pt was seated in chair, call light in reach, and all needs met. Education OT Patient Education: Correct positioning, Energy conservation, Modified ADL techniques, Progress toward Goal/Update tx plan, Purpose of tx/functional activities, Safety issues, Transfer techniques, Use of adapted equipment Teaching Recipient: Patient Teaching Methods: Demonstration, Discussion Response to Teaching: Verbalize Understanding, Return Demonstration OT Short Term Goals Short Term Goals Time Frame: Apr 19, 2021 Toileting hygiene: 4 Shower/bathe self: 4 Lower body dressin Putting on/taking off footwear: 4 OT [facility] Goals Percussion Tuner Goals Time Frame: May 03, 2021 Eating (QC): 6 Oral Hygiene (QC): 6 Toileting Hygiene (QC): 6 Shower/Bathe Self (QC): 6 Upper Body Dressing (QC): 6 Lower Body Dressing (QC): 6 On/Off Footwear (QC): 6 Additional Goals: 1-Demonstrate ADL Tasks, 2-Verbalize Understanding, 3- ImproveStrength/Juan 1=Demonstrate adherence to instructed precautions during ADL tasks. 2=Patient will verbalize/demonstrate understanding of assistive devices/mo difications for ADL. 3=Patient will improve strength/tolerance for activity to enable patient to perform ADL's. OT Education/Plan Problem List/Assessment Assessment: Decreased Activ Tolerance, Decreased UE Strength, Impaired I ADL's, Impaired Self-Care Skills, Restricted Funct UE ROM Discharge Recommendations Plan/Recommendations: Continue POC Treatment Plan/Plan of Care Patient would benefit from OT for education, treatment and training to promote independence in ADL's, mobility, safety and/or upper extremity function for ADL's. Plan of Care: ADL Retraining, Functional Mobility, Group Exercise/Act as Ind, UE Funct Exercise/Act Treatment Duration: May 03, 2021 Frequency: At least 5 of 7 days/Wk (IRF) Estimated Hrs Per Day: 1.5 hours per day Rehab Potential: Fair Time/GCodes Start Time: 09:30 Stop Time: 10:30 Total Time Billed (hr/min): 60 Billed Treatment Time 1 Visit, ADL 2 (30'), FA 2 (30') SARAN RODRIGUEZ OT Apr 18, 2021 10:37
[2021-04-18] MEDS ORDERED: PATIENT MAY USE OWN MED,SINGLE MED PO SCH (11:30)
--- NOTE | 2021-04-18 11:44 | PM&R Progress Note ---
Subjective HPI/CC On Admission Date Seen by Provider: Apr 18, 2021 Time Seen by Provider: 11:00 Subjective/Events-last exam 04/18/2021: Patient doing very well Wants to try Linzess Samples obtained she will try it today Discharge plan for Thursday Lost IV will replace to give 1 last dose of iron Will need labs done in 2 weeks 04/17/2021: Patient doing well Low oxygen noted which appears to be ongoing to be rheumatoid lung issue Bowels moved 3 days ago will initiate laxatives Discharge planned on Thursday IV iron infusion tolerated 04/16/2021: Patient doing well UTI treated with Levaquin Awaiting microbiology urine culture Bowels are moving with laxatives Third dose of iron infusion 04/15/2021: Patient doing well Bowels moved after suppository and fleets Hemoglobin 8.4 White count 13.5 In and out cath obtained for urine since she does have chronic UTIs and she feels like she has 1 Levaquin is the only thing that works she reports 04/14/2021: Patient doing really well Trying to get Linzess started since she has chronic constipation issues Check meds and labs Pain is well controlled 04/13/2021: Patient doing well Updated her on the iron infusion and B12 injection Talked about hand surgeon consult Denies any new issues 04/12/2021: Patient doing well Diclofenac gel will be used on hands Updated her on x-ray results and Dr. Davis evaluation for thumbs not to be dislocated just RA severe changes he will see her as an outpatient Hemoglobin will be checked periodically to prevent phlebotomy Ordered iron 04/11/2021: Patient doing pretty well Hemoglobin 7.9 Oxygen at night used Hand x-rays reviewed with Dr. Davis who will see her as an outpatient Pain is pretty significant since she is on her third day status post hip fracture repair Checking iron Review of Systems General: Fatigue Musculoskeletal: leg pain Objective Exam Vital Signs Vital Signs Date Time Temp Pulse Resp B/P (MAP) Pulse Ox O2 Delivery O2 Flow Rate FiO2 04/18/21 20:40 Room Air 04/18/21 20:00 37.2 87 16 120/71 (87) 90 04/15/21 07:03 1.50 Capillary Refill : Less Than 3 Seconds General Appearance: No Apparent Distress, WD/WN, Chronically ill HEENT: PERRL/EOMI, Normal ENT Inspection, Pharynx Normal Neck: Full Range of Motion, Normal Inspection, Non Tender, Supple, Carotid Bruit Respiratory: Chest Non Tender, Lungs Clear, Normal Breath Sounds, No Accessory Muscle Use, No Respiratory Distress Cardiovascular: Regular Rate, Rhythm, No Edema, No Gallop, No JVD, No Murmur Back: Normal Inspection, No CVA Tenderness, No Vertebral Tenderness Extremity: Normal Capillary Refill, Normal Inspection, Normal Range of Motion (Except left leg), Non Tender, No Calf Tenderness Neurologic/Psychiatric: Alert, Oriented x3, No Motor/Sensory Deficits, Normal Mood/Affect, Abnormal Gait, Motor Weakness (Generalized) Skin: Pallor (Patient states she has been anemic ) Results/Procedures Lab Patient resulted labs reviewed. FIM Transfers Therapy Code Descriptions/Definitions Functional [place] Measure: 0=Not Assessed/NA 4=Minimal Assistance 1=Total Assistance 5=Supervision or Setup 2=Maximal Assistance 6=Modified [place] 3=Moderate Assistance 7=Complete IndependenceSCALE: Activities may be completed with or without assistive devices. 3-Cuvtxwhxai-zmwnijy completes the activity by him/herself with no assistance from a helper. 5-Set-up or Clean-up Assistance-helper sets up or cleans up; patient completes activity. [place] assists only prior to or following the activity. 4-Supervision or Touching Assistance-helper provides verbal cues and/or touching/steadying and/or contact guard assistance as patient completes activity. Assistance may be provided throughout the activity or intermittently. 3-Partial/Moderate Assistance-helper does LESS THAN HALF the effort. [place] lifts, holds or supports trunk or limbs, but provides less than half the effort. 2-Substantial/Maximal Assistance-helper does MORE THAN HALF the effort. [place] lifts or holds trunk or limbs and provides more than half the effort. 3-Qjtsniadr-qgzbjg does ALL the effort. Patient does none of the effort to complete the activity. Or, the assistance of 2 or more helpers is required for the patient to complete the activity. If activity was not attempted, code reason: 7-Patient Refused. 9-Not Applicable-not attempted and the patient did not perform the activity before the current illness, exacerbation or injury. 10-Not Attempted due to Environmental Limitations-(lack of equipment, weather restraints, etc.). 88-Not Attempted due to Medical Conditions or Safety Concerns. Roll Left to Right (QC): 4 Sit to Lying (QC): 4 Sit to Stand (QC): 6 Chair/Pkp-ni-Swyrl Xfer(QC): 4 Car Transfer (QC): 3 Gait Training Does the Patient Walk?: Yes Distance: 250' Walk 10 feet (QC): 6 Walk 50 ft with 2 Turns(QC): 6 Walk 150 ft (QC): 5 Walking 10ft/uneven surface-QC: 4 Gait Persons Needed: 1 Gait Assistive Device: None Wheelchair Training Does the Pt Use a Wheelchair?: No Wheel 50 ft with 2 turns (QC): 9 Wheel 150 ft (QC): 9 Stair Training Stair Training: Handrails/: 1 handrail #of Steps: 8 1 Step (curb) (QC): 6 4 Steps (QC): 5 12 Steps (QC): 88 Stairs: Pattern: Step to Balance Picking up an Object (QC): 88 ADL-Treatment Eating (QC): 5 (set up assistance. Pt able to use universal cuff to eat meals. Requires assistance opening containers and cutting food.) Oral Hygiene (QC): 6 (Pt performed IND while standing sink side during task.) Shower/Bathe Self (QC): 4 (Pt was able to wash all parts, requried SBA when standing to wash backside and abe area for safety.) Upper Body Dressing (QC): 6 (Pt performed IND w/ task.) Lower Body Dressing (QC): 4 (Pt performed at SBA for clothing management w/ task. ) On/Off Footwear (QC): 6 (Pt performed IND w/ task utilizing sock aide w/ hand palming motions. ) Toileting Hygiene (QC): 4 (Pt performed task SBA w/ grab bars and over toilet commode. ) Toilet Transfer (QC): 4 (Pt performed at SBA utilizing grab bars.) Assessment/Plan Assessment and Plan Assess & Plan/Chief Complaint Assessment: Left hip fracture status post repair by Dr. 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 DAVIS as an outpatient Iron deficiency anemia giving iron infusions Vitamin B12 deficiency started on supplement Acute UTI history of UTIs started treatment 04/15/2021 Pseudomonas noted on urine culture Plan: Inpatient rehab protocol Supportive care Monitor pain Bowel regimen 04/11/2021: Monitor hemoglobin Check iron level Check B12 level 04/12/2021: Iron infusions Hemoglobin checks periodically 04/13/2021: Continue iron infusions Pain control Monitor closely 04/14/2021: Supportive care B12 and iron supplements Start Linzess 04/15/2021: Start Levaquin for UTI Supportive care Iron infusions 04/16/2021: UTI treatment Iron infusion 04/17/2021: Follow-up in urine culture it is Pseudomonas Discharge Thursday04/18/2021: Supportive care Levaquin for UTI Labs due in 2 weeks Try Linzess (1) Hip fracture LU VARGAS DO Apr 18, 2021 11:44
[2021-04-18] MEDS ORDERED: ADAL80PE2 SQ (12:08)
[2021-04-18] MEDS ORDERED: TRAM50TA3 PO (12:08)
[2021-04-18] MEDS ORDERED: PHEN-826 PO (12:08)
[2021-04-18] MEDS ORDERED: LACT20SO2 PO (12:08)
[2021-04-18] MEDS ORDERED: LINA290C PO (12:08)
[2021-04-18] MEDS ORDERED: BISA-65 PO (12:08)
[2021-04-18] MEDS ORDERED: HYDR200T46 PO (12:08)
[2021-04-18] MEDS ORDERED: MELO7.5T46 PO (12:08)
[2021-04-18] MEDS ORDERED: SENN1TAB76 PO (12:08)
[2021-04-18] MEDS ORDERED: ASPI-1238 PO (12:08)
[2021-04-18] MEDS ORDERED: METH25VI15 IJ (12:08)
[2021-04-18] MEDS ORDERED: LEUC5TAB PO (12:08)
[2021-04-18] MEDS ORDERED: DICL100G13 TOP (12:08)
[2021-04-18] MEDS ORDERED: CYAN-41 PO (12:08)
[2021-04-18] MEDS ORDERED: LEVO750T39 PO (12:08)
--- NOTE | 2021-04-18 12:15 | Physical Therapy Daily Note ---
PT Daily Note-Current Subjective Pt sitting in recliner upon arrival. Pt agrees to PT. Pt reports excited and feels good about dc for Thursday. Pain Location: No Pain Reported Mental Status Patient Orientation: Person, Place, Time, Situation Transfers SCALE: Activities may be completed with or without assistive devices. 5-Ivswvmsyok-czegdyp completes the activity by him/herself with no assistance from a helper. 5-Set-up or Clean-up Assistance-helper sets up or cleans up; patient completes activity. [place] assists only prior to or following the activity. 4-Supervision or Touching Assistance-helper provides verbal cues and/or touching/steadying and/or contact guard assistance as patient completes activity. Assistance may be provided throughout the activity or intermittently. 3-Partial/Moderate Assistance-helper does LESS THAN HALF the effort. [place] lifts, holds or supports trunk or limbs, but provides less than half the effort. 2-Substantial/Maximal Assistance-helper does MORE THAN HALF the effort. [place] lifts or holds trunk or limbs and provides more than half the effort. 2-Qgvpfvdfu-ptatoo does ALL the effort. Patient does none of the effort to complete the activity. Or, the assistance of 2 or more helpers is required for the patient to complete the activity. If activity was not attempted, code reason: 7-Patient Refused. 9-Not Applicable-not attempted and the patient did not perform the activity before the current illness, exacerbation or injury. 10-Not Attempted due to Environmental Limitations-(lack of equipment, weather restraints, etc.). 88-Not Attempted due to Medical Conditions or Safety Concerns. Sit to Stand (QC): 6 Toilet Transfer (QC): 6 Weight Bearing Left Lower Extremity: Left Weight Bearing/Tolerated Gait Training Does the Patient Walk?: Yes Walk 10 feet (QC): 6 Walk 50 ft with 2 Turns(QC): 6 Walk 150 ft (QC): 6 Gait Persons Needed: 0 Gait Assistive Device: None Wheelchair Training Does the Pt Use a Wheelchair?: No Treatments Pt sitting in recliner upon arrival. Pt is able to toilet independently as well as is Ad tarun in room (can move around room as need w/o assistance). Pt discusses getting B platform FWW before dc. Declines need for toilet riser or hip kit at this time and will obtain if needed after dc as they are self pay items. Pt reports feeling comfortable with walking w/ & w/o FWW, completing stairs and HEP given to pt by therapist. Pt resting in recliner at end of tx with all needs met, call light in hand. Assessment Current Status: Excellent Progress Pt is Ad tarun in room and is able to toilet self. Pt has made great progress with both independence & safety of tasks. PT Short Term Goals Short Term Goals Time Frame: Apr 18, 2021 Roll Left & Right: 6 Sit to lyin Lying to sitting on side of be: 4 Sit to stand: 4 Walk 10 feet: 4 Walk 50 feet with two turns: 4 Walk 150 feet: 4 PT Mcfp Goals Mcfp Goals PT Mcfp Goals Time Frame: May 02, 2021 Roll Left & Right (QC): 6 Sit to Lying (QC): 6 Lying-Sitting on Side/Bed(QC): 6 Sit to Stand (QC): 6 Chair/Tpe-up-Qijya Xfer(QC): 6 Toilet Transfer (QC): 6 Car Transfer (QC): 6 Does the Patient Walk: Yes Walk 10 feet (QC): 6 Walk 50ft with 2 Turns (QC): 6 Walk 150 ft (QC): 6 Walking 10ft on Uneven Surface: 6 1 Step (curb) (QC): 4 4 Steps (QC): 4 12 Steps (QC): 88 Picking up an Object (QC): 88 Wheel 50 feet with 2 turns (QC: 9 Wheel 150 feet: 9 PT Plan Problem List Problem List: Activity Tolerance Treatment/Plan Treatment Plan: Continue Plan of Care Treatment Plan: Bed Mobility, Education, Functional Activity Juan, Functional Strength, Group Therapy, Gait, Safety, Therapeutic Exercise, Transfers Treatment Duration: May 02, 2021 Frequency: At least 5 of 7 days/Wk (IRF) Estimated Hrs Per Day: 1.5 hours per day Patient and/or Family Agrees t: Yes Time/GCodes Time In: 1100 Time Out: 1200 Total Billed Treatment Time: 60 Total Billed Treatment 1, FA x4 (60m) JUAN A DOBSON HIGH SCALER Apr 18, 2021 12:15
[2021-04-18] MEDS: LINZESS 290 MCG CAPSULE PO SCH (14:03)
--- NOTE | 2021-04-18 14:53 | Therapy Group Daily Note ---
Therapy Daily Group Note Patient Education Topic Exercises, Other List Below (Nutrition & Exercises) Exercises LE Seated Exercise, UE Exercise Session Ratio (pt:therapist): 4:1 Goal of Session: Education on ARU Expectations, UE/LE Strengthing Goal Met for this Session: Yes Pt Benefit of Group: Contributions to Others, F/U Use of Strategies @Home, Increased Functional Safety, Increased Functional Strength, Improved Cognition, Recognition of Peers, Socialization Other/Notes Pt ambulated to [facility] for OT/PT group. Group consisted of introductions (name, place living, favorite fall therapy), socialization, seated UE/LE exercises, and educational topics involving nutrition, exercise. Pt introduced self appropriately, actively listened to peers and complete B UE/LE seated exercises. Pt acknowledged understanding by verbalizing understanding and giving personal stories. Pt participated in a multiple choice question/answer session about educational topics. After session, pt sitting in recliner. Call light/phone in reach. All needs met in room. Start Time: 13:00 Stop Time: 14:00 Total Billed Treatment Time: 60 Total Billed Treatment 1, BRADLEY DOBSONJUAN A PUBLICIST Apr 18, 2021 14:53
[2021-04-18 20:00] VITALS: BP 120/71
[2021-04-18] MEDS: ZOLPIDEM 5 MG (AMBIEN) TAB PO PRN (21:59)
[2021-04-18] MEDS: rOPINIRole 0.25 MG (REQUIP) TAB PO SCH (21:59)
[2021-04-18] MEDS: AMITRIPTYLINE 50 MG (ELAVIL) TAB PO SCH (22:00)
[2021-04-19] MEDS: CATHETER FLUSH 10 ML SYR IV SCH ×3 (06:40→22:00)
[2021-04-19] MEDS: CYANOCOBALAMIN 1,000 MCG (VITAMIN B-12) TABLET PO SCH (06:42)
[2021-04-19] MEDS: LEVOTHYROXINE 75 MCG (LEVOTHROID) TABLET PO SCH (06:42)
[2021-04-19] MEDS: PREGABALIN 75 MG (LYRICA) CAP PO SCH ×3 (06:42→21:58)
[2021-04-19] MEDS: MELOXICAM 7.5 MG (MOBIC) TABLET PO SCH ×2 (06:42→17:10)
[2021-04-19 08:00] VITALS: BP 103/59
[2021-04-19] MEDS: VITAMIN D3 25 MCG (1,000 UNITS) TABLET PO SCH (08:33)
[2021-04-19] MEDS: FOLIC ACID 1 MG TAB PO SCH (08:33)
[2021-04-19] MEDS: DOCUSATE SODIUM 100 MG (COLACE) CAP PO SCH ×2 (08:33→21:45)
[2021-04-19] MEDS: eZETimibe 10 MG (ZETIA) TABLET PO SCH (08:33)
[2021-04-19] MEDS: SENNA W/DOCUSATE (SENOKOT S) TABLET PO SCH ×2 (08:33→21:45)
[2021-04-19] MEDS: MONTELUKAST 10 MG (SINGULAIR) TAB PO SCH (08:33)
[2021-04-19] MEDS: ASPIRIN E.C. 81 MG (ECOTRIN) TAB PO SCH ×2 (08:33→21:58)
[2021-04-19] MEDS: polyethylene glycoL POWDER 17 GM (MIRALAX) PACK PO SCH ×2 (08:33→21:45)
[2021-04-19] MEDS: PANTOPRAZOLE 40 MG (PROTONIX) TAB PO SCH ×2 (08:33→21:58)
[2021-04-19] MEDS: HYDROXYCHLOROQUINE 200 MG (PLAQUENIL) TAB PO SCH ×2 (08:33→17:10)
[2021-04-19] MEDS: metFORMIN 500 MG (GLUCOPHAGE) TAB PO SCH ×2 (08:33→17:10)
[2021-04-19] MEDS: DICLOFENAC 1% GEL 100 GM (VOLTAREN) TUBE TOP PRN (08:34)
[2021-04-19] MEDS: PHENAZOPYRIDINE 100 MG (PYRIDIUM) TABLET PO PRN (08:36)
[2021-04-19] MEDS: LINZESS 290 MCG CAPSULE PO SCH (08:37)
--- NOTE | 2021-04-19 10:28 | Occupational Ther Daily Note ---
OT Current Status-Daily Note Subjective Pt was lying supine in bed upon OT arrival. Pt stated she was ready to get ready for the day and wanted to get her room ready for tomorrow. Pt agreed to tx session. Mental Status/Objective Patient Orientation: Person, Place, Time, Situation ADL-Treatment Therapy Code Descriptions/Definitions Functional [place] Measure: 0=Not Assessed/NA 4=Minimal Assistance 1=Total Assistance 5=Supervision or Setup 2=Maximal Assistance 6=Modified [place] 3=Moderate Assistance 7=Complete IndependenceSCALE: Activities may be completed with or without assistive devices. 4-Bquyekguqd-wsixjps completes the activity by him/herself with no assistance from a helper. 5-Set-up or Clean-up Assistance-helper sets up or cleans up; patient completes activity. [place] assists only prior to or following the activity. 4-Supervision or Touching Assistance-helper provides verbal cues and/or touching/steadying and/or contact guard assistance as patient completes activity. Assistance may be provided throughout the activity or intermittently. 3-Partial/Moderate Assistance-helper does LESS THAN HALF the effort. [place] lifts, holds or supports trunk or limbs, but provides less than half the effort. 2-Substantial/Maximal Assistance-helper does MORE THAN HALF the effort. [place] lifts or holds trunk or limbs and provides more than half the effort. 4-Lvodmzxky-epjdxa does ALL the effort. Patient does none of the effort to complete the activity. Or, the assistance of 2 or more helpers is required for the patient to complete the activity. If activity was not attempted, code reason: 7-Patient Refused. 9-Not Applicable-not attempted and the patient did not perform the activity before the current illness, exacerbation or injury. 10-Not Attempted due to Environmental Limitations-(lack of equipment, weather restraints, etc.). 88-Not Attempted due to Medical Conditions or Safety Concerns. Eating (QC): 6 (Per pt task in IND no AE needed. ) Oral Hygiene (QC): 6 (Pt performed task IND sink side while standing. ) Shower/Bathe Self (QC): 6 (Pt performed task IND, was able to wash and dry all parts. ) Upper Body Dressing (QC): 6 (Pt was IND for task. ) Lower Body Dressing (QC): 6 (Pt performed IND for task utilizing a dressing stick. ) On/Off Footwear: 6 (Pt performed task IND w/ dressing stick to doff gripper socks and sock aide to taniya gripper socks. ) Toileting Hygiene (QC): 6 (Pt performed task IND.) Toilet Transfer (QC): 6 (Pt performed task IND.) Other Treatment Pt was lying supine in bed upon OT arrival. Pt stated she was ready to get ready for the day and wanted to get her room ready for tomorrow. Pt agreed to tx session. Pt was IND w/ all tasks on this date. Pt performed bed mobility from supine to EOB. Pt transferred from EOB to standing bedside. Pt performed functional mobility from bedside to closet to retrieve clothing, from closet to toilet. Pt performed toileting task, see above QC's. Pt transferred from sitting on toilet to standing, then to shower bench. Pt performed shower, UBD, LBD, oral hygiene, and grooming sink side, see above for QC's. Pt performed functional mobility in room for room management activity to support ADL function. Pt performed functional mobility from room to therapy gym. Pt participated in cone activity, x3 rounds, x8 cones retrieving cones in all planes w/ seated rest breaks between rounds, to support ROM, bending, twisting, core/BUE strength and endurance for ADL skill. Pt performed functional mobility from therapy gym to chair in room. Post tx session, pt was seated in bed, call light within reach, and all needs met. Education OT Patient Education: Correct positioning, Energy conservation, Exercise program, Modified ADL techniques, Progress toward Goal/Update tx plan, Purpose of tx/functional activities, Rehab process, Transfer techniques, Use of adapted equipment Teaching Recipient: Patient Teaching Methods: Discussion Response to Teaching: Verbalize Understanding OT Short Term Goals Short Term Goals Time Frame: Apr 19, 2021 Toileting hygiene: 4 Shower/bathe self: 4 Lower body dressin Putting on/taking off footwear: 4 OT Merchandise Flow Team Member Goals Prison Goals Time Frame: May 03, 2021 Eating (QC): 6 (met) Oral Hygiene (QC): 6 (met) Toileting Hygiene (QC): 6 (met) Shower/Bathe Self (QC): 6 (met) Upper Body Dressing (QC): 6 (met) Lower Body Dressing (QC): 6 (met) On/Off Footwear (QC): 6 (met) Additional Goals: 1-Demonstrate ADL Tasks, 2-Verbalize Understanding, 3- ImproveStrength/Juan 1=Demonstrate adherence to instructed precautions during ADL tasks. 2=Patient will verbalize/demonstrate understanding of assistive devices/modifications for ADL. 3=Patient will improve strength/tolerance for activity to enable patient to perform ADL's. OT Education/Plan Problem List/Assessment Assessment: Decreased Activ Tolerance, Impaired I ADL's, Impaired Self-Care Skills Discharge Recommendations Plan/Recommendations: Continue POC Treatment Plan/Plan of Care Patient would benefit from OT for education, treatment and training to promote independence in ADL's, mobility, safety and/or upper extremity function for ADL's. Plan of Care: ADL Retraining, Functional Mobility, Group Exercise/Act as Ind, UE Funct Exercise/Act Treatment Duration: May 03, 2021 Frequency: At least 5 of 7 days/Wk (IRF) Estimated Hrs Per Day: 1.5 hours per day Rehab Potential: Fair Time/GCodes Start Time: 09:00 Stop Time: 10:30 Total Time Billed (hr/min): 90 Billed Treatment Time 1 Visit, ADL 3 (45'), FA 3 (45') SARAN RODRIGUEZ OT Apr 19, 2021 10:27
--- NOTE | 2021-04-19 11:22 | Physical Therapy Daily Note ---
PT Daily Note-Current Subjective Pt in recliner upon arrival and agrees to tx. Pt states she is excited for dc tomorrow. Pt states pain 2/10 in L hip. Pain Numeric Pain Scale: 2 Location: Left Location Body Site: Hip Mental Status Patient Orientation: Person, Place, Time, Situation Transfers SCALE: Activities may be completed with or without assistive devices. 7-Bzmtalnivb-qywpqan completes the activity by him/herself with no assistance from a helper. 5-Set-up or Clean-up Assistance-helper sets up or cleans up; patient completes activity. [place] assists only prior to or following the activity. 4-Supervision or Touching Assistance-helper provides verbal cues and/or touching/steadying and/or contact guard assistance as patient completes activity. Assistance may be provided throughout the activity or intermittently. 3-Partial/Moderate Assistance-helper does LESS THAN HALF the effort. [place] lifts, holds or supports trunk or limbs, but provides less than half the effort. 2-Substantial/Maximal Assistance-helper does MORE THAN HALF the effort. [place] lifts or holds trunk or limbs and provides more than half the effort. 2-Ydslsmfor-izjgzz does ALL the effort. Patient does none of the effort to complete the activity. Or, the assistance of 2 or more helpers is required for the patient to complete the activity. If activity was not attempted, code reason: 7-Patient Refused. 9-Not Applicable-not attempted and the patient did not perform the activity before the current illness, exacerbation or injury. 10-Not Attempted due to Environmental Limitations-(lack of equipment, weather restraints, etc.). 88-Not Attempted due to Medical Conditions or Safety Concerns. Roll Left & Right (QC): 6 Sit to Lying (QC): 6 Lying to Sitting/Side of Bed(Q: 6 Sit to Stand (QC): 6 Chair/Hsf-hm-Fbnia Xfer(QC): 6 Toilet Transfer (QC): 6 Car Transfer (QC): 6 Weight Bearing Left Lower Extremity: Left Weight Bearing/Tolerated Gait Training Does the Patient Walk?: Yes Distance: 300' x4 Walk 10 feet (QC): 5 Walk 50 ft with 2 Turns(QC): 5 Walk 150 ft (QC): 5 Walking 10ft/uneven surface-QC: 5 Gait Persons Needed: 1 Gait Assistive Device: None W/O an AD pt has slow, shuffling gait. Would recommend use of FWW for community amb post dc. Wheelchair Training Does the Pt Use a Wheelchair?: No Wheel 50 ft with 2 turns (QC): 9 Wheel 150 ft (QC): 9 Type of Wheelchair: N/A Stair Training Stair Training: Handrails/: 1 handrail #of Steps: 12 1 Step (curb) (QC): 5 4 Steps (QC): 5 12 Steps (QC): 5 Stairs: Pattern: Step to Balance Picking up an Object (QC): 5 Exercises NuStep Minutes: 17 NuStep Workload: 5 Treatments Pt sit to stand from recliner goes to bed. Pt completes bed mobility Indep., able to complete all w/o use of bed rails or VC. Pt amb to car and completes car TF SBA, amb to therapy gym and completes 4 steps x3 w/ use of 1 handrail on R side and SBA. Cone placed on floor and pt able to grab w/o any LOB, SBA. Pt then completes NuStep for 17 mins at WL of 5. Pt amb w/ new B platform FWW that she will be using at home, FWW has been adjusted and pt states it is comfortable and stable. Pt amb 300' w/ FWW and then returns to room, while in room pt uses bathroom indep. Pt then amb to therapy gym w/o AD to perform balance activities. Pt first stands on AirEx, holds static stance 2 mins, followed by SLS 15 seconds on each LE w/ 1 UE support on // bars. Pt then completes dynamic standing balanc e activity, kicking a ball to improve reactions and balance. Pt amb back to room and was left with all needs met. Assessment Current Status: Good Progress Pt Indep. in room, increasing in strength, endurance, and balance. PT Short Term Goals Short Term Goals Time Frame: Apr 18, 2021 Roll Left & Right: 6 Sit to lyin Lying to sitting on side of be: 4 Sit to stand: 4 Walk 10 feet: 4 Walk 50 feet with two turns: 4 Walk 150 feet: 4 PT Fci Goals Fci Goals PT Asphalt Roller Operator Goals Time Frame: May 02, 2021 Roll Left & Right (QC): 6 Sit to Lying (QC): 6 Lying-Sitting on Side/Bed(QC): 6 Sit to Stand (QC): 6 Chair/Coi-yk-Benux Xfer(QC): 6 Toilet Transfer (QC): 6 Car Transfer (QC): 6 Does the Patient Walk: Yes Walk 10 feet (QC): 6 Walk 50ft with 2 Turns (QC): 6 Walk 150 ft (QC): 6 Walking 10ft on Uneven Surface: 6 1 Step (curb) (QC): 4 4 Steps (QC): 4 12 Steps (QC): 88 Picking up an Object (QC): 88 Wheel 50 feet with 2 turns (QC: 9 Wheel 150 feet: 9 PT Plan Treatment/Plan Treatment Plan: Continue Plan of Care Treatment Plan: Bed Mobility, Education, Functional Activity Juan, Functional Strength, Group Therapy, Gait, Safety, Therapeutic Exercise, Transfers Treatment Duration: May 02, 2021 Frequency: At least 5 of 7 days/Wk (IRF) Estimated Hrs Per Day: 1.5 hours per day Patient and/or Family Agrees t: Yes Time/GCodes Time In: 1100 Time Out: 1200 Total Billed Treatment Time: 60 Total Billed Treatment 1, Ex, NM, GT x2 AVERY,HESHAM B[employer] M[employer] OPERATOR Apr 19, 2021 11:22
--- NOTE | 2021-04-19 11:32 | PM&R Progress Note ---
Subjective HPI/CC On Admission Date Seen by Provider: Apr 19, 2021 Time Seen by Provider: 11:15 Subjective/Events-last exam 04/19/2021: Patient doing well Ready for discharge on Thursday Last dose of IV iron will be Thursday Linzess taken every day 04/18/2021: Patient doing very well Wants to try Linzess Samples obtained she will try it today Discharge plan for Thursday Lost IV will replace to give 1 last dose of iron Will need labs done in 2 weeks 04/17/2021: Patient doing well Low oxygen noted which appears to be ongoing to be rheumatoid lung issue Bowels moved 3 days ago will initiate laxatives Discharge planned on Thursday IV iron infusion tolerated 04/16/2021: Patient doing well UTI treated with Levaquin Awaiting microbiology urine culture Bowels are moving with laxatives Third dose of iron infusion 04/15/2021: Patient doing well Bowels moved after suppository and fleets Hemoglobin 8.4 White count 13.5 In and out cath obtained for urine since she does have chronic UTIs and she feels like she has 1 Levaquin is the only thing that works she reports 04/14/2021: Patient doing really well Trying to get Linzess started since she has chronic constipation issues Check meds and labs Pain is well controlled 04/13/2021: Patient doing well Updated her on the iron infusion and B12 injection Talked about hand surgeon consult Denies any new issues 04/12/2021: Patient doing well Diclofenac gel will be used on hands Updated her on x-ray results and Dr. Davis evaluation for thumbs not to be dislocated just RA severe changes he will see her as an outpatient Hemoglobin will be checked periodically to prevent phlebotomy Ordered iron 04/11/2021: Patient doing pretty well Hemoglobin 7.9 Oxygen at night used Hand x-rays reviewed with Dr. Davis who will see her as an outpatient Pain is pretty significant since she is on her third day status post hip fracture repair Checking iron Review of Systems General: Fatigue, Malaise Gastrointestinal: Constipation Neurological: Weakness Objective Exam Vital Signs Vital Signs Date Time Temp Pulse Resp B/P (MAP) Pulse Ox O2 Delivery O2 Flow Rate FiO2 04/19/21 20:15 95 Room Air 04/19/21 20:15 36.7 92 20 144/75 (98) 04/15/21 07:03 1.50 Capillary Refill : Less Than 3 Seconds General Appearance: No Apparent Distress, WD/WN, Chronically ill HEENT: PERRL/EOMI, Normal ENT Inspection, Pharynx Normal Neck: Full Range of Motion, Normal Inspection, Non Tender, Supple, Carotid Bruit Respiratory: Chest Non Tender, Lungs Clear, Normal Breath Sounds, No Accessory Muscle Use, No Respiratory Distress Cardiovascular: Regular Rate, Rhythm, No Edema, No Gallop, No JVD, No Murmur Back: Normal Inspection, No CVA Tenderness, No Vertebral Tenderness Extremity: Normal Capillary Refill, Normal Inspection, Normal Range of Motion (Except left leg), Non Tender, No Calf Tenderness Neurologic/Psychiatric: Alert, Oriented x3, No Motor/Sensory Deficits, Normal Mood/Affect, Abnormal Gait, Motor Weakness (Generalized) Skin: Pallor (Patient states she has been anemic ) Results/Procedures Lab Patient resulted labs reviewed. FIM Transfers Therapy Code Descriptions/Definitions Functional [place] Measure: 0=Not Assessed/NA 4=Minimal Assistance 1=Total Assistance 5=Supervision or Setup 2=Maximal Assistance 6=Modified [place] 3=Moderate Assistance 7=Complete IndependenceSCALE: Activities may be completed with or without assistive devices. 0-Htdcezgrdw-fomfxhk completes the activity by him/herself with no assistance from a helper. 5-Set-up or Clean-up Assistance-helper sets up or cleans up; patient completes activity. [place] assists only prior to or following the activity. 4-Supervision or Touching Assistance-helper provides verbal cues and/or touching/steadying and/or contact guard assistance as patient completes activity. Assistance may be provided throughout the activity or intermittently. 3-Partial/Moderate Assistance-helper does LESS THAN HALF the effort. [place] lifts, holds or supports trunk or limbs, but provides less than half the effort. 2-Substantial/Maximal Assistance-helper does MORE THAN HALF the effort. [place] lifts or holds trunk or limbs and provides more than half the effort. 8-Dljkghfop-jogixg does ALL the effort. Patient does none of the effort to complete the activity. Or, the assistance of 2 or more helpers is required for the patient to complete the activity. If activity was not attempted, code reason: 7-Patient Refused. 9-Not Applicable-not attempted and the patient did not perform the activity before the current illness, exacerbation or injury. 10-Not Attempted due to Environmental Limitations-(lack of equipment, weather restraints, etc.). 88-Not Attempted due to Medical Conditions or Safety Concerns. Roll Left to Right (QC): 6 Sit to Lying (QC): 6 Sit to Stand (QC): 6 Chair/Ibw-ly-Vkygp Xfer(QC): 6 Car Transfer (QC): 6 Gait Training Does the Patient Walk?: Yes Distance: 300', 150' Walk 10 feet (QC): 5 Walk 50 ft with 2 Turns(QC): 5 Walk 150 ft (QC): 5 Walking 10ft/uneven surface-QC: 5 Gait Persons Needed: 1 Gait Assistive Device: None Wheelchair Training Does the Pt Use a Wheelchair?: No Wheel 50 ft with 2 turns (QC): 9 Wheel 150 ft (QC): 9 Stair Training Stair Training: Handrails/: 1 handrail #of Steps: 12 1 Step (curb) (QC): 5 4 Steps (QC): 5 12 Steps (QC): 5 Stairs: Pattern: Step to Balance Picking up an Object (QC): 5 ADL-Treatment Eating (QC): 6 (Per pt task in IND no AE needed. ) Oral Hygiene (QC): 6 (Pt performed task IND sink side while standing. ) Shower/Bathe Self (QC): 6 (Pt performed task IND, was able to wash and dry all parts. ) Upper Body Dressing (QC): 6 (Pt was IND for task. ) Lower Body Dressing (QC): 6 (Pt performed IND for task utilizing a dressing stick. ) On/Off Footwear (QC): 6 (Pt performed task IND w/ dressing stick to doff gripper socks and sock aide to taniya gripper socks. ) Toileting Hygiene (QC): 6 (Pt performed task IND.) Toilet Transfer (QC): 6 (Pt performed task IND.) Assessment/Plan Assessment and Plan Assess & Plan/Chief Complaint Assessment: Left hip fracture status post repair by Dr. 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 DAVIS as an outpatient Iron deficiency anemia giving iron infusions Vitamin B12 deficiency started on supplement Acute UTI history of UTIs started treatment 04/15/2021 Pseudomonas noted on urine culture Plan: Inpatient rehab protocol Supportive care Monitor pain Bowel regimen 04/11/2021: Monitor hemoglobin Check iron level Check B12 level 04/12/2021: Iron infusions Hemoglobin checks periodically 04/13/2021: Continue iron infusions Pain control Monitor closely 04/14/2021: Supportive care B12 and iron supplements Start Linzess 04/15/2021: Start Levaquin for UTI Supportive care Iron infusions 04/16/2021: UTI treatment Iron infusion 04/17/2021: Follow-up in urine culture it is Pseudomonas Discharge Thursday04/18/2021: Supportive care Levaquin for UTI Labs due in 2 weeks Try Linzess 04/19/2021: Discharge home tomorrow Mariah (1) Hip fracture Qualifiers: Qualified Codes: S72.009A - Fracture of unspecified part of neck of unspecified femur, initial encounter for closed fracture LU VARGAS DO Apr 19, 2021 11:32
--- NOTE | 2021-04-19 15:06 | Physical Therapy Daily Note ---
PT Daily Note-Current Subjective Pt in bed upon arrival and agrees to tx. Prior to amb pt states soreness in R hip, but no pain. Post tx, pt states there is a slight pain and asks RN for pain medication. Mental Status Patient Orientation: Person, Place, Time, Situation Transfers SCALE: Activities may be completed with or without assistive devices. 8-Hnakpfntbz-wejvccf completes the activity by him/herself with no assistance from a helper. 5-Set-up or Clean-up Assistance-helper sets up or cleans up; patient completes activity. [place] assists only prior to or following the activity. 4-Supervision or Touching Assistance-helper provides verbal cues and/or t ouching/steadying and/or contact guard assistance as patient completes activity. Assistance may be provided throughout the activity or intermittently. 3-Partial/Moderate Assistance-helper does LESS THAN HALF the effort. [place] lifts, holds or supports trunk or limbs, but provides less than half the effort. 2-Substantial/Maximal Assistance-helper does MORE THAN HALF the effort. [place] lifts or holds trunk or limbs and provides more than half the effort. 4-Qxxzfcnym-ckbyuh does ALL the effort. Patient does none of the effort to complete the activity. Or, the assistance of 2 or more helpers is required for the patient to complete the activity. If activity was not attempted, code reason: 7-Patient Refused. 9-Not Applicable-not attempted and the patient did not perform the activity before the current illness, exacerbation or injury. 10-Not Attempted due to Environmental Limitations-(lack of equipment, weather restraints, etc.). 88-Not Attempted due to Medical Conditions or Safety Concerns. Roll Left & Right (QC): 6 Sit to Lying (QC): 6 Lying to Sitting/Side of Bed(Q: 6 Sit to Stand (QC): 6 Weight Bearing Left Lower Extremity: Left Weight Bearing/Tolerated Gait Training Does the Patient Walk?: Yes Distance: 300' x2 Walk 10 feet (QC): 6 Walk 50 ft with 2 Turns(QC): 5 Walk 150 ft (QC): 5 Gait Assistive Device: None Pt has slow and shuffling, but stable gait w/o AD for short distances. Would suggest pt to use FWW for community amb, when fatigued, or on uneven surfaces Wheelchair Training Does the Pt Use a Wheelchair?: No Treatments Pt supine to sit and sit to stand from bed and amb 300' followed by seated rest break. Pt then amb another 300', while looking for cones placed throughout ARU at various heights. Pt maneuvers in smaller spaces, able to turn around, bulk picker objects from floor and from higher surfaces. Pt returns to room and request to use bathroom. Pt ad tarun in room and remained in bathroom post tx, with all needs met. Assessment Current Status: Good Progress Pt increasing strength, endurance, balance, and mobility. Pt Donna in room and ready to dc tomorrow. PT Short Term Goals Short Term Goals Time Frame: Apr 18, 2021 Roll Left & Right: 6 Sit to lyin Lying to sitting on side of be: 4 Sit to stand: 4 Walk 10 feet: 4 Walk 50 feet with two turns: 4 Walk 150 feet: 4 PT Prison Goals Prison Goals PT Local Telephone Operator Goals Time Frame: May 02, 2021 Roll Left & Right (QC): 6 Sit to Lying (QC): 6 Lying-Sitting on Side/Bed(QC): 6 Sit to Stand (QC): 6 Chair/Wug-rc-Gvena Xfer(QC): 6 Toilet Transfer (QC): 6 Car Transfer (QC): 6 Does the Patient Walk: Yes Walk 10 feet (QC): 6 Walk 50ft with 2 Turns (QC): 6 Walk 150 ft (QC): 6 Walking 10ft on Uneven Surface: 6 1 Step (curb) (QC): 4 4 Steps (QC): 4 12 Steps (QC): 88 Picking up an Object (QC): 88 Wheel 50 feet with 2 turns (QC: 9 Wheel 150 feet: 9 PT Plan Treatment/Plan Treatment Plan: Continue Plan of Care Treatment Plan: Bed Mobility, Education, Functional Activity Juan, Functional Strength, Group Therapy, Gait, Safety, Therapeutic Exercise, Transfers Treatment Duration: May 02, 2021 Frequency: At least 5 of 7 days/Wk (IRF) Estimated Hrs Per Day: 1.5 hours per day Patient and/or Family Agrees t: Yes Time/GCodes Time In: 1430 Time Out: 1500 Total Billed Treatment Time: 30 Total Billed Treatment 1, GT, HESHAM BOSWELL FILTER SCREEN CLEANER Apr 19, 2021 15:06
[2021-04-19 20:15] VITALS: BP 144/75
[2021-04-19] MEDS: ZOLPIDEM 5 MG (AMBIEN) TAB PO PRN (21:58)
[2021-04-19] MEDS: rOPINIRole 0.25 MG (REQUIP) TAB PO SCH (21:58)
[2021-04-19] MEDS: AMITRIPTYLINE 50 MG (ELAVIL) TAB PO SCH (21:58)
[2021-04-20] MEDS: CATHETER FLUSH 10 ML SYR IV SCH ×2 (06:00→08:24)
[2021-04-20] MEDS: CYANOCOBALAMIN 1,000 MCG (VITAMIN B-12) TABLET PO SCH (06:18)
[2021-04-20] MEDS: PREGABALIN 75 MG (LYRICA) CAP PO SCH (06:18)
[2021-04-20] MEDS: MELOXICAM 7.5 MG (MOBIC) TABLET PO SCH (06:18)
[2021-04-20] MEDS: LEVOTHYROXINE 75 MCG (LEVOTHROID) TABLET PO SCH (06:18)
[2021-04-20] MEDS: HYDROXYCHLOROQUINE 200 MG (PLAQUENIL) TAB PO SCH (08:23)
[2021-04-20] MEDS: ASPIRIN E.C. 81 MG (ECOTRIN) TAB PO SCH (08:23)
[2021-04-20] MEDS: DOCUSATE SODIUM 100 MG (COLACE) CAP PO SCH (08:23)
[2021-04-20] MEDS: metFORMIN 500 MG (GLUCOPHAGE) TAB PO SCH (08:23)
[2021-04-20] MEDS: SENNA W/DOCUSATE (SENOKOT S) TABLET PO SCH (08:23)
[2021-04-20] MEDS: MONTELUKAST 10 MG (SINGULAIR) TAB PO SCH (08:23)
[2021-04-20] MEDS: eZETimibe 10 MG (ZETIA) TABLET PO SCH (08:23)
[2021-04-20] MEDS: FOLIC ACID 1 MG TAB PO SCH (08:23)
[2021-04-20] MEDS: VITAMIN D3 25 MCG (1,000 UNITS) TABLET PO SCH (08:23)
[2021-04-20] MEDS: IRON SUCROSE 200 MG/10 ML (VENOFER) VIAL IV SCH (08:24)
[2021-04-20] MEDS: PANTOPRAZOLE 40 MG (PROTONIX) TAB PO SCH (08:24)
[2021-04-20] MEDS: LINZESS 290 MCG CAPSULE PO SCH (08:33)
[2021-04-20] MEDS: polyethylene glycoL POWDER 17 GM (MIRALAX) PACK PO SCH (09:38)
--- NOTE | 2021-04-20 09:39 | Therapy Team Discharge Summary ---
Therapy Discharge Summary Discharge Recommendations Date of Discharge Occupational Therapy Pt admitted to ARU s/p L MICHAEL. At OF, pt was independent with all ADLs and functional mobility, no AD. Upon initial evaluation, pt required set up assistance with eating, CGA oral care, min A showering, set up upper body dres sing, mod A lower body dressing, mod A footwear and min A toileting. OT tx focused on increasing BUE Strength and activity tolerance, increasing safety and independence with ADLs and functional mobility, and education on AE for LE dressing. At discharge, pt was independent with all ADLs, meeting all LTGs. OT recommendations include a sock aide and dressing stick. Pt to discharge from facility on this date, d/c from OT. Decreased Activ Tolerance, Impaired I ADL's, Impaired Self-Care Skills PT Senior Living Goals Senior Living Goals PT Senior Living Goals Time Frame: May 02, 2021 Roll Left to Right (QC): 6 Sit to Lying (QC): 6 Lying-Sitting on Side/Bed(QC): 6 Sit to Stand (QC): 6 Chair/Bqf-rb-Avcbp Xfer(QC): 6 Car Transfer (QC): 6 Does the Patient Walk: Yes Walk 10 feet (QC): 6 Walk 10ft-Uneven Surface(QC): 6 Walk 50ft with 2 Turns (QC): 6 Walk 150 ft (QC): 6 Wheel 50 feet with 2 turns (QC: 9 1 Step (curb) (QC): 4 4 Steps (QC): 4 12 Steps (QC): 88 Picking up an Object (QC): 88 OT Diamond Blender Goals Diamond Blender Goals Time Frame: May 03, 2021 Eating (QC): 6 (met) Oral Hygiene (QC): 6 (met) Shower/Bathe Self (QC): 6 (met) Upper Body Dressing (QC): 6 (met) Lower Body Dressing (QC): 6 (met) On/Off Footwear (QC): 6 (met) Toileting Hygiene (QC): 6 (met) Toilet/Commode Transfer (QC): 6 Additional Goals: 1-Demonstrate ADL Tasks, 2-Verbalize Understanding, 3- ImproveStrength/Juan 1=Demonstrate adherence to instructed precautions during ADL tasks. 2=Patient will verbalize/demonstrate understanding of assistive devices/modifications for ADL. 3=Patient will improve strength/tolerance for activity to enable patient to perform ADL's. SARAN RODRIGUEZ OT Apr 20, 2021 09:39
[2021-04-20 09:41] VITALS: BP 134/60
--- NOTE | 2021-04-20 10:18 | Discharge Summary ---
Diagnosis/Chief Complaint Date of Admission Apr 10, 2021 at 15:35 Date of Discharge Discharge Date: Apr 20, 2021 Discharge Diagnosis Assessment: Left hip fracture status post repair by Dr. 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 GAMBLE as an outpatient Iron deficiency anemia giving iron infusions Vitamin B12 deficiency started on supplement Acute UTI history of UTIs started treatment 04/15/2021 Pseudomonas noted on urine culture Plan: Inpatient rehab protocol Supportive care Monitor pain Bowel regimen 04/11/2021: Monitor hemoglobin Check iron level Check B12 level 04/12/2021: Iron infusions Hemoglobin checks periodically 04/13/2021: Continue iron infusions Pain control Monitor closely 04/14/2021: Supportive care B12 and iron supplements Start Linzess 04/15/2021: Start Levaquin for UTI Supportive care Iron infusions 04/16/2021: UTI treatment Iron infusion 04/17/2021: Follow-up in urine culture it is Pseudomonas Discharge Thursday04/18/2021: Supportive care Levaquin for UTI Labs due in 2 weeks Try Linzess (1) Hip fracture Reason Hospital Visit Discharge Summary Discharge Physical Examination Allergies: Coded Allergies: No Known Drug Allergies (Unverified , 04/10/21) Vitals & I&Os Vital Signs Date Time Temp Pulse Resp B/P (MAP) Pulse Ox O2 Delivery O2 Flow Rate FiO2 04/20/21 11:40 37.2 89 18 134/60 93 Room Air 04/15/21 07:03 1.50 General Appearance: Alert, Oriented X3, Cooperative Respiratory: Clear to Auscultation Cardiovascular: Regular Rate Psych/Mental Status: Mental Status NL Hospital Course Was the Problem List Reviewed?: Yes Hospital course: Patient had an uneventful hospital course when she was admitted to rehab from [facility] after sustaining a hip fracture. Severe rheumatoid arthritis precluded her from having a rapid recovery. She required a walker with 2 platforms. Iron deficiency anemia noted patient completed 5 doses of IV iron. Vitamin B12 was also given. She did have a UTI of Pseudomonas and responded to Levaquin. Overall she did very well she had no concerns and she will establish care with me in clinic. Labs (last 24 hrs) Laboratory Tests 04/11/21 05:19: White Blood Count 9.9, Red Blood Count 2.99L, Hemoglobin 7.9L, Hematocrit 25L, Mean Corpuscular Volume 84, Mean Corpuscular Hemoglobin 26, Mean Corpuscular Hemoglobin Concent 32, Red Cell Distribution Width 20.0H, Platelet Count 227, Mean Platelet Volume 11.7, Immature Granulocyte % (Auto) 3, Neutrophils (%) (Auto) 50, Lymphocytes (%) (Auto) 34, Monocytes (%) (Auto) 10, Eosinophils (%) (Auto) 4, Basophils (%) (Auto) 1, Neutrophils # (Auto) 4.9, Lymphocytes # (Auto) 3.3, Monocytes # (Auto) 1.0, Eosinophils # (Auto) 0.4H, Basophils # (Auto) 0.1, Immature Granulocyte # (Auto) 0.3H, Sodium Level 142, Potassium Level 4.2, Chloride Level 108H, Carbon Dioxide Level 22, Anion Gap 12, Blood Urea Nitrogen 15, Creatinine 0.78, Estimat Glomerular Filtration Rate 73, BUN/Creatinine Ratio 19, Glucose Level 111H, Calcium Level 9.1, Corrected Calcium 9.6, Iron Level 21L , Total Bilirubin 0.4, Aspartate Amino Transf (AST/SGOT) 37H, Alanine Aminotransferase (ALT/SGPT) 42, Alkaline Phosphatase 94, Total Protein 6.2L, Albumin 3.4, Vitamin B12 Level 285 04/15/21 05:44: White Blood Count 13.5H, Red Blood Count 3.17L, Hemoglobin 8.4L, Hematocrit 28L, Mean Corpuscular Volume 87, Mean Corpuscular Hemoglobin 27, Mean Corpuscular Hemoglobin Concent 30L, Red Cell Distribution Width 21.3H, Platelet Count 379, Mean Platelet Volume 11.2, Immature Granulocyte % (Auto) 7, Neutrophils (%) (Auto) 50, Lymphocytes (%) (Auto) 28, Monocytes (%) (Auto) 11, Eosinophils (%) (Auto) 4, Basophils (%) (Auto) 1, Neutrophils # (Auto) 6.7, Lymphocytes # (Auto) 3.8, Monocytes # (Auto) 1.5H, Eosinophils # (Auto) 0.5H, Basophils # (Auto) 0.1, Immature Granulocyte # (Auto) 0.9H, Sodium Level 140, Potassium Level 4.1, Chloride Level 107, Carbon Dioxide Level 23, Anion Gap 10, Blood Urea Nitrogen 13, Creatinine 0.85, Estimat Glomerular Filtration Rate 66, BUN/Creatinine Ratio 15, Glucose Level 103, Calcium Level 9.4, Corrected Calcium 9.9, Total Bilirubin 0.6, Aspartate Amino Transf (AST/SGOT) 49H, Alanine Aminotransferase (ALT/SGPT) 56H, Alkaline Phosphatase 120, Total Protein 6.4, Albumin 3.4 04/15/21 12:15: Urine Color YELLOW, Urine Clarity CLEAR, Urine pH 6.0, Urine Specific [place] 1.015L, Urine Protein NEGATIVE, Urine Glucose (UA) NEGATIVE, Urine Ketones NEGATIVE, Urine Nitrite POSITIVEH, Urine Bilirubin NEGATIVE, Urine Urobilinogen 0.2, Urine Leukocyte Esterase 2+H, Urine RBC (Auto) TRACE-IH, Urine RBC RARE, Urine WBC 25-50H, Urine Squamous Epithelial Cells NONE, Urine Crystals NONE, Urine Bacteria LARGEH, Urine Casts NONE, Urine Mucus NEGATIVE, Urine Culture Indicated YES Microbiology 04/15/21 Urine Culture - Final, Complete Pseudomonas aeruginosa Pending Labs Microbiology Date/Time Source Procedure Growth Status 04/15/21 12:15 Urine Clean Catch Urine Culture - Final Pseudomonas aeruginosa Complete Laboratory Tests 04/11/21 05:19: White Blood Count 9.9, Red Blood Count 2.99, Hemoglobin 7.9, Hematocrit 25, Mean Corpuscular Volume 84, Mean Corpuscular Hemoglobin 26, Mean Corpuscular Hemoglobin Concent 32, Red Cell Distribution Width 20.0, Platelet Count 227, Mean Platelet Volume 11.7, Immature Granulocyte % (Auto) 3, Neutrophils (%) (Auto) 50, Lymphocytes (%) (Auto) 34, Monocytes (%) (Auto) 10, Eosinophils (%) (Auto) 4, Basophils (%) (Auto) 1, Neutrophils # (Auto) 4.9, Lymphocytes # (Auto) 3.3, Monocytes # (Auto) 1.0, Eosinophils # (Auto) 0.4, Basophils # (Auto) 0.1, Immature Granulocyte # (Auto) 0.3, Sodium Level 142, Potassium Level 4.2, Chloride Level 108, Carbon Dioxide Level 22, Anion Gap 12, Blood Urea Nitrogen 15, Creatinine 0.78, Estimat Glomerular Filtration Rate 73, BUN/Creatinine Ratio 19, Glucose Level 111, Calcium Level 9.1, Corrected Calcium 9.6, Iron Level 21, Total Bilirubin 0.4, Aspartate Amino Transf (AST/SGOT) 37, Alanine Aminotransferase (ALT/SGPT) 42, Alkaline Phosphatase 94, Total Protein 6.2, Albumin 3.4, Vitamin B12 Level 285 04/15/21 05:44: White Blood Count 13.5, Red Blood Count 3.17, Hemoglobin 8.4, Hematocrit 28, Mean Corpuscular Volume 87, Mean Corpuscular Hemoglobin 27, Mean Corpuscular Hemoglobin Concent 30, Red Cell Distribution Width 21.3, Platelet Count 379, Mean Platelet Volume 11.2, Immature Granulocyte % (Auto) 7, Neutrophils (%) (Auto) 50, Lymphocytes (%) (Auto) 28, Monocytes (%) (Auto) 11, Eosinophils (%) (Auto) 4, Basophils (%) (Auto) 1, Neutrophils # (Auto) 6.7, Lymphocytes # (Auto) 3.8, Monocytes # (Auto) 1.5, Eosinophils # (Auto) 0.5, Basophils # (Auto) 0.1, Immature Granulocyte # (Auto) 0.9, Sodium Level 140, Potassium Level 4.1, Chloride Level 107, Carbon Dioxide Level 23, Anion Gap 10, Blood Urea Nitrogen 13, Creatinine 0.85, Estimat Glomerular Filtration Rate 66, BUN/Creatinine Ratio 15, Glucose Level 103, Calcium Level 9.4, Corrected Calcium 9.9, Total Bilirubin 0.6, Aspartate Amino Transf (AST/SGOT) 49, Alanine Aminotransferase (ALT/SGPT) 56, Alkaline Phosphatase 120, Total Protein 6.4, Albumin 3.4 04/15/21 12:15: Urine Color YELLOW, Urine Clarity CLEAR, Urine pH 6.0, Urine Specific [place] 1. 015, Urine Protein NEGATIVE, Urine Glucose (UA) NEGATIVE, Urine Ketones NEGATIVE, Urine Nitrite POSITIVE, Urine Bilirubin NEGATIVE, Urine Urobilinogen 0.2, Urine Leukocyte Esterase 2+, Urine RBC (Auto) TRACE-I, Urine RBC RARE, Urine WBC 25-50, Urine Squamous Epithelial Cells NONE, Urine Crystals NONE, Urine Bacteria LARGE, Urine Casts NONE, Urine Mucus NEGATIVE, Urine Culture Indicated YES Discharge Home Medications: Active Scripts Active Linzess (Linaclotide) 290 Mcg Capsule 290 Mcg PO DAILY 30 Days Vitamin B-12 (Cyanocobalamin (Vitamin B-12)) 1,000 Mcg Tablet 1,000 Mcg PO DAILY@0700 Phenazopyridine HCl 100 Mg Tablet 100 Mg PO TIDPC PRN Stool Softener-Laxative Tablet (Sennosides/Docusate Sodium) 1 Each Tablet 1 Ea PO BID Lactulose 20 Gm/30 Ml Solution 10 Gm PO BID PRN Meloxicam 7.5 Mg Tablet 7.5 Mg PO Q12H Diclofenac Sodium 100 Gm Gel..gram. 0 Gm TOP QID PRN Aspirin EC (Aspirin) 81 Mg Tablet.dr 81 Mg PO BID Levofloxacin 750 Mg Tablet 750 Mg PO Q48H Next dose is Thursday04/21/21 Dulcolax (Bisacodyl) 5 Mg Tablet.dr 5 Mg PO DAILY PRN Tramadol HCl 50 Mg Tablet 50 Mg PO Q6H PRN Methotrexate 25 mg/ml Vial (Methotrexate Sodium/Pf) 25 Mg/1 Ml Vial 20 Mg IJ THU 14 Days 20MG (0.8ML) On hold until approved by Dr Montalvo Leucovorin Calcium 5 Mg Tablet 5 Mg PO FRI 14 Days ACCORDING TO PATIENT THIS MEDICATION IS ON HOLD TO BE TAKEN 8 HOURS AFTER METHOTREXATE DOSE On hold until approved by Dr Montalvo Hydroxychloroquine Sulfate 200 Mg Tablet 200 Mg PO BID 14 Days On hold until approved by Dr Montalvo Humira(Cf) Pen (Adalimumab) 80 Mg/0.8 Ml [email or web address].kit 40 Mg SQ EVERY 2 WEEKS 14 Days ACCORDING TO PATIENT THIS MEDICATION IS ON HOLD On hold until approved by Dr Montalvo Reported Stool Softener (Docusate Sodium) 100 Mg Tablet 100-200 Mg PO BID PRN Miralax (Polyethylene Glycol 3350) 17 Gm Powd.pack 17 Gm PO DAILY PRN Ambien (Zolpidem Tartrate) 10 Mg Tablet 10 Mg PO HS PRN Vitamin D3 (Cholecalciferol (Vitamin D3)) 25 Mcg Tablet 25 Mcg PO DAILY Ropinirole HCl 0.25 Mg Tablet 0.25 Mg PO HS Pregabalin 75 Mg Capsule 75 Mg PO Q8H Pantoprazole Sodium 40 Mg Tablet.dr 40 Mg PO BID Montelukast Sodium 10 Mg Tablet 10 Mg PO DAILY Metformin HCl 500 Mg Tablet 500 Mg PO BID Levothyroxine (Levothyroxine Sodium) 75 Mcg Capsule 75 Mcg PO DAILY Folic Acid 1 Mg Tablet 1 Mg PO DAILY Ezetimibe 10 Mg Tablet 10 Mg PO DAILY Amitriptyline HCl 100 Mg Tablet 100 Mg PO HS Proair Hfa (Albuterol Sulfate) 1 Puff Puff 2 Puff IH Q6H PRN Instructions to patient/family Please see electronic discharge instructions given to patient. Diagnosis/Problems Diagnosis/Problems (1) Hip fracture Qualifiers: Qualified Codes: S72.009A - Fracture of unspecified part of neck of unspecified femur, initial encounter for closed fracture LU VARGAS DO Apr 20, 2021 10:18
--- NOTE | 2021-04-20 11:19 | Therapy Team Discharge Summary ---
Therapy Discharge Summary Discharge Recommendations Date of Discharge Physical Therapy Patient came to rehab following a left MICHAEL. Upon evaluation patient performed bed mobility with independence, supine <-> sit min assist, sit <-> stand min assist from lower surfaces but CGA for higher surfaces, transfers CGA, car transfer min assist, ambulated 150' with a rolling bilateral platform walker with CGA (including 50' with at least 2 turns of 90 degrees and 10' over an uneven surface), and can go up and down 1 step using a bilateral platform walker with CGA. Patient has been performing bed mobility and transfer training, balance and endurance training, functional strengthening, stair training, gait training, and education. Patient has made good progress and has met all of her senior living goals except for ambulation. Now, patient performs bed mobility and transfers with independence, independent with car transfer, ambulates 300' with a bilateral platform walker with setup (including 50' with at least 2 turns of 90 degrees and 10' over an uneven surface), and can go up and down 12 steps using 1 handrail with setup. Patient is discharging from this facility today and will be discharged from PT at this time. Occupational Therapy Decreased Activ Tolerance, Impaired I ADL's, Impaired Self-Care Skills PT Ethnology Teacher Goals Ethnology Teacher Goals PT [facility] Goals Time Frame: May 02, 2021 Roll Left to Right (QC): 6 Sit to Lying (QC): 6 Lying-Sitting on Side/Bed(QC): 6 Sit to Stand (QC): 6 Chair/Fiy-hi-Bobfm Xfer(QC): 6 Car Transfer (QC): 6 Does the Patient Walk: Yes Walk 10 feet (QC): 6 Walk 10ft-Uneven Surface(QC): 6 Walk 50ft with 2 Turns (QC): 6 Walk 150 ft (QC): 6 Wheel 50 feet with 2 turns (QC: 9 1 Step (curb) (QC): 4 4 Steps (QC): 4 12 Steps (QC): 88 Picking up an Object (QC): 88 OT Pen[facility]entiary Goals Ethnology Teacher Goals Time Frame: May 03, 2021 Eating (QC): 6 (met) Oral Hygiene (QC): 6 (met) Shower/Bathe Self (QC): 6 (met) Upper Body Dressing (QC): 6 (met) Lower Body Dressing (QC): 6 (met) On/Off Footwear (QC): 6 (met) Toileting Hygiene (QC): 6 (met) Toilet/Commode Transfer (QC): 6 Additional Goals: 1-Demonstrate ADL Tasks, 2-Verbalize Understanding, 3- ImproveStrength/Juan 1=Demonstrate adherence to instructed precautions during ADL tasks. 2=Patient will verbalize/demonstrate understanding of assistive devices/modifi cations for ADL. 3=Patient will improve strength/tolerance for activity to enable patient to perform ADL's. SHAY GIL PT Apr 20, 2021 11:19
[2021-04-20 11:40] VITALS: BP 134/60
== END 2021-04-20 16:26 | disposition home or self-care (01) | DRG 560 ==
PROVIDERS: ADMIT Internal Medicine; ATTEND Internal Medicine
DX: S72.90XD Unspecified fracture of unspecified femur, subsequent encounter for closed fracture with routine healing (principal); N39.0 Urinary tract infection, site not specified; R26.89 Other abnormalities of gait and mobility; M06.9 Rheumatoid arthritis, unspecified; M24.445 Recurrent dislocation, left finger; M24.444 Recurrent dislocation, right finger; D50.9 Iron deficiency anemia, unspecified; E53.8 Deficiency of other specified B group vitamins; E11.9 Type 2 diabetes mellitus without complications; K21.9 Gastro-esophageal reflux disease without esophagitis; E03.9 Hypothyroidism, unspecified; E78.00 Pure hypercholesterolemia, unspecified; E78.5 Hyperlipidemia, unspecified; H54.7 Unspecified visual loss; I10 Essential (primary) hypertension; K59.00 Constipation, unspecified; B96.5 Pseudomonas (aeruginosa) (mallei) (pseudomallei) as the cause of diseases classified elsewhere; Z79.84 Long term (current) use of oral hypoglycemic drugs; Z79.82 Long term (current) use of aspirin; Z23 Encounter for immunization; W18.09XD Striking against other object with subsequent fall, subsequent encounter
CPT/HCPCS: 36415; 80053; 81000; 82607; 83540; 85025; 87077; 87088; 87186; 94760

== ENCOUNTER 2022-12-31 12:26 | Outpatient (CLI) | payer MEDICARE, BC ==
[~2022-12-31] VITALS: Ht 165.1 cm; Wt 67.2 kg
[~2022-12-31 12:26] MED LIST: ADAL80PE2 SQ; ALBU8.5H6 IH; AMIT100T2 PO; ASPI-1238 PO; BISA-65 PO; CHOL-34 PO; CYAN-41 PO; DICL100G13 TOP; DOCU100T7 PO; EZET10TA49 PO; FOLI1TAB33 PO; HYDR200T46 PO; LACT20SO2 PO; LEUC5TAB PO; LEVO750T PO; LEVO75CA5 PO; LINA290C PO; MELO7.5T46 PO; METF-397 PO; METH25VI15 IJ; MONT-40 PO; PANT40TA52 PO; PHEN-826 PO; POLY17PO6 PO; PREG75CA75 PO; ROPI0.253 PO; SENN-271 PO; TRAM50TA3 PO; ZOLP10TA PO
[2022-12-31] MEDS ORDERED: IRON DEXTRAN 25 MG/NS 6.25 ML TOTAL VOLUME IV ONE ×3 (13:00)
[2022-12-31] MEDS ORDERED: IRON DEXTRAN 1,000 MG/NS 250 ML IVPB IV ONE ×2 (13:15)
[2022-12-31] MEDS ORDERED: LIRA0.6P SQ (14:43)
[2022-12-31 15:15] VITALS: BP 158/88
== END 2022-12-31 15:15 | disposition home or self-care (01) ==
LOC: SDC 12:26
PROVIDERS: ATTEND Internal Medicine
DX: E61.1 Iron deficiency (principal)
CPT/HCPCS: 96365

== ENCOUNTER → 2023-02-16 | Outpatient (CLI) | payer MEDICARE, BC ==
[~2023-02-16] MED LIST changes: -HYDR200T46 PO; +HYDR200T71 PO; +LIRA0.6P SQ
--- NOTE | 2023-02-16 18:11 | Diagnostic Imaging Report ---
INDICATION: Fall with right thigh region pain. TECHNIQUE: AP and lateral views of the right femur are obtained. FINDINGS: No acute fracture or dislocation is identified. No abnormal lytic or sclerotic focus is seen, and there is no radiopaque foreign body. IMPRESSION: No acute abnormality. Dictated by: Dictated on workstation # [id number]
--- NOTE | 2023-02-16 18:15 | Diagnostic Imaging Report ---
INDICATION: Right hip and leg pain AP view of the pelvis is obtained with coned AP and frog-leg views of right hip. 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 There is mild narrowing of the right hip joint space with marginal spurring, however, no acute fracture or malalignment is identified. There is no evidence of lytic or sclerotic lesion. IMPRESSION: No acute osseous abnormality. Dictated by: Dictated on workstation # [id number]
--- NOTE | 2023-02-16 18:49 | Diagnostic Imaging Report ---
INDICATION: Fall with left knee injury and pain AP, lateral and oblique views of left knee reveal no acute fracture. There is narrowing of the medial knee joint compartment with marginal spurring. No lytic or sclerotic lesion is identified. There may be mild joint fluid. IMPRESSION: There may be mild joint effusion, however, no acute osseous abnormality is seen. Dictated by: Dictated on workstation # [id number]
== END ==
LOC: RAD 17:49
PROVIDERS: ATTEND Internal Medicine
DX: M25.562 Pain in left knee (principal); M25.551 Pain in right hip
CPT/HCPCS: 73552; 73562